=== PATIENT | male | born 1945 | race Caucasian/White ===

== ENCOUNTER 2022-01-02 08:26 | Outpatient (CLI) | payer MEDICARE, OTHER, SELFPAY ==
[2022-01-02 13:56] LABS: Basophils Absolute Auto 0.06 K/uL (0.00-0.30); Basophils Percent Auto 1.1 % (0.0-3.0); Eosinophils Absolute Auto 0.17 K/uL (0.00-0.50); Hematocrit 38.9 % (37.0-53.0); Immature Granulocytes Abs Auto 0.01 K/uL (0.00-0.30); Lymphocytes Percent Auto 14.8 % (20-44); Mean Corpuscular HGB Conc 33 gm/dL (32-36); Mean Corpuscular Hemoglobin 30 pg (26-34); Mean Corpuscular Volume 88 fL (80-100); Monocytes Percent Auto 10.7 % (0.0-11.0); Neutrophils Absolute Auto 3.93 K/uL (1.7-7.0); Neutrophils Percent Auto 70.2 % (42.0-72.0); Platelet Count* 255 K/uL (140-440); RDW Coefficient of Variation % 15.8 % (11.5-15.5)
[2022-01-02 14:05] LABS: Slide Review Reflex No
[2022-01-02 16:59] LABS: Chloride* 95 mmol/L (96-114); Potassium* 4.3 mmol/L (3.6-5.1); Sodium* 129 mmol/L (135-149)
[2022-01-02 17:01] LABS: Cholesterol* 180 mg/dL (90-199); Creatinine* 0.7 mg/dL (0.5-1.5); Estimated Glomerular Filt Rate 94 ml/min
[2022-01-02 17:02] LABS: Blood Urea Nitrogen* 11 mg/dL (7-30); Carbon Dioxide* 29 mmol/L (20-32); Glucose* 96 mg/dL (60-115); Triglycerides* 86 mg/dL (40-149)
[2022-01-02 17:03] LABS: HDL Cholesterol* 68 mg/dL (>=40); LDL Cholesterol Calculated 95 mg/dL (<100)
== END 2022-01-02 08:27 | disposition home or self-care (01) ==
PROVIDERS: PCP Family Medicine; Visit Provider Family Medicine
DX: E78.5 Hyperlipidemia, unspecified (principal); I10 Essential (primary) hypertension; M10.9 Gout, unspecified
CPT/HCPCS: 80048; 80061; 85025

== ENCOUNTER 2022-12-31 09:42 | Outpatient (CLI) | payer MEDICARE, OTHER, SELFPAY | END 2022-12-31 09:43 | disposition home or self-care (01) | PROVIDERS: PCP Family Medicine; Visit Provider Family Medicine | DX: E78.2 Mixed hyperlipidemia (principal); Z79.899 Other long term (current) drug therapy | CPT/HCPCS: 80048; 80061; 84460; 85025 ==

== ENCOUNTER 2023-02-12 07:03 | Day surgery (SDC) | payer MEDICARE, OTHER, SELFPAY ==
[2023-02-12] VITALS (13 sets, daily range): BP systolic 122–161; BP diastolic 65–98; PULSE 55–70; RESP 14–20; TEMP 36.4–36.7; O2SAT 93–100; BMI 32.7
[2023-02-12] MEDS: SODIUM CHLORIDE 0.9 % (FLUSH) 10 ML SYRINGE IVF (07:35)
[2023-02-12] MEDS: LACTATED RINGERS 1000 ML 1,000 ML 100 ML IV ×2 (07:35→10:26)
--- NOTE | 2023-02-12 08:00 | CRLHL7_ITS ---
For Patients: As a result of the Century Cures Act, medical imaging exams and procedure reports are released immediately into your electronic medical record. You may view this report before your referring provider. If you have questions, please contact your health care provider. 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 Technique: Nuclear medicine sentinel lymph node injection. Comparison: None Findings: DOSE: 0.52 millicuries technetium 99 M filtered sulfur colloid. Following approximately 1.0 milliliters of 1 percent xylocaine anesthesia, the radiotracer was placed intradermally at the site of interest in the right forearm. No post injection imaging was performed in the Radiology department. Impression: Uneventful right forearm nuclear medicine sentinel lymph node injection as detailed above. Dictated by Robe Parmar MD @ 02/12/2023 6:13:22 PM (Electronically Signed)
--- NOTE | 2023-02-12 09:26 | P.GSOP_ITS ---
Operative Note Pre-op diagnosis: 1. 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 Post-op diagnosis: Same Type of Procedure: 1. Wide local excision of right forearm melanoma with complex incisional closure of 15.5 cm. 2. Right axillary sentinel lymph node biopsy. Indications: 77-year-old male was seen in clinic for evaluation of a newly diagnosed right forearm melanoma. The lesion has been there for a long time. This was biopsied by his primary care doctor in clinic and pathology returned as melanoma with no ulceration 2.8 mm deep with positive peripheral and deep margins. On clinical exam in the right proximal to mid radial forearm there was a healing scab from patient's previous biopsy. The scab was approximately 1 cm wide. Given patient's clinical history and his physical exam, wide local excision of melanoma with right axillary sentinel lymph node biopsy was recommended. The procedure was discussed in detail. The risks associated procedure including inf ection, bleeding, lymphedema, and the need for additional treatments were all discussed with the patient, and he agreed to proceed. Procedure Description: After discussing the risks and benefits of the procedure, the patient signed informed consent.? The operative site was marked and the patient was brought to the operating room and placed on the operating table in supine position.? Care was taken to pad the patient's pressure points.?? The patient was then intubated by anesthesia.?? The operative site was then prepped and draped in the usual st erile fashion.? A time-out was then performed. The right forearm biopsy scar was identified. It was measuring approximately 9 mm. 2 cm medial and lateral margins were measured and the incision was marked with a marking pen. Local anesthetic was injected at the surgical site. The ellipse of skin containing 0.9 cm melanoma scar was then excised with cautery. The excision of 2.8 mm melanoma was carried down to the fascia with 2 cm lateral and medial margins. The ellipse of skin was marked with a single stitch superior and double lateral and sent to pathology for permanent section. Medial and lateral skin flaps were then developed with cautery. Anterior cubital vein was in the plane of dissection and that was divided and tied with Vicryl ties. Hemostasis was achieved with cautery and Vicryl ties. The skin flaps were extensive to achieve tension free closure. This incision extended into the distal upper arm. Moist Ray-Daniel was then placed over the surgical field and we proceeded with a right sentinel lymph node biopsy. Radioactive tracer was injected in the right forearm near the healing scar over 1 hour prior to surgical incision. 5 milliliters of Lymphazurin blue were personally injected by wv near the right forearm healing melanoma scar intraoperatively for sentinel lymph node identification. A Alexys counter was brought onto the field in the right axilla to identify the best area for the sentinel node biopsy. An oblique skin incision was then made over that area. Subcutaneous tissues were dissected with electrocautery. No green lymph nodes were identified. An enlarged but fatty lymph node was palpated and was excised with cautery. This did not have any signal. An additional lymph node was identified with radioactive signal. This was excised with cautery and sent to pathology as sentinel lymph node #1. This node was also enlarged but was fatty and not matted. No additional lymph nodes were palpated. Axillary julián tissue was examined again with the [place] counter and and no additional significant signal was identified. The first enlarged lymph node with no signal was sent to pathology as additional right axillary tissue. Hemostasis was achieved with cautery. Deltopectoral fascia was then closed with interrupted 3-0 Vicryl sutures. This incision was then closed in layers with 3-0 Vicryl interrupted stitches to re-approximate subcutaneous layer and 4-0 Monocryl subcuticular stitch to close skin. We then proceeded with right forearm incisional closure. This was closed in layers with interrupted 2-0 in 3-0 Vicryl sutures. Minimal tension was noted in the center of the incision. This forearm incision was 15.5 cm. Steri-Strips and sterile dressings were then placed over the both incisions. All counts were correct at the end of the case. The patient was then woken and transported to the recovery area in stable condition. ? The patient tolerated the procedure well. Anesthesia: GETA Surgeon: Terrance Hutton MD Estimated blood loss (mL): 10 Additional Specimen Information: 1. Right forearm melanoma. 2. Right axillary sentinel lymph node 1. 3. Additional right axillary lymph node. Condition: stable Disposition: PACU Date of procedure: 02/12/23 Primary Cutaneous Melanoma Operation Performed with Curative Intent: Yes Original Breslow thickness of the lesion: Depth in mm (2.8) Depth in MM: 2 Clinical margin width (measured from the edge of the lesion or the prior exci kenyon scar): 2 cm Depth of Excision: Full thickness skin/subcutaneous tissue down to fascia (melanoma)
[2023-02-12] MEDS: CEFAZOLIN 2 GM INJ IVP (09:57)
[2023-02-12] MEDS: ISOSULFAN BLUE 5 ML VIAL INJECTION (10:25)
[2023-02-12] MEDS: BUPIVACAINE 0.25% 30 ML 20 ML INJECTION (10:56)
--- NOTE | 2023-02-12 11:59 | W.ANESCHARGE ---
Anesthesia Charges Start Date/Time Anesthesia Start Date: 02/12/23 Anesthesia Start Time: 09:46 Stop Date/Time Anesthesia Stop Date: 02/12/23 Anesthesia Stop Time: 11:58
--- NOTE | 2023-02-12 12:18 | W.ANESCHARGE ---
Anesthesia Charges Start Date/Time Anesthesia Start Date: 02/12/23 Anesthesia Start Time: 09:46 Stop Date/Time Anesthesia Stop Date: 02/12/23 Anesthesia Stop Time: 11:58 Summary Extremes of Age - Over 70 or under 1: MDA
== END 2023-02-12 13:52 | disposition home or self-care (01) ==
PROVIDERS: PCP Family Medicine; Visit Provider Surgery
PROC: (CPT 11600; principal; 2023-02-12 09:00)
PROC: (CPT 11600; 2023-02-12 09:00)
DX: C43.61 Malignant melanoma of right upper limb, including shoulder (principal)
CPT/HCPCS: 11600; 38500; 17999; 01610; 38792; 88305; 88307; 88342; 99100; A9541; J0665; J0690; J2371; J2405; J2704; J3010; J7120

== ENCOUNTER 2023-06-04 11:01 | Outpatient (CLI) | payer MEDICARE, OTHER, SELFPAY | END 2023-06-04 11:02 | disposition home or self-care (01) | PROVIDERS: PCP Family Medicine; Visit Provider Family Medicine | DX: Z01.818 Encounter for other preprocedural examination (principal) | CPT/HCPCS: 80048; 85025 ==

== ENCOUNTER 2023-12-09 10:45 | Outpatient (CLI) | payer MEDICARE, OTHER, SELFPAY ==
--- OUTSIDE RECORDS SUMMARY | 2023-12-09 10:54 | XMS_ITS | Encounter Summary ---
Author Organization [facility] Address [address] [place] [address] Care Team Providers Care Systems Checkout Mechanic Name Role Phone Elsewhere, Pcp Primary Care Provider Unavailabl e Reason for Referral * Outpatient (Routine) - Authorized Specialty Diagnoses / Procedures Referred By Zak giron Referred To Contact Diagnoses Pneumonia Community Acquired Influenza Gonzalo Pichardo M.D. [address] [place] [phone] Robe Bejarano M.D. [address] [place] [phone] Referral ID Status Reason Start Date Expiration Date Visits Requested Visits Authorized [id number] Authorized Continuity of Care 11/23/2023 05/24/2025 1 1 * Outpatient (Routine) - Authorized Specialty Diagnoses / Procedures Referred By Zak giron Referred To Contact Community Internal Medicine Gonzalo Pichardo M.D. [address] [place] [phone] [facility] Region Referral ID Status Reason Start Date Expiration Date V isits Requested Visits Authorized [id number] Authorized 11/23/2023 05/24/2025 1 1 Scheduling Instructions 3-5 Days After Discharge Encounter Details Date Type Department Care Team (Latest Contact Info) Description 11/20/2023 9:33 PM CDT - 11/23/2023 12:31 PM CDT Hospital Encounter [facility], Fifth Floor [address] [place] [address] Marielena Ma M.D. [address] [place] [phone] Thad Ureña M.B.B.S., M.D. [address] [place] [phone] Gonzalo Pichardo M.D. [address] [place] [address] Pneumonia Community Acquired [J18.9] (Primary Dx); Pneumonia Community Acquired; Influenza Discharge Disposition: Home or Self Care Social History Tobacco Use Types Packs/Day Years Used Date Smoking Tobacco: Former Cigarettes Alcohol Use Standard Drinks/Week Comments Yes 2 (1 standard drink = 0.6 oz pur e alcohol) daily [facility] Utilities Answer Date Recorded In the past 12 months has [employer], gas, oil, or water [facility] threatened to shut off services in your home? No 11/20/2023 Humiliation, Afraid, Rape, and Kick questionnair e Answer Date Recorded Within the last year, have y ou been afraid of your partner or ex-partner? No 11/20/2023 Within the last year, have y ou been humiliated or emotionally abused in other ways by your partner or ex-partner? No Within the last year, have y ou been kicked, hit, slapped, or otherwise physically hurt by your partner or ex-partner? No 11/20/2023 Within the last year, have y ou been raped or forced to have any kind of sexual activity by your partner or ex-partner? No 11/20/2023 Overall Financial Resource Strain (CARDIA) Answe r Date Recorded How hard is it for you to pa y for the very basics like food, housing, medical care, and heating? Not hard at all 02/20/2023 Exercise Vital Sign Answer Date Recorde d On average, how many days pe r week do you engage in moderate to strenuous exercise (like a brisk walk)? 3 days 09/30/2023 On average, how many minutes do you engage in exercise at this level? 10 min 09/30/2023 Hunger Vital Sign Answer Date Recorded Within the past 12 months, y ou worried that your food would run out before you got the money to buy more. Never true 11/20/19 24 Within the past 12 months, t he food you bought just didn't last and you didn't have money to get more. Never true 11/20/2023 PRAPARE - Transportation Answer Date Re corded In the past 12 months, has l ack of transportation kept you from medical appointments or from getting medications? No 11/09 In the past 12 months, has l ack of transportation kept you from meetings, work, or from getting things needed for daily living? No 11/20/2023 Nutrition Answer Date Recorded On average, how many serving s of fruits and vegetables do you eat per day (serving size is equal to 1 cup or approximately the size of a tennis ball)? 3-5 09/30/2023 Dental Answer Date Recorded Dental: Regular Dentist Yes 09/30/19 Employment Answer Date Recorded Employment status Retired 09/30/2023 Housing Stability Answer Date Recorded What is your living situation today? [facility] to live 11/20/2023 Sex and Gender Information Value Date Recorded Sex Assigned at Male 09/30/2023 2:25 PM CDT Gender Identity Male 09/30/2023 2:25 PM CDT Sexual Orientation Straight 09/30/2023 2: 25 PM CDT documented as of this encounter Last Filed Vital Signs Vital Sign Reading Time Taken Comments Blood Pressure 120/63 11/23/2023 10:55 AM CDT Pulse 65 11/23/2023 10:55 AM CDT Temperature 36.5 ??C (97.7 ??F) 11/23/2023 5:10 AM CD T Respiratory Rate 18 11/23/2023 10:55 AM CDT Oxygen Saturation 93% 11/23/2023 10:55 AM CDT Inhaled Oxygen Concentration - - Weight 100 kg (221 lb 1.9 oz) 11/22/2023 6:04 AM CDT Height 177.8 cm (5' 10) 11/20/2023 9:33 PM CDT Body Mass Index 31.73 11/20/2023 9:33 PM CDT documented in this encounter Discharge Summaries * Gonzalo Pichardo M.D. - 11/23/2023 12:31 PM CDT DISCHARGE SUMMARY BRIEF OVERVIEW Discharge Hospital: Hospital: [facility] Primary Care Physician: Darci SORIA Discharge Provider Team: [facility] ([facility]) [facility] Primary Care Provider Phone Number: None Primary Care Provider Fax Number: None Admission Date: 11/20/2023 Discharge Date: 11/23/23 PRINCIPAL DIAGNOSIS # Influenza A infections complicated by community-acquired pneumonia due to Haemophilus influenzae SECONDARY DIAGNOSES # Mechanical fall, no injury identified # History of CVA 2017 # Chronic hyponatremia # Elevated liver enzymes, mild # Hypertension # Hypokalemia # Hypomagnesemia # BPH with history urinary retention - patient is status post HoLEP 07/01/2023, doing well since. # Obesity with BMI of 32 DISCHARGE DISPOSITION Home or Self Care [1] ACTIVE ISSUES REQUIRING FOLLOW UP AST and ALT mildly elevated. HCV and HBV screening is negative. Patient reported drinking 2-3 beersper day, recommend patient to stop/cut back drinking alcohol and repeat liver enzymes test in the outpatient setting. Chronic hyponatremia, recommend discontinue Dyazide and see if sodium level improves. Could consider alternative antihypertensives such as losartan if BP becomes elevated. Recommend flu vaccination once available. Consider outpatient physical therapy as suggested by PT. OUTPATIENT FOLLOW UP Scheduled Appointments 11/26/2023 1:00 PM [facility] For appointment details refer to your Patient Appointment Guide. TEST RESULTS PENDING AT DISCHARGE Pending Labs Order Current Status Bacterial Culture, Aerobic + Susceptibility, Respiratory Preliminary result DETAILS OF HOSPITAL STAY REASON FOR ADMISSION Pneumonia Community Acquired HOSPITAL COURSE 78 yo gentleman with medical commorbidities including CVA 2018, chronic hyponatremia, hypertension,BPH s/p HoLEP 07/01/2023, obesity, was sent here from [place] for management of pneumonia. Presentedto [place] [facility] with malaise, productive cough, shortness of breath, decrease appetite, fall due to gen eralized weakness. This was preceded by recent URI sypmtoms. Found to have pneumonia predominantly b/l Lower lobe on CT. Negative for COVID-19. Sputum PCR was positive for Influenza A and also Haemophilus influenzae. Patient received 3 days of IV ceftriaxone and azithromycin in house with plan to complete a 5 day course on discharge with cefdinir. Patient was also started on Tamiflu with plan for5 days. Patient feels much better, remained on room air and cough subsided. Discharge home transported by family. MEDICATIONS CHANGED DURING THIS HOSPITAL STAY Discharge Medications Stopped Medications triamterene-hydroCHLOROthiazide 37.5-25 mg per capsule Commonly known as: Dyazide New Medications Sig Disp Start cefdinir 300 mg capsule Commonly known as: Omnicef Take 1 capsule (300 mg total) by mouth 2 (two) times a day before morning and evening meals for 3 doses Indications: Respiratory tract infection, community acquired. 3 capsule oseltamivir 75 mg capsule Commonly known as: Tamiflu Take 1 capsule (75 mg total) by mouth 2 (two) times a day for 7 doses Indications: Influenza. 7 capsule Medications To Continue Sig Disp Start aspirin [address] tablet Take 1 tablet (81 mg total) by mouth daily. Hold for 1 week after surgery atorvastatin 40 mg tablet Commonly known as: Lipitor Take 40 mg by mouth daily. cholecalciferol 25 mcg (1,000 Unit) tablet Generic drug: cholecalciferol (vitamin D3) Take 25 mcg by mouth daily. clopidogreL 75 mg tablet Commonly known as: Plavix Take 1 tablet (75 mg total) by mouth daily. Hold for 1 week after surgery ginkgo biloba leaf extract 60 mg capsule Take 1 capsule by mouth daily. hydrOXYzine 25 mg tablet Commonly known as: Atarax Take 25 mg by mouth at bedtime as needed for allergies. metoprolol succinate 200 mg 24 hr tablet Commonly known as: Toprol XL Take 1 tablet by mouth daily. Multiple Vitamins tablet Generic drug: multivitamin Take 1 tablet by mouth daily. omega-3 fatty acids-fish oil 300-1,000 mg per capsule Take 2 g by mouth daily. omeprazole [address] capsule Commonly known as: PriLOSEC Take 20 mg by mouth every morning before breakfast. THIAMINE HCL (VITAMIN B1) ORAL Take 1 tablet by mouth daily. vitamin E 90 mg (200 Unit) capsule Take 1 capsule by mouth daily. CONSULTS ORDERED DURING THIS ADMISSION IP CONSULT TO CARE MANAGEMENT Social Determinants of Health Social Determinants of Health Transportation Needs: No Transportation Needs (11/20/2023) PRAPARE - Transportation Lack of Transportation (Medical): No Lack of Transportation (Non-Medical): No Housing Stability: Low Risk (11/20/2023) Housing Stability Housing: Living Situation: I have a steady place to live Food Insecurity: No Food Insecurity (11/20/2023) Hunger Vital Sign Worried About Running Out of Food in the Last Year: Never true Ran Out of Food in the Last Year: Never true Utilities: Not At Risk (11/20/2023) [facility] Utilities Threatened with loss of utilities: No Intimate Partner Violence: Not At Risk (11/20/2023) Humiliation, Afraid, Rape, and Kick questionnaire Fear of Current or Ex-Partner: No Emotionally Abused: No Physically Abused: No Sexually Abused: No CONDITION AT DISCHARGE improved I saw and evaluated Mr. Kaushik Daily today and provided counseling [id number] at bedside. I personally spent a total of greater than 30 minutes in counseling and coordination of care as described above to facilitate the hospital discharge. Discharge instructions were provided to the patient and caregiver(s). documented in this encounter Discharge Instructions * Discharge Instr - Non Talent Follow-Ups* Diana Mixon - 11/23/2023 8:44 AM CDT PCP to follow in 3-5 days Please call to set up post Hospital Appointment Office: [phone] * Attachments The following attachments cannot be sent through Care Everywhere. * Pneumonia: Community-Acquired Pneumonia in Adults ([place]) documented in this encounter Medications at Time of Discharge Medication Sig Dispensed Refills Start Date End Date aspirin [address] tablet Take 1 tablet (81 mg total) by mouth daily. Hold for 1 week after surgery 07/01/2023 atorvastatin (LIPITOR) 40 mg tablet Take 40 mg by mouth daily. 01/25/2018 cholecalciferol, vitamin D3, (cholecalciferol) 25 mcg (1,000 Unit) tablet Take 25 mcg by mouth daily. clopidogreL (PLAVIX) 75 mg tablet Take 1 tablet (75 mg total) by mouth daily. Hold for 1 week after surgery 07/01/2023 ginkgo biloba leaf extract 60 mg capsule Take 1 capsule by mouth daily. hydrOXYzine (ATARAX) 25 mg tablet Take 25 mg by mouth at bedtime as needed for allergies. metoprolol succinate (TOPROL-XL) 200 mg 24 hr tablet Take 1 tablet by mouth daily. 01/13/2018 multivitamin (Multiple Vitamins) tablet Take 1 tablet by mouth daily. omega-3 fatty acids-fish oil 300-1,000 mg per capsule Take 2 g by mouth daily. omeprazole (PriLOSEC) [address] capsule Take 20 mg by mouth every morning before breakfast. 03/17/2018 THIAMINE HCL, VITAMIN B1, ORAL Take 1 tablet by mouth daily. vitamin E 90 mg (200 Unit) capsule Take 1 capsule by mouth daily. 01/09/2011 cefdinir (Omnicef) 300 mg capsuleIndications:Re spiratory tract infection, community acquired Take 1 capsule (300 mg total) by mouth 2 (two) times a day before morning and evening meals for 3 doses Indications: Respiratory tract infection, community acquired. 3 capsule 11/23/2023 11/25/2023 oseltamivir (Tamiflu) 75 mg capsuleIndications:In fluenza Take 1 capsule (75 mg total) by mouth 2 (two) times a day for 7 doses Indications: Influenza. 7 capsule 11/23/2023 11/27/2023 documented as of this encounter Progress Notes * Gonzalo Pichardo M.D. - 11/22/2023 4:51 PM CDT Images from the original note were not included. Internal Medicine Progress Note Date of Admission: 11/20/2023 LOS: 2 days Primary Care Physician: Darci SORIA SUBJECTIVE REASON FOR ADMISSION: Pneumonia Community Acquired Interval Updates Cough is improving, no shortness of breath at rest. Recommended him to walk around more and see howhe feels. Appetite appears to be decent. Intake/Output Summary (Last 24 hours) at 11/22/2023 1751 Last data filed at 11/22/2023 1651 Gross per 24 hour Intake 1690 ml Output 395 ml Net 1295 ml OBJECTIVE VITAL SIGNS BP 122/78 (BP Location: Left arm;Upper, Patient Position: Sitting) Pulse 86 Temp 36.3 ??C (Temporal) Resp 17 Ht 177.8 cm Wt 100 kg SpO2 100% BMI 31.73 kg/m?? PHYSICAL EXAMINATION General: No acute distress. Alert and Orientated HEENT: Normocephalic, atraumatic. No scleral icterus. Oral mucosa moist. Cardiovascular: Normal rate, regular rhythm. Lungs: Clear to Auscultation Abdomen: Soft, nontender, nondistended. Extremities: No bilateral lower extremity edema. Intake/Output Summary (Last 24 hours) at 11/22/2023 1751 Last data filed at 11/22/2023 1651 Gross per 24 hour Intake 1690 ml Output 395 ml Net 1295 ml DIAGNOSTICS Results from last 7 days Lab Units 11/22/23 0808 11/21/23 0858 11/20/23 1705 WBC x10(9)/L 11.4* 10.4* 12.8* HEMOGLOBIN g/dL 11.2* 11.1* 11.0* HEMATOCRIT % 34.0* 33.4* 32.9* PLATELETS AUTO x10(9)/L 381* 339* 321* Results from last 7 days Lab Units 11/22/23 0808 11/21/23 0858 11/20/23 1705 SODIUM P mmol/L 130* 128* 126* CHLORIDE P mmol/L 92* 91* 87* BUN P mg/dL 14 16 18 CREATININE mg/dL 0.86 0.94 1.03 CALCIUM P mg/dL 8.7* 8.6* 9.3 Results from last 7 days Lab Units 11/22/23 0808 11/21/23 0858 11/20/23 1705 ALBUMIN P g/dL 3.2* 3.2* 3.5 AST P U/L 84* 101* 119* ALT P U/L 91* 96* 91* ALK PHOS P U/L 120 123 115 BILIRUBIN TOTAL P mg/dL 0.4 0.6 0.8 Micro: Results for orders placed or performed during the hospital encounter of 11/20/23 (from the past 336hour(s)) HBs Antigen Scrn, Serum Specimen: Blood, Venous Result Value HBs Antigen Scrn, S Nonreactive HCV Ab w/Reflex to HCV PCR, Serum Specimen: Blood, Venous Result Value HCV Ab, S Negative Pneumonia Panel, PCR Specimen: Sputum Result Value Specimen Source SPUTUM Acinetobacter calcoaceticus-baumannii complex Undetected Enterobacter cloacae complex Undetected Escherichia coli Undetected Haemophilus influenzae Detected >=10(7) (A) Klebsiella aerogenes Undetected Klebsiella oxytoca Undetected Klebsiella pneumoniae complex Undetected Moraxella catarrhalis Undetected Proteus species Undetected Pseudomonas aeruginosa Undetected Serratia marcescens Undetected Staphylococcus aureus complex Undetected Streptococcus agalactiae Undetected Streptococcus pneumoniae Undetected Streptococcus pyogenes Undetected Chlamydia pneumoniae Undetected Legionella pneumophila Undetected Mycoplasma pneumoniae Undetected Adenovirus Undetected Coronavirus Undetected Human Metapneumovirus Undetected Human Rhinovirus/Enterovirus Undetected Influenza A Detected (A) Influenza B Undetected Parainfluenza Undetected Respiratory Syncytial Virus Undetected Gram Stain Specimen: Sputum Specimen Source Site: Sputum Result Value Gram Stain Mixed microbiota Radiology: Reviewed pertinent radiology reports. Last 2 days: CT Chest with IV Contrast, CT Abdomen Pelvis with IV Contrast Result Date: 11/20/2023 Impression: Multifocal bilateral pneumonia, predominantly in the lower lobes. No acute findings in the abdomen or pelvis. DX Chest AP or PA and Lateral 2 Views Result Date: 11/20/2023 Impression: Normal chest MEDICATIONS: Scheduled Meds: aspirin, 81 mg, oral, Daily atorvastatin, 40 mg, oral, Daily at bedtime azithromycin, 500 mg, oral, Daily at bedtime cefTRIAXone, 2 g, intravenous, Daily at bedtime clopidogreL, 75 mg, oral, Daily enoxaparin, 40 mg, subcutaneous, Daily at bedtime metoprolol succinate, 200 mg, oral, Daily oseltamivir, 75 mg, oral, BID pantoprazole, 40 mg, oral, Daily before morning meal [Held by provider] triamterene-hydroCHLOROthiazide, 1 capsule, oral, QAM Continuous Infusions: PRN Meds: acetaminophen guaiFENesin hydrOXYzine ASSESSMENT / PLAN # Influenza A infections complicated by community-acquired pneumonia due to Haemophilus influenzae - Presented with malaise, productive cough, shortness of breath, decrease appetite, fall due to generalized weakness. Followed by a recent URI syndrome with runny nose. Found to have pneumonia predominantly b/l Lower lobe on CT. negative for COVID-19. Did consult speech, however overall no major concern from speech/swallow standpoint. Plan: - Continue IV ceftriaxone (5 days) and Azithromycin (3 days) - Start Tamiflu for 5 days - RT to assess. Aerobika. Incentive spirometry # Mechanical fall # History of CVA 2017 - Appreciate PT/OT evaluation, patient will return home once ready. - Patient is chronically on DAPT due to the CVA. Continue statin. # Chronic hyponatremia - Potentilly related to the Dyazide, this should be discontinued. - Will monitor. # Elevated liver enzymes, mild: AST and ALT mildly elevated. AST has been chronically elevated. HCVand HBV screening is negative. He reported drinking 2-3 beers per day, recommend patient to stop drinking alcohol and repeat liver enzymes test in the outpatient setting. # Hypertension - resume home medications, metoprolol. Discontinue Dyazide, not a good option given falls and also hyponatremia. # Hypokalemia, replaced will monitor. # Hypomagnesemia, replaced will monitor. # BPH with history urinary retention - patient is status post HoLEP 07/01/2023, doing well since. # Obesity with BMI of 32 DISPOSITION: Pending improvement. NUTRITION: ANTICOAGULANTS/DVT PROPHYLAXIS: AntiCoag AntiPlatelet Meds IP/OP Low Molecular Weight Heparins Refills Start End enoxaparin injection 40 mg (Lovenox) -- 11/20/2023 -- 40 mg, subcutaneous, Daily at bedtime Platelet Aggregation Inhibitors - Thienopyridine Agents Refills Start End clopidogreL tablet 75 mg (Plavix) -- 11/21/2023 -- 75 mg, oral, Daily DIET: Current Diet Adult Diet Regular starting at 11/22 923 INFUSIONS: LDA: Armstrong Catheter Present?: No. CODE STATUS: DNR/DNI Total time spent 45 minutes, including time spent in slyw-ow-eyya evaluation and coordination of care Gonzalo Pichardo M.D. [facility] * Jerrell Miller, P.T. - 11/22/2023 10:38 AM CDT Physical Therapy Inpatient Treatment Note SUBJECTIVE Patient: Kaushik Daily Room: [facility] Referring/Attending Provider: Gonzalo Pichardo M.D. Medical Diagnosis: 1. Pneumonia Community Acquired [J18.9] Payor: MEDICARE / Plan: MEDICARE A AND B / Product Type: Medicare / Subjective Comments: Pt awake in bedside chair, agreeable to working with therapist, notes continues to cough, had difficulty sleeping as a result. Activity Orders: Nursing Activity Orders (From admission, onward) Start Ordered 11/20/237 Activity/Position: Up to Chair, Up with Assistance; Other (comment); Ambulate as muchas possible considering previous activity level and physical functioning. Resume activity level following recovery from procedure and/or tests unless otherwise ... Until discontinued Question Answer Comment Activity Level: Up to Chair Activity Level: Up with Assistance Ambulation Goals: Other (comment) Ambulation goals comment: Ambulate as much as possible considering previous activity level and physical functioning. Resume activity level following recovery from procedure and/or tests unless otherwise directed. Up to chair goals: With meals Restrictions/Precautions: None Brace/Device: None 11/20/23 Precautions/Restrictions: Fall Precautions and Aspiration Precautions Weight Bearing Status: Full weight bearing Bed Alarm/Mastic: Bed alarm and Mastic Invasive Lines/Drains: Intravenous line Oxygen Delivery: Room air OBJECTIVE Patient Presents: seated in the chair Pain Assessment: None described Adverse Response to Treatment: none Vitals monitored throughout session; within normal ranges. Therapeutic Exercise: NA Therapeutic Activity: Instructed pt on use of PEP device and incentive spirometer as he is confusedas to the function of each. With PEP, explained goal of preventing airway closure and increasing collateral ventilation. Instructed pt on performing 3x in front of therapist, cueing required to maintain an upright posture and hold breath after inhalation or 5 seconds. With incentive spirometer, explained pt purpose of facilitating a sustained slow deep breath. Instructed pt on performing 3x, cueing required to slow down his breath. Instructed pt on multiple sit to stands, tactile and verbal cues used to promote proper positioningand proper use of arm rests when standing up/sitting down, showed poor carry over during session requiring multiple cues. Instructed pt on stair management to assess performance and aid pt with safe entry into/out of his home. Pt with one railing at home so instructed him to use one railing. Pt with LOB with descent however, this was due to the thread on our therapy steps getting caught on his sock. Pt Instructed to perform again and on second attempt demonstrated a much better performance without LOB. Neuromuscular Re-Education: The following activity was performed in the parallel bars: Pt performedbackwards walking with bilateral UE support for 18 meters to promote LE/trunk stabilization, proprioception, and help reduce his risk for falling. Pt required frequent tactile and verbal cues to maintain an upright trunk posture, keep LE neutral, slide arms back, and take short steps. Pt reports adequate fatigue (RPE: 6/10) at end of activity. Bed Mobility: Did not occur Transfers: Sit to stand: Supervision, Stand to sit: Supervision Devices used: Front wheeled walker Cuing provided: verbal and tactile cues Gait Assessment: Gait Training: Distance: 2x10 meters in hospital room (to and from w/c) Assistance: Contact guard assist Device: Front wheeled walker Quality: increased fwd trunk flexion, fwd head posture, LLE out-toeing Cueing: Verbal, Tactile, for safety awareness, positioning COG over JOY, proper body mechanics, proper posture, and reducing muscle tension Stairs: Gait on Stairs: 2x2 steps Assistive Device: Handrail Assistance: Contact guard assist Cueing: Verbal, Tactile, for safety awareness, positioning COG over JOY, proper body mechanics, andproper posture Patient Disposition at the end of Treatment: was left in bedside chair with chair alarm on at end of session with call light within reach. All needs met and questions answered. Patient/caregiver verbalized understanding to contact nursing staff for all needs including transfers and ambulation if appropriate. Assessment Discharge Recommendations: From a physical therapy standpoint, patient would benefit from discharging home with outpatient therapy. Barriers to Discharge Home: Current functional status Level of Care Needed - PT: Assistance with stairs Equipment Recommended - PT: Front-wheeled walker, Single-point cane Clinical Impression: Mr. Daily is a 78 y.o. male who has been hospitalized 2 day(s) with an admitting diagnosis of: 1. Pneumonia Community Acquired [J18.9] Pt notes he is continuing to cough and produce sputum. Educated pt on proper use and difference between PEP and incentive spirometer. Pt instructed on numerous sit to stands during session, continuedcues to use arm rests. Pt performed backwards walking in parallel bars to promote balance/proprioception, cueing required throughout activity. Pt instructed on stair management with CGA, had one LOB d/t his socks getting caught on step, able to show a better performance of activity upon second attempt. Pt ambulated in hospital room with CGA using his front WW. Currently, patient presents with limitations including weakness, impaired pulmonary function, impaired balance, and limited endurance, leading to difficulty standing, walking, managing stairs, and tolerating activity. Skilled physical therapy treatment during this hospitalization is medically necessary in order to provide graded activities to promote patients functional return, safety and quality of life with the established rehabilitation goals. Functional Goals and Timeframes: PT Goal #1: Feels perform bed mobility pr set up at home with modified independence to return home safely PT Goal #1 to be achieved by: 12/05/23 PT Goal #2: Patient will be able to perform transfers of sit to stand and stand to sit with least restrictive device and modified independence to return home safely PT Goal #2 to be achieved by: 12/05/23 PT Goal #3: Patient will be able to ambulate 75 m with supervision and least restrictive assistive device to return home safely PT Goal #3 to be achieved by: 12/05/23 PT Goal #4: Patient will be able to ascend and descend 4 stairs with home rails per patient's home set up and supervision to return home safely PT Goal #4 to be achieved by: 12/05/23 Plan Patient agrees with the plan of care and goals. Continue per plan of care PT Amount: 1 visit per day PT Frequency: 5 times per week PT Duration: until functional goals are met or patient is discharged from the hospital Plan for next session: progress mobility as able Time Spent with Patient Therapeutic Interventions Neuromuscular Re-Education (min): 15 min Therapeutic Activity (min): 25 min Time Tracking Total Timed Units (min): 40 min Total Treatment Time (min): 40 min Jerrell Zeng P.T. * Gonzalo Pichardo M.D. - 11/21/2023 3:05 PM CDT Images from the original note were not included. Internal Medicine Progress Note Date of Admission: 11/20/2023 LOS: 1 day Primary Care Physician: ELSEWHERE, PCP SUBJECTIVE REASON FOR ADMISSION: Pneumonia Community Acquired Interval Updates Continues to have a productive cough. No dyspnea, satting well on room air. No fever or chills. Cough is causing some abdominal pain likely abdominal wall origin otherwise no pain at rest. Intake/Output Summary (Last 24 hours) at 11/21/20232004 Last data filed at 11/21/2023 1850 Gross per 24 hour Intake 990 ml Output 725 ml Net 265 ml OBJECTIVE VITAL SIGNS BP 147/60 (BP Location: Left arm;Upper) Pulse 69 Temp 36.4 ??C (Temporal) Resp 17 Ht 177.8 cm Wt 100 kg SpO2 93% BMI 31.73 kg/m?? PHYSICAL EXAMINATION General: No acute distress. Alert and Orientated HEENT: Normocephalic, atraumatic. No scleral icterus. Oral mucosa moist. Neck: Supple. No visible goiter. Cardiovascular: Normal rate, regular rhythm. Lungs: Clear to Auscultation Abdomen: Soft, nontender, nondistended. Extremities: No bilateral lower extremity edema. Intake/Output Summary (Last 24 hours) at 11/21/20232004 Last data filed at 11/21/2023 1850 Gross per 24 hour Intake 990 ml Output 725 ml Net 265 ml DIAGNOSTICS Results from last 7 days Lab Units 11/21/23 0858 11/20/23 1705 WBC x10(9)/L 10.4* 12.8* HEMOGLOBIN g/dL 11.1* 11.0* HEMATOCRIT % 33.4* 32.9* PLATELETS AUTO x10(9)/L 339* 321* Results from last 7 days Lab Units 11/21/23 0858 11/20/23 1705 SODIUM P mmol/L 128* 126* CHLORIDE P mmol/L 91* 87* BUN P mg/dL 16 18 CREATININE mg/dL 0.94 1.03 CALCIUM P mg/dL 8.6* 9.3 Results from last 7 days Lab Units 11/21/23 0858 11/20/23 1705 ALBUMIN P g/dL 3.2* 3.5 AST P U/L 101* 119* ALT P U/L 96* 91* ALK PHOS P U/L 123 115 BILIRUBIN TOTAL P mg/dL 0.6 0.8 Micro: Results for orders placed or performed during the hospital encounter of 11/20/23 (from the past 336hour(s)) HBs Antigen Scrn, Serum Specimen: Blood, Venous Result Value HBs Antigen Scrn, S Nonreactive HCV Ab w/Reflex to HCV PCR, Serum Specimen: Blood, Venous Result Value HCV Ab, S Negative Radiology: Reviewed pertinent radiology reports. Last 2 days: CT Chest with IV Contrast, CT Abdomen Pelvis with IV Contrast Result Date: 11/20/2023 Impression: Multifocal bilateral pneumonia, predominantly in the lower lobes. No acute findings in the abdomen or pelvis. DX Chest AP or PA and Lateral 2 Views Result Date: 11/20/2023 Impression: Normal chest MEDICATIONS: Scheduled Meds: aspirin, 81 mg, oral, Daily atorvastatin, 40 mg, oral, Daily at bedtime azithromycin, 500 mg, oral, Daily at bedtime cefTRIAXone, 2 g, intravenous, Daily at bedtime clopidogreL, 75 mg, oral, Daily enoxaparin, 40 mg, subcutaneous, Daily at bedtime metoprolol succinate, 200 mg, oral, Daily pantoprazole, 40 mg, oral, Daily before morning meal [Held by provider] triamterene-hydroCHLOROthiazide, 1 capsule, oral, QAM Continuous Infusions: PRN Meds: acetaminophen guaiFENesin hydrOXYzine ASSESSMENT / PLAN # Community-acquired pneumonia - Presented with malaise, productive cough, shortness of breath, decrease appetite, fall due to generalized weakness. Followed by a recent URI syndrome with runny nose. Found to have pneumonia predominantly b/l Lower lobe on CT. negative for COVID-19, flu/RSV not checked. - Did consult speech, however overall no major concern from speech/swallow standpoint. Plan: - Continue IV ceftriaxone and Azithromycin - Obtain sputum pneumonia panel PCR - RT to assess. Aerobika. # Mechanical fall # History of CVA 2018 - Appreciate PT/OT evaluation - Patient is chronically on DAPT due to the CVA. Continue statin. # Chronic hyponatremia - Potentilly related to the Dyazide, this should be discontinued. - Will monitor. # Hypertension - resume home medications, metoprolol. Discontinue Dyazide, not a good option given falls and also hyponatremia. # Hypokalemia, replaced will monitor. # BPH with history urinary retention - patient is status post HoLEP 07/01/2023, doing well since. # Obesity with BMI of 32 DISPOSITION: Pending improvement. NUTRITION: ANTICOAGULANTS/DVT PROPHYLAXIS: AntiCoag AntiPlatelet Meds IP/OP Low Molecular Weight Heparins Refills Start End enoxaparin injection 40 mg (Lovenox) -- 11/20/2023 -- 40 mg, subcutaneous, Daily at bedtime Platelet Aggregation Inhibitors - Thienopyridine Agents Refills Start End clopidogreL tablet 75 mg (Plavix) -- 11/21/2023 -- 75 mg, oral, Daily DIET: Current Diet Adult Diet Regular; 60 gm Carbs (per meal) starting at 11/19 4568 INFUSIONS: LDA: Armstrong Catheter Present?: No. CODE STATUS: DNR/DNI Total time spent 45 minutes, including time spent in [id number] evaluation and coordination of care Gonzalo Pichardo M.D. [facility] Internal Medicine [facility] * Tanisha Palmer M.S., CCC-TRAVEL MED SURG RN - 11/21/2023 11:32 AM CDT Received order for swallow evaluation at admission. Patient passed RN swallow screen and is currently tolerating a diet of thin liquids and regular textures without aspiration concern. Patient does have history of a CVA, back in 2018, however did not experience dysphagia s/p CVA. Spoke with RN assigned to this patient. No formal swallow evaluation indicated at this time. RN will contact TRAVEL MED SURG RN team should concerns arise during hospital stay. documented in this encounter H&P Notes * Thad Ureña M.B.B.S., M.D. - 11/20/2023 11:20 PM CDT Images from the original note were not included. Date of Admission: 11/20/2023 LOS: 0 days Primary Care Physician: ELSEWHERE, PCP SUBJECTIVE REASON FOR ADMISSION: Pneumonia Community Acquired HISTORY OF PRESENT ILLNESS Kaushik Daily is a 78 y.o. male with history of CVA, history of frequent falling, hypertension, hyperlipidemia, neurological deficit, urinary retention. Patient was sent here from [facility]. Patient reports he has been having difficulty with breathing for about 10 days, associated with cough productive of greenish sputum. Patient denies fever in sweats but has been having chills at home. Also reports decreased appetite. No nausea or vomiting. No chest pain. No change in bowel movement. He denies dizziness. He reports he felt so weak on Saturday, his legs gave out and he fell. Denies hitting his head. REVIEW OF SYSTEMS Constitutional: No fever/night sweats. Weight stable. He reports chills. Also reports loss of appetite. Ears, nose, mouth, throat, and face: No sore throat, nasal discharge. Respiratory: He is complaining of difficulty breathing, cough productive of greenish sputum. Cardiovascular: No chest pain/palpitations/orthopnea/PND. Gastrointestinal: No abdominal pain, nausea, vomiting, diarrhea, constipation, melena, hematochezia. Genitourinary: No dysuria or changes in normal urinary habits. Integument: No rashes or easy bruising. Musculoskeletal: No joint or muscle pain Neurological: No dizziness, BENITEZ, LOC, focal weakness, numbness/tingling. ALLERGIES/CONTRAINDICATIONS Allergies Allergen Reactions Harpreet Inhibitors Cough CURRENT MEDICATIONS Current Outpatient Medications on File Prior to Encounter Medication Sig Dispense Refill Last Dose atorvastatin (LIPITOR) 40 mg tablet Take 40 mg by mouth daily. Past Week cholecalciferol, vitamin D3, (cholecalciferol) 25 mcg (1,000 Unit) tablet Take 25 mcg by mouth daily. Past Week clopidogreL (PLAVIX) 75 mg tablet Take 1 tablet (75 mg total) by mouth daily. Hold for 1 week aftersurgery Past Week ginkgo biloba leaf extract 60 mg capsule Take 1 capsule by mouth daily. Past Week hydrOXYzine (ATARAX) 25 mg tablet Take 25 mg by mouth at bedtime as needed for allergies. Past Week metoprolol succinate (TOPROL-XL) 200 mg 24 hr tablet Take 1 tablet by mouth daily. Past Week multivitamin (Multiple Vitamins) tablet Take 1 tablet by mouth daily. Past Week omega-3 fatty acids-fish oil 300-1,000 mg per capsule Take 2 g by mouth daily. Past Week omeprazole (PriLOSEC) [address] capsule Take 20 mg by mouth every morning before breakfast. Past Week THIAMINE HCL, VITAMIN B1, ORAL Take 1 tablet by mouth daily. Past Week triamterene-hydroCHLOROthiazide (DYAZIDE) 37.5-25 mg per capsule Take 1 capsule by mouth every morning. Past Week vitamin E 90 mg (200 Unit) capsule Take 1 capsule by mouth daily. Past Week aspirin [address] tablet Take 1 tablet (81 mg total) by mouth daily. Hold for 1 week after surgery Unknown Patient History MEDICAL HISTORY Patient Active Problem List Diagnosis Infarction Cerebral (HCC) Other Sequelae Of Cerebral Infarction Unspecified Abnormalities Of Gait And Mobility Weakness Arm Left Infection Wound Postoperative Initial Hyperlipidemia Hypertension Essential Primary Weakness General Stroke Cerebrovascular Accident Personal History History Of Falling Weakness Leg Deficit Neurologic Retention Urinary Numbness Lower Extremity Weakness Leg Right Benign Prostatic Hyperplasia Hypertrophy With Obstruction Pneumonia Community Acquired Past Medical History: Diagnosis Date BenignProstatic Hyperplasia Localized Gastroesophageal Reflux Disease NOS Gout Hyperlipidemia Hypertension NOS Stroke (HCC) SURGICAL HISTORY Past Surgical History: Procedure Laterality Date CYSTOLITHOPAXY N/A 07/01/2023 Procedure: CYSTOLITHOLAPAXY; Surgeon: Robe Cueva M.D.; Location: [facility] OR ENUCLEATION HOLMIUM LASER PROSTATE (HOLEP) < 70 GRAMS N/A 07/01/2023 Procedure: ENUCLEATION HOLMIUM LASER PROSTATE < 70 GRAMS (50 g); Surgeon: Robe Cueva M.D.; Location: [facility] OR TOTAL HIP ARTHROPLASTY FAMILY HISTORY History reviewed. No pertinent family history. SOCIAL HISTORY Social History Tobacco Use Smoking status: Former Types: Cigarettes Smokeless tobacco: Not on file Substance Use Topics Alcohol use: Yes Alcohol/week: 2.0 standard drinks of alcohol Types: 2 Cans of beer per week Comment: daily OBJECTIVE VITAL SIGNS BP 139/61 (BP Location: Left arm;Upper, Patient Position: Sitting) Pulse 92 Temp 36.9 ??C (Temporal) Resp 22 Ht 177.8 cm Wt 100 kg SpO2 97% BMI 31.76 kg/m?? PHYSICAL EXAMINATION General: Alert and Oriented x3. Patient is lying in bed, on his back. Appears comfortable at rest. Afebrile. Cooperative. HEENT: Normocephalic, atraumatic. No scleral icterus. Oral mucosa moist. Neck: Supple. No lymphadenopathy. Cardiovascular: Normal S1/S2. Tachycardic. Lungs: Decreased air entry in lung bases. A little dyspneic. Abdomen: Soft, nontender, nondistended. Positive bowel sounds. Extremities: Mild bilateral lower extremity edema. Neurological: Grossly intact. No intake or output data in the 24 hours ending 11/20/23 2320 DIAGNOSTICS Data Review CBC: Results from last 7 days Lab Units 11/20/23 1705 WBC x10(9)/L 12.8* HEMOGLOBIN g/dL 11.0* HEMATOCRIT % 32.9* PLATELETS AUTO x10(9)/L 321* BMP: Results from last 7 days Lab Units 11/20/23 1705 SODIUM P mmol/L 126* CHLORIDE P mmol/L 87* BUN P mg/dL 18 CREATININE mg/dL 1.03 CALCIUM P mg/dL 9.3 Coagulation: Cardiac Markers: Liver Panel: Results from last 7 days Lab Units 11/20/23 1705 ALBUMIN P g/dL 3.5 AST P U/L 119* ALT P U/L 91* ALK PHOS P U/L 115 BILIRUBIN TOTAL P mg/dL 0.8 Microbiology: No results found for this visit on 11/20/23 (from the past 72 hour(s)). EKG: ECG 12 Lead Result Date: 11/20/2023 Sinus rhythm Premature atrial complexes Low voltage QRS Nonspecific ST and T wave abnormality When compared with ECG of 20-Feb-2023 14:21, Premature ventricular complexes are no longer present QT has shortened Reviewed by JOSE Valencia Radiology: No orders to display ASSESSMENT / PLAN Community-acquired pneumonia. Multifocal pneumonia. Mechanical fall, frequent falls. Patient is reporting difficulty breathing x 10 days, associated with cough productive of greenish sputum. No history of contact with any sick persons. Patient is negative for flu, RSV and COVID-19. WBC elevated at 12.8. CT chest - multifocal bilateral pneumonia, predominantly in the lower lobes. Patient was given azithromycin and Rocephin at [place], continue. Follow up blood culture and sputum culture. PTOT. Hypertension - resume home medications, metoprolol, triamterene-HCTZ. Monitor vital signs. Hyponatremia - Na 126. This appears to be chronic. Check BNP. Hypokalemia - K 3.4. Patient received 40 mEq of potassium at [place]. Repeat electrolytes in the morning. Elevated LFTs - ALT 91, AST 119. Trend. Hyperlipidemia - resume Lipitor. History of CVA. Neurological deficit. Resume home aspirin, Lipitor and Plavix. BPH with Urinary retention - patient is status post HoLEP 07/01/2023. Obesity with BMI of 31.76 - encourage weight loss. ANTICOAGULANTS/DVT PROPHYLAXIS: AntiCoag AntiPlatelet Meds IP/OP Low Molecular Weight Heparins Refills Start End enoxaparin injection 40 mg (Lovenox) -- 11/20/2023 -- 40 mg, subcutaneous, Every 24 hours scheduled Platelet Aggregation Inhibitors - Thienopyridine Agents Refills Start End clopidogreL tablet 75 mg (Plavix) -- 11/21/2023 -- 75 mg, oral, Daily DIET: Current Diet Adult Diet Regular; 60 gm Carbs (per meal) starting at 11/198 INFUSIONS: LDA: Armstrong Catheter Present?: No. CODE STATUS: DNR/DNI Anticipated discharge date and discharge in 2-3 days. Total time spent 75 minutes. Charissa Zuniga M.D. documented in this encounter Consult Notes * Andreina Lopez L.I.C.S.W. - 11/22/2023 1:41 PM CDTAssociated Order(s): IP CONSULT TO CARE MANAGEMENT SUBJECTIVE Patient is a 78 y.o. male who was admitted to [facility] 11/20/2023 due to Pneumonia Community Acquired [J18.9]. Patient was not seen for consult. Social work was consulted to provide an advance directive. OBJECTIVE Patient Active Problem List Diagnosis Infarction Cerebral (HCC) Other Sequelae Of Cerebral Infarction Unspecified Abnormalities Of Gait And Mobility Weakness Arm Left Infection Wound Postoperative Initial Hyperlipidemia Hypertension Essential Primary Weakness General Stroke Cerebrovascular Accident Personal History History Of Falling Weakness Leg Deficit Neurologic Retention Urinary Numbness Lower Extremity Weakness Leg Right Benign Prostatic Hyperplasia Hypertrophy With Obstruction Pneumonia Community Acquired ASSESSMENT / PLAN ASSESSMENT Patient was not assessed-care coordination only. INTERVENTION This functional tester typewriters left advance directive with bedside nurse and offered to call patient if patient wishedto review or had questions. Nurse reported she would give advance directive to patient. PLAN Nurse will provide advance directive to patient. Case management to review advance directive with patient if desired by patient. * Deloris Mauro O.T., O.T.Danny. - 11/21/2023 11:00 AM CDT Inpatient Occupational Therapy Evaluation and Treatment SUBJECTIVE Patient: Kaushik Daily Room: [address] [place] [address] Referring/Attending Provider: Gonzalo Pichardo M.D. Medical Diagnosis: Pneumonia Community Acquired [J18.9] Payor: MEDICARE / Plan: MEDICARE A AND B / Product Type: Medicare / Reason for OT Referral: Eval & Treat, Discharge Planning Onset Date: 11/20/2023 Patient/Caregiver Goals: Decrease pain, Return to home, and Return to prior level of function Past Medical / Surgical History: Patient Active Problem List Diagnosis Infarction Cerebral (HCC) Other Sequelae Of Cerebral Infarction Unspecified Abnormalities Of Gait And Mobility Weakness Arm Left Infection Wound Postoperative Initial Hyperlipidemia Hypertension Essential Primary Weakness General Stroke Cerebrovascular Accident Personal History History Of Falling Weakness Leg Deficit Neurologic Retention Urinary Numbness Lower Extremity Weakness Leg Right Benign Prostatic Hyperplasia Hypertrophy With Obstruction Pneumonia Community Acquired Past Medical History: Diagnosis Date BenignProstatic Hyperplasia Localized Gastroesophageal Reflux Disease NOS Gout Hyperlipidemia Hypertension NOS Stroke (HCC) Past Surgical History: Procedure Laterality Date CYSTOLITHOPAXY N/A 07/01/2023 Procedure: CYSTOLITHOLAPAXY; Surgeon: Robe Cueva M.D.; Location: [facility] OR ENUCLEATION HOLMIUM LASER PROSTATE (HOLEP) < 70 GRAMS N/A 07/01/2023 Procedure: ENUCLEATION HOLMIUM LASER PROSTATE < 70 GRAMS (50 g); Surgeon: Robe Cueva M.D.; Location: [facility] OR TOTAL HIP ARTHROPLASTY History of Present Illness: Kaushik Daily is a 78 y.o. male who was admitted to [facility] in [place] on 11/20/2023 due to Pneumonia Community Acquired [J18.9] Subjective Comments: Patient alert and agreeable to therapy. Patient's daughter and her spouse present upon OT arrival and throughout session. Activity Orders: Nursing Activity Orders (From admission, onward) Start Ordered 11/20/23 3486 Activity/Position: Up to Chair, Up with Assistance; Other (comment); Ambulate as muchas possible considering previous activity level and physical functioning. Resume activity level following recovery from procedure and/or tests unless otherwise ... Until discontinued Question Answer Comment Activity Level: Up to Chair Activity Level: Up with Assistance Ambulation Goals: Other (comment) Ambulation goals comment: Ambulate as much as possible considering previous activity level and physical functioning. Resume activity level following recovery from procedure and/or tests unless otherwise directed. Up to chair goals: With meals Restrictions/Precautions: None Brace/Device: None 11/20/23 3996 Fall risk: Is the patient at risk of falls? Yes Fall in the last 12 months? yes Precautions/Restrictions: Fall Precautions and Aspiration Precautions Weight Bearing Status: Not applicable Lines/Drains: none Oxygen Delivery: room air Prior Level of Function/Occupational Profile: Level of independence: Independent with ADLs and functional transfers and Independent with homemaking with ambulation Lives: with spouse Receives help from: family Driving: Independent Occupational Role: Retired Home Set Up: Type of home: House Home layout: One level Home access: 4 stairs to enter with rails Bathroom set up: walk in shower, shower chair, grab bars in shower, comfort height/tall toilet, andfamily reports that they will be installing grab bars by toilet Available Equipment: building guard deputy sheriff, sock aid, cane, and four wheeled walker OBJECTIVE Pain Assessment: Pain Ratin/10 Cognition: Alert Screen: Hearing: patient appears hard of hearing Vision: wears glasses UE ROM: within functional limits UE Strength: within functional limits Bed Mobility: Did not occur Transfers: -Sit <> stand: patient performed sit <> stands on chair, using FWW, with SBA and no VC required. -Pt performed functional mobility in room, chair > sink > around room > chair, using FWW, with SBA and VC required for FWW manipulation as patient was picking up walker instead of pushing it. -Devices used: FWW ADL: -Grooming/hygiene: Patient performed oral hygiene standing at sink with SBA, using FWW. VC requiredfor FWW placement at sink. Patient educated on walker manipulation/placement with 4WW to improve safety and decrease fall risk in home environment. Patient verbalized understanding. Outcome Measures: AM-PAC AM-PAC Activity: How much help from another person does the patient currently need??? Putting on and taking off regular lower body clothing?: A Little Putting on and taking off regular upper body clothing?: None Taking care of personal grooming such as brushing teeth?: None Bathing (including washing, rinsing, drying)?: A Little Toileting, which includes using toilet, bedpan, or urinal?: A Little Eating meals?: None Daily Activities Raw Score (max 24): 21 Daily Activities Standardized Score: 44.27 Interpretation: Clinicians answer the AM-PAC Inpatient Short Form based on observed patient activity and/or clinical judgement (ie. patient can be scored without physically performing each activity) According to scoring guidelines: Based on scoring guidelines using the raw score value: -Those going to home had an average score at or above 18 -Those going to facility had an average score at or below 17 Interventions provided 11/21/2023: Evaluation completed. Treatment today consisted of: initial evaluation and providing patient with education regarding safety in home upon d/c with completion of ADL and functional mobility Patient Disposition: Upon therapist arrival, was seated in chair, family/caregiver was present, and call light in reach and at end of session patient was seated in chair, family/caregiver was present, and call light in reach. All needs met and questions answered. Patient/caregiver verbalized understanding to contact nursing staff for all needs including transfers and ambulation if appropriate. A gait belt was utilized for safety during session. Contacted health care law specialist and social services aide regarding discharge/safety recommendations and patient's status during therapy session Assessment Discharge Recommendations: From an occupational therapy standpoint, patient would benefit from home with support from family and a formal home environment evaluation due to multiple falls within the home in the last year. Patient and family educated that patient should receive assistance/supervision with toilet transfers, shower transfers, bathing, and LE dressing to ensure safety in home environment. Patient may benefit from assistance with toileting, dressing, toilet transfers, shower transfers, showering/bathing, housekeeping, shopping, and meal preparation upon discharge. Clinical Impression: Mr. Daily is a 78 y.o. individual who has been hospitalized 1 day(s) with an admitting diagnosis of: Pneumonia Community Acquired [J18.9]. Prior to hospitalization, Kaushik Daily was residing in a one story home with his spouse, completing ADL/IADL independently, and completing functional mobility and functional transfers with modifiedindependence using a cane. Currently, this patient presents with the following functional limitations: slight imbalance, resulting in increased need for assistance with ADL/IADL, functional mobility, and functional transfers. Patient and family educated that patient should receive assistance/supervision with toilet transfers, shower transfers, bathing, and LE dressing to ensure safety in home environment. Patient and family agreeable. Skilled occupational therapy treatment during this hospitalization is medically necessary in order to provide graded activities to promote patients functional return, safety and quality of life with the established rehabilitation goals. Kaushik Daily has good rehab potential to meet the expected outcomes in a reasonable period of time. Comorbidities: listed in table above Personal Factors: Age, Balance impairment, history of falls, and needs assistive device Performance Deficits: 1-3 Occupational Profile and History: brief Clinical Decision Making: Low complexity Barriers to Discharge: current functional status and fall risk Functional Goals and Timeframes: OT Goal #1: Patient will perform toileting including di cares, transfer on/off toilet, and clothing management up/dpown with SBA, using AE as needed OT Goal #1 to be achieved by: 11/28/23 OT Goal #2: Patient will perform lower body dressing with SBA, using AE as needed OT Goal #2 to be achieved by: 11/28/23 Plan Patient agrees with the plan of care and goals. Plan of care initiated OT Frequency: 3 times per week OT Duration: until functional goals are met or patient is discharged from the hospital Interventions Planned: Patient/Caregiver Education, Self-care/Home Management, Therapeutic Functional Activity, Therapeutic Exercise, Neuromuscular Re-education Plan for next session: ADL Time Spent with Patient Evaluations OT Eval - Low Complexity : 20 min Time Tracking Total Treatment Time (min): 20 min * Jerrell Miller PKathy. - 11/21/2023 9:50 AM CDT Inpatient Physical Therapy Evaluation and Treatment SUBJECTIVE Patient: Kaushik Daily Room: 5736/5736- Referring/Attending Provider: Gonzalo Pichardo M.D. Medical Diagnosis: 1. Pneumonia Community Acquired [J18.9] Payor: MEDICARE / Plan: MEDICARE A AND B / Product Type: Medicare / Reason for PT Referral: Eval & Treat, Discharge Planning Onset Date: 11/20/2023 Patient/Caregiver Goals: Return to home and Return to prior level of function Past Medical / Surgical History: Patient Active Problem List Diagnosis Infarction Cerebral (HCC) Other Sequelae Of Cerebral Infarction Unspecified Abnormalities Of Gait And Mobility Weakness Arm Left Infection Wound Postoperative Initial Hyperlipidemia Hypertension Essential Primary Weakness General Stroke Cerebrovascular Accident Personal History History Of Falling Weakness Leg Deficit Neurologic Retention Urinary Numbness Lower Extremity Weakness Leg Right Benign Prostatic Hyperplasia Hypertrophy With Obstruction Pneumonia Community Acquired Past Medical History: Diagnosis Date BenignProstatic Hyperplasia Localized Gastroesophageal Reflux Disease NOS Gout Hyperlipidemia Hypertension NOS Stroke (HCC) Past Surgical History: Procedure Laterality Date CYSTOLITHOPAXY N/A 07/01/2023 Procedure: CYSTOLITHOLAPAXY; Surgeon: Robe Cueva M.D.; Location: [facility] OR ENUCLEATION HOLMIUM LASER PROSTATE (HOLEP) < 70 GRAMS N/A 07/01/2023 Procedure: ENUCLEATION HOLMIUM LASER PROSTATE < 70 GRAMS (50 g); Surgeon: Robe Cueva M.D.; Location: [facility] OR TOTAL HIP ARTHROPLASTY Subjective Comments: Pt awake in chair and is agreeable to working with therapist. Notes continues to cough up sputum. Activity Orders: Nursing Activity Orders (From admission, onward) Start Ordered 11/20/232316 Activity/Position: Up to Chair, Up with Assistance; Other (comment); Ambulate as muchas possible considering previous activity level and physical functioning. Resume activity level following recovery from procedure and/or tests unless otherwise ... Until discontinued Question Answer Comment Activity Level: Up to Chair Activity Level: Up with Assistance Ambulation Goals: Other (comment) Ambulation goals comment: Ambulate as much as possible considering previous activity level and physical functioning. Resume activity level following recovery from procedure and/or tests unless otherwise directed. Up to chair goals: With meals Restrictions/Precautions: None Brace/Device: None 11/20/232318 Is patient at risk for falls? yes History of falls? Yes Precautions/Restrictions: Fall Precautions and Aspiration Precautions Weight Bearing Status: Full weight bearing Bed Alarm/Mastic: No bed alarm or winston required Invasive Lines/Drains: Intravenous line Oxygen Delivery: Room air Prior Level of Function: Level of independence: Pt lives with , he notes performing sponge baths at baseline, I with dressing, and ambulates with a cane Lives with: Spouse Receives help from: Family Driving: Independent Occupational Role: Retired Home Set Up: Type of home: House Home layout: one level home with basement (has chair lift) Home access: 4 stairs to enter with rails Bathroom set up: walk in shower, shower chair, grab bars in shower, and comfort height/tall toilet Available Equipment: cane and front wheeled walker OBJECTIVE Patient Presents: seated in the chair Pain Assessment: No pain describe at rest, attests to pain with coughing Adverse Response to Treatment: none Vitals monitored throughout session; within normal ranges. Current Level of Function: Cognition: Alert, Oriented x 4, Follows multi step commands Screen: Strength: WFL Balance: The Four Stage Balance Test was utilized to assess balance and screen for fall risk. Patient was instructed to perform with eyes open and without upper extremity support. Scoring is as follows: Romberg Stance unable to maintain position/immediately loses balance Modified Tandem Stance maintains position for 3 seconds Tandem Stance unable to maintain position/immediately loses balance Single Leg Stance unable to maintain position/immediately loses balance Not being able to maintain tandem stance for at least 10 seconds indicates increased fall risk. Perthis test, patient is at an increased risk of falling. Education provided to patient regarding results from testing and fall prevention strategies. Bed Mobility: Did not occur Transfers: Sit to stand: Supervision, Stand to sit: Supervision, Toilet: Supervision Devices used: Front wheeled walker Cuing provided: min cues for positioning Gait Assessment: Gait Training: Distance: 30 meters Assistance: Supervision Device: Front wheeled walker Quality: pt demonstrates a trunk lean to his R side, increased fwd trunk flexion, slow speed Cueing: Verbal, Tactile, Modeling by therapist, for safety awareness, positioning COG over JOY, proper body mechanics, proper posture, and breathing Gait training performed to demonstrate proper use of walker including proper positioning within walker, postural awareness, and step/stride length considerations. Pt also instructed on proper turns remembering to turn his walker first then himself. Stairs: Gait on Stairs : Did not occur Outcome Measures: AM-PAC AM-PAC Basic Mobility (V.2) How much help from another person do you currently need???If the patient hasn't done an activity recently, how much help from another person do you think he/she would needif he/she tried? 1. Turning from your back to your side while in a flat bed without using bedrails?: None 2. Moving from lying on your back to sitting on the side of a flat bed without using bedrails?: A Little 3. Moving to and from a bed to a chair (including a wheelchair)?: None 4. Standing up from a chair using your arms (e.g., wheelchair, or bedside chair)?: None 5. To walk in hospital room?: None 6. Climbing 3-5 steps with a railing?: A Little AM-PAC Basic Mobility (V.2) Raw Score: 22 AM-PAC Basic Mobility (V.2) Standardized Score: 47.4 According to scoring guidelines: Those going to home had an average score of 20.1 Those going home with home care had an average score of 17.9 Those going to SNF had an average score of 14 Those going to IRF had an average score of 13.6 Those going to a LTAC had an average score of 11.5 Interventions provided 11/21/2023: Evaluation completed. Education was provided regarding evaluative findings and potential risks and benefits of rehabilitation interventions. A collaborative effort was used to establish goals and plan of care, which was agreed upon by patient/caregiver. Patient Informed about the right to make decisions regarding their care. The treatment plan and discharge recommendations may be modified based upon response to treatment. Treatment also consisted of: instructed pt on use of incentive spirometer to promote airway clearance, he required cueing to inhale slowly. Patient Disposition at the End of Treatment: was left on the toilet at end of session with call light within reach. All needs met and questions answered. Patient/caregiver verbalized understanding to contact nursing staff for all needs including transfers and ambulation if appropriate. Contacted Primary service, Patient's nurse, mold worker, and Occupational therapist regarding discharge/safety recommendations, ongoing therapy needs after hospital discharge, patient's status during therapy session, and recommendations for mobility during hospital stay Assessment Discharge Recommendations: From a physical therapy standpoint, patient would benefit from discharging home with outpatient therapy. Barriers to Discharge Home: Current functional status, Fall risk Level of Care Needed - PT: Assistance with stairs, Assistance with bed mobility Equipment Recommended - PT: Front-wheeled walker, Single-point cane Clinical Impression: Mr. Daily is a 78 y.o. male who has been hospitalized 1 day(s) with an admitting diagnosis of: 1. Pneumonia Community Acquired [J18.9] Kaushik Daily is a 78 y.o. male with history of CVA, history of frequent falling, hypertension, hyperlipidemia, neurological deficit, urinary retention. Patient reports he has been having difficultywith breathing for about 10 days, associated with cough productive of greenish sputum. He reports he felt so weak on Saturday, his legs gave out and he fell. Denies hitting his head. Admitted with concerns for pneumonia. During today's PT evaluation pt was supervision with sit to stand transfers. He demonstrates significant weakness and is considered a falls risk per balance testing today. He requires use of a walkerand was educated on how to use one properly. Pt ambulated 30 meters with use of front WW and supervision, did require cueing to use walker appropriately. Prior to hospitalization patient was completing daily activities independently, using a cane for ambulation, and managing steps in/out of his home. Currently presents with impairments including impaired strength and impaired balance resulting in functional deficits including impaired gait, impairedtransfer skills, impaired balance, and impaired activity tolerance. Skilled physical therapy treatment during this hospitalization is medically necessary in order to provide graded activities to promote patients functional return, safety and quality of life with the established rehabilitation goals. Kaushik Daily has Good rehab potential to meet the expected outcomes in a reasonable period of time. Comorbid Conditions: Cerebrovascular accident, Cancer Personal Factors: History of falls, Needs assistive device Clinical Presentation: Stable Examination elements: 1-2 Clinical Decision Making: Low complexity clinical decision making Functional Goals and Timeframes: PT Goal #1: Feels perform bed mobility pr set up at home with modified independence to return home safely PT Goal #1 to be achieved by: 12/05/23 PT Goal #1 Status: Ongoing PT Goal #2: Patient will be able to perform transfers of sit to stand and stand to sit with least restrictive device and modified independence to return home safely PT Goal #2 to be achieved by: 12/05/23 PT Goal #2 Status: Achieved PT Goal #3: Patient will be able to ambulate 75 m with supervision and least restrictive assistive device to return home safely PT Goal #3 to be achieved by: 12/05/23 PT Goal #3 Status: Slowly progressing PT Goal #4: Patient will be able to ascend and descend 4 stairs with home rails per patient's home set up and supervision to return home safely PT Goal #4 to be achieved by: 12/05/23 PT Goal #4 Status: Ongoing Plan Physical Therapy Attestation Statement: Patient agrees with the plan of care and goals. Plan: Plan of care initiated PT Amount: 1 visit per day PT Frequency: 6 times per week PT Duration: Until goals are met or hospital discharge Plan for next session: progress mobility as able PT Plan Comments: Progress gait distance/quality, transfer training, lower extremity strengthening Treatment interventions may include: Treatment/Interventions: Therapeutic exercise, Therapeutic functional activity, Neuromuscular re-education, Gait training, Self-care/home management Time Spent with Patient Evaluations PT Eval - Low Complexity: 20 min Therapeutic Interventions Gait Training (min): 8 min Therapeutic Activity (min): 2 min Time Tracking Total Timed Units (min): 10 min Total Treatment Time (min): 30 min Jerrell Zeng P.T. [facility], Fifth Floor [address] [facility] [id number] Dept: [phone] documented in this encounter Nursing Notes * Jessica Garcia R.N. - 11/23/2023 12:31 PM CDT INPATIENT DISCHARGE SUMMARY Discharge Provider: No att. providers found Admission Date: 11/20/2023 Discharge Date: 11/23/2023 DISCHARGE DISPOSITION Home/Self Care CONDITION AT DISCHARGE controlled TREATMENTS None DEVICES/EQUIPMENT None PROFESSIONAL SKILLED SERVICES None MODE OF DISCHARGE Wheelchair TRANSPORTATION Private Vehicle ACCOMPANIED BY CHIEF WELLNESS OFFICER and Family: daughter All belongings sent home with patient. Pt has been A/O*3. VSS. Pt has been getting up w/1 walker. Pt has been eating adequately. Pt had a BM this morning, and has been urinating well. Pt continues tohave the flu, educated on importance of taking his medications and wearing a mask to prevent spreading it. Pt also educated on importance of Aerobika and IS to keep his lungs strong. * Danielle Mascorro R.N. - 11/23/2023 6:57 AM CDT Assumed care at 2300. INPATIENT SHIFT SUMMARY ORIENTATION: A&Ox3 SAFETY MEASURES: Bed Alarm and Chair Alarm ASSISTED MOBILITY: x1, Gait belt, and Walker VITALS: Vitals assessed and stable this shift INTAKE: Adequate for solids and Adequate for liquids OUTPUT: Patient has been urinating adequately. PAIN: Patient has not had any complaints of pain this shift. PRN MEDICATIONS UTILIZED THIS SHIFT: None DVT PROPHYLAXIS: Lovenox injections CHG/ARMSTRONG CARE NEEDS: None needed SHIFT EVENTS: No acute events this shift. Patient slept well through the night. UPCOMING PLAN OF CARE: Continue with IV Abx. Continue with current plan of care. * Jessica Garcia R.N. - 11/22/2023 4:30 PM CDT INPATIENT SHIFT SUMMARY ORIENTATION: A&Ox3 SAFETY MEASURES: Bed Alarm, Chair Alarm, and Q2 rounding ASSISTED MOBILITY: x1 and Walker VITALS: BP 122/78 (BP Location: Left arm;Upper, Patient Position: Sitting) Pulse 86 Temp 36.3 ??C (Temporal) Resp 17 Ht 177.8 cm Wt 100 kg SpO2 100% BMI 31.73 kg/m?? INTAKE: Adequate for solids and Adequate for liquids OUTPUT: Patient has been urinating adequately. Patient had a bowel movement today. PAIN: Patient has not had any complaints of pain this shift. PRN MEDICATIONS UTILIZED THIS SHIFT: None DVT PROPHYLAXIS: Lovenox, Plavix, and warfarin CHG/ARMSTRONG CARE NEEDS: None needed SHIFT EVENTS: No acute events this shift.Pt has been A/O*3. VSS. Pt continues to have some left sided weakness inlower extremity d/t previous stroke. Iv electrolyte replacement today-potassium and magnesium. Pt sputum sample was sent down which was positive for influenza. Droplet precautions in place. Pt has had a good appetite. Pt continues to be on alarms. Pt continues to do IS and Aerobika. Pt continues toget up w/1 walker to bathroom, chair, and bed today. Pt has been pleasant and call light appropriate. Upcoming plan of care: Continue antibiotics * Chana Terry R.N. - 11/22/2023 4:42 AM CDT INPATIENT SHIFT SUMMARY ORIENTATION: A&Ox3 SAFETY MEASURES: Bed Alarm and Chair Alarm; Q2 hr rounding ASSISTED MOBILITY: x1 and Walker VITALS: Vitals assessed and stable this shift INTAKE: Adequate for solids and Adequate for liquids OUTPUT: Patient has low urine output. PAIN: Patient has not had any complaints of pain this shift. PRN MEDICATIONS UTILIZED THIS SHIFT: None DVT PROPHYLAXIS: Lovenox injections, aspirin, and plavix CHG/ARMSTRONG CARE NEEDS: None needed SHIFT EVENTS: Patient has slept well through the night. Patient has sat up in the recliner a couple of times to change sleeping position. UPCOMING PLAN OF CARE: Patient is not medically stable to discharge at this time. Plan of care ongoing. * Harshad Frye R.N. - 11/21/2023 6:39 PM CDT Shift Goals: INPATIENT SHIFT SUMMARY ORIENTATION: A&Ox3 SAFETY MEASURES: Met by Routine ASSISTED MOBILITY: x1 VITALS: Slight lower temp, otherwise VSS. Was given warming blanket. INTAKE: Adequate for solids and Adequate for liquids OUTPUT: Patient has been urinating adequately. Patient had a bowel movement today. PAIN: Pain has been well controlled with PRN medications PRN MEDICATIONS UTILIZED THIS SHIFT: Tylenol DVT PROPHYLAXIS: Enoxaparin injection daily at HS CHG/ARMSTRONG CARE NEEDS: None needed SHIFT EVENTS: No acute events this shift. UPCOMING PLAN OF CARE: Patient stable and awaiting placement. * Leyda Lang R.N. - 11/21/2023 5:00 AM CDT Patient was admitted to [place] [address] at 2133 from [place] with Pneumonia. INPATIENT SHIFT SUMMARY ORIENTATION: A&Ox3 SAFETY MEASURES: Bed Alarm and Chair Alarm ASSISTED MOBILITY: x1, Cane, and Stand by assist VITALS: Vitals assessed and stable this shift INTAKE: Adequate for solids and Adequate for liquids Regular diet, 60 gram carbs. OUTPUT: Patient has been urinating adequately. Patient had a BM on 11/19 prior to coming here. Patient has used a urinal at the bedside. PAIN: Patient rated pain in his abdomen when he coughs at an 8/10. Provider ordered PRN Tylenol to try first. If that does not help, then stronger pain meds will need to be ordered. PRN MEDICATIONS UTILIZED THIS SHIFT: Robitussin given at 0017. Tylenol given at 0700 for abdominal pain when coughing. DVT PROPHYLAXIS: Lovenox injections and Plavix CHG/ARMSTRONG CARE NEEDS: None needed SHIFT EVENTS: Patient came from [place] at 2133. Admission questions have been completed. Photos have been taken of his coccyx wound in his LDA. UPCOMING PLAN OF CARE: PT and OT to evaluate patient. ECG 12-Lead ordered. Labs will be taken this AM. documented in this encounter Plan of Treatment Scheduled Referrals Name Type Priority Associated Diagnoses Order Schedule Transitional care post hospital clinic Outpatient Referral Routine 1 Occurrences starting 11/23/2023 until 02/19/2025 External referral physician (non-[facility]) Outpatient Referral Routine Pneumonia Community Acquired Influenza Ordered: 11/23/2023 documented as of this encounter Procedures Procedure Name Priority Date/Time Associated Diagnosis Comments CBC WITH DIFFERENTIAL, B Routine 11/23/2023 7:05 AM CDT MAGNESIUM, S Routine 11/23/2023 7:05 AM CDT BASIC METABOLIC PANEL, S/P Routine 11/23/2023 7:05 AM CDT BACTERIAL CULTURE, AEROBIC + SUSC, RESP Routine 11/22/2023 11:06 AM CDT GRAM STAIN Routine 11/22/2023 11:06 AM CDT PEP THERAPY Routine 11/22/2023 11:00 AM CDT PNEUMONIA PANEL, PCR Routine 11/22/2023 10:57 AM CDT PEP THERAPY Routine 11/22/2023 9:00 AM CDT CBC WITHOUT DIFFERENTIAL, B Routine 11/22/2023 8:08 AM CDT COMPREHENSIVE METABOLIC PANEL, S/P Routine 11/22/2023 8:08 AM CDT PEP THERAPY Routine 11/22/2023 7:01 AM CDT PEP THERAPY Routine 11/21/2023 9:00 PM CDT PEP THERAPY Routine 11/21/2023 8:01 PM CDT PEP THERAPY Routine 11/21/2023 8:01 PM CDT PEP THERAPY Routine 11/21/2023 8:01 PM CDT PEP THERAPY Routine 11/21/2023 8:01 PM CDT PEP THERAPY Routine 11/21/2023 8:01 PM CDT PEP THERAPY Routine 11/21/2023 8:01 PM CDT PEP THERAPY Routine 11/21/2023 8:01 PM CDT PEP THERAPY Routine 11/21/2023 8:01 PM CDT PEP THERAPY Routine 11/21/2023 8:01 PM CDT HBS ANTIGEN SCRN, S Routine 11/21/2023 8 :58 AM CDT MORPHOLOGY EVALUATION Routine 11/21/2023 8:58 AM CDT HCV AB W/REFLEX TO HCV PCR, S Routine 11/21/2023 8:58 AM CDT NT-PRO B-TYPE NATRIURETIC PEPTIDE (BNP), S Routine 11/21/2023 8:58 AM CDT CBC WITH DIFFERENTIAL, B Routine 11/21/2023 8:58 AM CDT MAGNESIUM, S Routine 11/21/2023 8:58 AM CDT COMPREHENSIVE METABOLIC PANEL, S/P Routine 11/21/2023 8:58 AM CDT ECG Routine 11/21/2023 8:42 AM CDT documented in this encounter Results * Magnesium (11/23/2023 7:05 AM CDT) Magnesium, P 1.9 1.7 - 2.3 mg/dL 11/23/2023 8:01 AM CDT MKTO Blood (Blood, Venous) 11/23/2023 7:05 AM CDT 11/23/2023 7:17 AM CDT Gonzalo Pichardo M.D. LAB BLOOD ADD-ON [facility] [address] [place] [address], [facility] MKTO [facility] [place] [address] [place] [phone] * (ABNORMAL) Basic Metabolic Panel (11/23/2023 7:05 AM CDT) Potassium, P 3.9 3.6 - 5.2 mmol/L 11/23/2023 8:01 AM CDT MKTO Sodium, P 129(L) 135 - 145 mmol/L 11/23/2023 8:01 AM CDT [facility] Chloride, P 95(L) 98 - 107 mmol/L 11/23/2023 8:01 AM CDT [facility] Bicarbonate, P 22 22 - 29 mmol/L 11/23/2023 8:01 AM CDT [facility] Anion Gap, P 12 7 - 15 11/23/2023 8:01 AM CDT [facility] BUN (Blood Urea Nitrogen), P 12 8 - 24 mg/dL 11/23/2023 8:01 AM CDT [facility] Creatinine 0.81 0.74 - 1.35 mg/dL 11/23/2023 8:01 AM CDT [facility]TO Estimated GFR (eGFR) 89 >=60 mL/min/BSA 11/23/2023 8:01 AM CDT MKTO Comment: Estimated GFR calculated using the 2020 CKD_EPI creatinine equation. Calcium, Total, P 8.3(L) 8.8 - 10.2 mg/dL 11/23/2023 8:01 AM CDT MKTO Glucose, P 111 70 - 140 mg/dL 11/23/2023 8:01 AM CDT [facility]TO Blood (Blood, Venous) 11/23/2023 7:05 AM CDT 11/23/2023 7:17 AM CDT Gonzalo Pichardo M.D. LAB BLOOD ADD-ON [facility] [address] [place] [address], [facility] MKTO [facility] [place] [address] [place] [address] * (ABNORMAL) CBC with Differential, Blood (11/23/2023 7:05 AM CDT) Hemoglobin 10.2(L) 13.2 - 16.6 g/dL 11/23/2023 7:20 AM CDT MKTO Hematocrit 30.4(L) 38.3 - 48.6 % 11/23/2023 7:20 AM CDT [facility] Erythrocytes 3.66(L) 4.35 - 5.65 x10(12)/L 11/23/2023 7:20 AM CDT [facility] MCV 83.1 78.2 - 97.9 fL 11/23/2023 7:20 AM CDT MKTO RBC Distrib Width 14.9(H) 11.8 - 14.5 % 11/23/2023 7:20 AM CDT [facility] Platelet Count 325(H) 135 - 317 x10(9)/L 11/23/2023 7:20 AM CDT [facility]TO Leukocytes 10.2(H) 3.4 - 9.6 x10(9)/L 11/23/2023 7:20 AM CDT [facility]TO Neutrophils 8.56(H) 1.56 - 6.45 x10(9)/L 11/23/2023 7:20 AM CDT [facility] Lymphocytes 0.67(L) 0.95 - 3.07 x10(9)/L 11/23/2023 7:20 AM CDT [facility] Monocytes 0.73 0.26 - 0.81 x10(9)/L 11/23/2023 7:20 AM CDT [facility]TO Eosinophils 0.20 0.03 - 0.48 x10(9)/L 11/23/2023 7:20 AM CDT MKTO Basophils 0.08 0.01 - 0.08 x10(9)/L 11/23/2023 7:20 AM CDT MKTO Blood (Blood, Venous) 11/23/2023 7:05 AM CDT 11/23/2023 7:17 AM CDT Gonzalo Pichardo M.D. LAB BLOOD ADD-ON Performing Organization Address City/[facility] Co de Phone Number [facility] [address] [place] [address], [address] [phone] * Gram Stain (11/22/2023 11:06 AM CDT) Gram Stain Mixed microbiota 11/22/2023 11:28 AM CDT [facility] Sputum (Sputum) 11/22/2023 1 1:06 AM CDT 11/22/2023 11:06 AM CDT Comment:Specimen Source Site : Sputum Gonzalo Pichardo M.D. LAB MICROBIOLOGY - G ENERAL ORDERABLES Performing Organization Address [facility] Co de Phone Number [facility] [address] [place] [address], [address] [phone] * Bacterial Culture, Aerobic + Susceptibility, Respiratory (11/22/2023 11:06 AM CDT) Bacterial Culture, Aerobic, Resp Upper respiratory/or al microbiota 11/24/2023 9:15 AM CDT [facility] Sputum (Sputum) 11/22/2023 1 1:06 AM CDT 11/22/2023 11:06 AM CDT Comment:Specimen Source Site : Sputum Gonzalo Pichardo M.D. LAB MICROBIOLOGY - G ENERAL ORDERABLES Performing Organization Address City/[facility] Co de Phone Number [facility] [address] [place] [address], [address] [id number] * (ABNORMAL) Pneumonia Panel, PCR (11/22/2023 10:57 AM CDT) Specimen Source SPUTUM 12:56 PM CDT MKTO Acinetobacter calcoaceticus-brandie annii complex Undetected Undetected copies/mL 11/22/2023 12:56 PM CDT MKTO Enterobacter cloacae complex Undetected Undetected copies/mL 11/22/2023 12:56 PM CDT MKTO Escherichia coli Undetected Undetected copies/mL 11/22/2023 12:56 PM CDT MKTO Haemophilus influenzae Detected >=10(7)(A) Undetected copies/mL 11/22/2023 12:56 PM CDT MKTO Comment: H. influenzae is a component of usual respiratory microbiota that may cause disease in certain hosts. Evidence of clinically significant infection should drive antibiotic need. Semi-quantitative organism quantities reported by this assay, which can include: 10(4), 10(5), 10(6), or >=10(7) copies/mL, are not equivalent to CFU/mL and do not consistently correlate with quantities of bacteria compared to CFU/mL. Klebsiella aerogenes Undetected Undetected copies/mL 11/22/2023 12:56 PM CDT MKTO Klebsiella oxytoca Undetected Undetected copies/mL 11/22/2023 12:56 PM CDT MKTO Klebsiella pneumoniae complex Undetected Undetected copies/mL 11/22/2023 12:56 PM CDT MKTO Moraxella catarrhalis Undetected Undetected copies/mL 11/22/2023 12:56 PM CDT MKTO Proteus species Undetected Undetected copies/mL 11/22/2023 12:56 PM CDT MKTO Pseudomonas aeruginosa Undetected Undetected copies/mL 11/22/2023 12:56 PM CDT MKTO Serratia marcescens Undetected Undetected copies/mL 11/22/2023 12:56 PM CDT MKTO Staphylococcus aureus complex Undetected Undetected copies/mL 11/22/2023 12:56 PM CDT MKTO Streptococcus agalactiae Undetected Undetected copies/mL 11/22/2023 12:56 PM CDT MKTO Streptococcus pneumoniae Undetected Undetected copies/mL 11/22/2023 12:56 PM CDT MKTO Streptococcus pyogenes Undetected Undetected copies/mL 11/22/2023 12:56 PM CDT MKTO Chlamydia pneumoniae Undetected Undetected 11/22/2023 12:56 PM CDT MKTO Legionella pneumophila Undetected Undetected 11/22/2023 12:56 PM CDT MKTO Mycoplasma pneumoniae Undetected Undetected 11/22/2023 12:56 PM CDT MKTO Adenovirus Undetected Undetected 11/22/2023 12:56 PM CDT MKTO Coronavirus Undetected Undetected 11/22/2023 12:56 PM CDT MKTO Human Metapneumovirus Undetected Undetected 11/22/2023 12:56 PM CDT MKTO Human Rhinovirus/Enterov irus Undetected Undetected 11/22/2023 12:56 PM CDT MKTO Influenza A Detected(A) Undetected 11/22/2023 12:56 PM CDT MKTO Influenza B Undetected Undetected 11/22/2023 12:56 PM CDT MKTO Parainfluenza Undetected Undetected 11/22/2023 12:56 PM CDT MKTO Respiratory Syncytial Virus Undetected Undetected 11/22/2023 12:56 PM CDT MKTO Comment: ----ADDITIONAL INFORMATION---- This assay is performed using the FDA-cleared FilmArray Pneumonia Panel (PN) ([employer] Any initial empiric treatment guidance provided in this report by Infectious Diseases was based solely on the results shown. Patient management should be individualized, based on clinical interpretation of the result in this patient, alongside other considerations, including, but not limited to, renal and liver function, allergies, drug interactions, and other infections. This assay is not predicted to detect SARS-coronavirus (CoV), MERS-CoV or SARS-CoV-2. Sputum (Sputum) 11/22/2023 1 0:57 AM CDT 11/22/2023 10:57 AM CDT Gonzalo Pichardo M.D. LAB MICROBIOLOGY - G ENERAL ORDERABLES [facility] [place] [address], [facility] MKTO [address] [address] * (ABNORMAL) Comprehensive Metabolic Panel (11/22/2023 8:08 AM CDT) Pathologist [facility] Potassium, P 3.5(L) 3.6 - 5.2 mmol/L 11/22/2023 8:45 AM CDT MKTO Sodium, P 130(L) 135 - 145 mmol/L 11/22/2023 8:45 AM CDT MKTO Chloride, P 92(L) 98 - 107 mmol/L 11/22/2023 8:45 AM CDT MKTO Bicarbonate, P 24 22 - 29 mmol/L 11/22/2023 8:45 AM CDT MKTO Anion Gap, P 14 7 - 15 11/22/2023 8:45 AM CDT MKTO BUN (Blood Urea Nitrogen), P 14 8 - 24 mg/dL 11/22/2023 8:45 AM CDT MKTO Creatinine 0.86 0.74 - 1.35 mg/dL 11/22/2023 8:45 AM CDT MKTO Estimated GFR (eGFR) 88 >=60 mL/min/BS A 11/22/2023 8:45 AM CDT MKTO Comment: Estimated GFR calculated using the 2020 CKD_EPI creatinine equation. Calcium, Total, P 8.7(L) 8.8 - 10.2 mg/dL 11/22/2023 8:45 AM CDT MKTO Glucose, P 122 70 - 140 mg/dL 11/22/2023 8:45 AM CDT MKTO Protein, Total, P 7.2 6.3 - 7.9 g/dL 11/22/2023 8:45 AM CDT MKTO Albumin, P 3.2(L) 3.5 - 5.0 g/dL 11/22/2023 8:45 AM CDT MKTO Aspartate Aminotransferase (AST), P 84(H) 8 - 48 U/L 11/22/2023 8:45 AM CDT MKTO Alkaline Phosphatase, P 120 40 - 129 U/L 11/22/2023 8:45 AM CDT MKTO Alanine Aminotransferase (ALT), P 91(H) 7 - 55 U/L 11/22/2023 8:45 AM CDT MKTO Bilirubin, Total, P 0.4 0.0 - 1.2 mg/dL 11/22/2023 8:45 AM CDT MKTO Blood (Blood, Venous) 11/22/2023 8:08 AM CDT 11/22/2023 8:16 AM CDT Gonzalo Pichardo M.D. LAB BLOOD ADD-ON [facility] [address] [place] [address], [facility] MKTO [facility] [place] [address] [place] [id number] * (ABNORMAL) CBC without Differential (11/22/2023 8:08 AM CDT) Hemoglobin 11.2(L) 13.2 - 16.6 g/dL 11/22/2023 8:22 AM CDT MKTO Hematocrit 34.0(L) 38.3 - 48.6 % 11/22/2023 8:22 AM CDT MKTO Erythrocytes 4.12(L) 4.35 - 5.65 x10(12)/L 11/22/2023 8:22 AM CDT MKTO MCV 82.5 78.2 - 97.9 fL 11/22/2023 8:22 AM CDT MKTO RBC Distrib Width 14.7(H) 11.8 - 14.5 % 11/22/2023 8:22 AM CDT MKTO Platelet Count 381(H) 135 - 317 x10(9)/L 11/22/2023 8:22 AM CDT MKTO Leukocytes 11.4(H) 3.4 - 9.6 x10(9)/L 11/22/2023 8:22 AM CDT MKTO Blood (Blood, Venous) 11/22/2023 8:08 AM CDT 11/22/2023 8:16 AM CDT Gonzalo Pichardo M.D. LAB BLOOD ADD-ON [facility] [address] [place] [address], [address] [address] * (ABNORMAL) Morphology Evaluation (11/21/2023 8:58 AM CDT) RBC Morphology See Specific Findings 11/21/2023 10:12 AM CDT MKTO PLT Morphology See Specific Findings 11/21/2023 10:12 AM CDT MKTO PLT Estimate Increased(A ) Adequate 11/21/2023 10:12 AM CDT MKTO Anisocytosis Slight(A) 11/21/2023 10:12 AM CDT MKTO Reactive/Atypical Lymphocytes Present(A) Not Seen 11/21/2023 10:12 AM CDT MKTO Dacrocytes Slight(A) Not Seen 11/21/2023 10:12 AM CDT MKTO Echinocytes Marked(A) Not Seen 11/21/2023 10:12 AM CDT MKTO Elliptocytes Slight(A) Not Seen 11/21/2023 10:12 AM CDT MKTO Large PLT Present(A) Not Seen 11/21/2023 10:12 AM CDT MKTO Poikilocytosis Slight(A) Not Seen 11/21/2023 10:12 AM CDT MKTO Blood 11/21/2023 8:58 AM CDT 11/21/2023 9:21 AM CDT Thad Carrington M.D. LAB BLO OD ADD-ON [facility] [address] [place] [address] [place] [address] * HCV Ab w/Reflex to HCV PCR, Serum (11/21/2023 8:58 AM CDT) HCV Ab, S Negative Negative 11/21/2023 10:39 AM CDT MKTO Blood (Blood, Venous) 11/21/2023 8:58 AM CDT 11/21/2023 9:23 AM CDT Narrative [facility] - 11/21/2023 10:39 AM CDT Specimen Information: Specimen ID: [id number] Specimen Type: Blood Specimen Collection Start Date: 11/21/2023 ??8:58 AM Specimen Received Date: 11/21/2023 ??9:23 AM Specimen ID: [id number] Specimen Type: Blood Specimen Collection Start Date: 11/21/2023 ??8:58 AM Specimen Received Date: 11/21/2023 ??9:23 AM Gonzalo Pichardo M.D. LAB MICROBIOLOGY - B LOOD ORDERABLES Performing Organization Address City/[facility]/ZIP Co de Phone Number [facility] [address] [place] [address], [place] [address] * HBs Antigen Scrn, Serum (11/21/2023 8:58 AM CDT) HBs Antigen Scrn, S Nonreactive Nonreactive 11/21/2023 10:39 AM CDT MKTO Blood (Blood, Venous) 11/21/2023 8:58 AM CDT 11/21/2023 9:23 AM CDT Gonzalo Pichardo M.D. LAB MICROBIOLOGY - B LOOD ORDERABLES Performing Organization Address City/[facility] Co de Phone Number [facility] [address] [place] [address], [place] [address] * (ABNORMAL) Comprehensive Metabolic Panel (11/21/2023 8:58 AM CDT) Potassium, P 3.0(L) 3.6 - 5.2 mmol/L 11/21/2023 9:58 AM CDT MKTO Sodium, P 128(L) 135 - 145 mmol/L 11/21/2023 9:58 AM CDT MKTO Chloride, P 91(L) 98 - 107 mmol/L 11/21/2023 9:58 AM CDT MKTO Bicarbonate, P 24 22 - 29 mmol/L 11/21/2023 9:58 AM CDT MKTO Anion Gap, P 13 7 - 15 11/21/2023 9:58 AM CDT MKTO BUN (Blood Urea Nitrogen), P 16 8 - 24 mg/dL 11/21/2023 9:58 AM CDT MKTO Creatinine 0.94 0.74 - 1.35 mg/dL 11/21/2023 9:58 AM CDT MKTO Estimated GFR (eGFR) 82 >=60 mL/min/BS A 11/21/2023 9:58 AM CDT MKTO Comment: Estimated GFR calculated using the 2020 CKD_EPI creatinine equation. Calcium, Total, P 8.6(L) 8.8 - 10.2 mg/dL 11/21/2023 9:58 AM CDT MKTO Glucose, P 143(H) 70 - 140 mg/dL 11/21/2023 9:58 AM CDT MKTO Protein, Total, P 6.9 6.3 - 7.9 g/dL 11/21/2023 9:58 AM CDT MKTO Albumin, P 3.2(L) 3.5 - 5.0 g/dL 11/21/2023 9:58 AM CDT MKTO Aspartate Aminotransferase (AST), P 101(H) 8 - 48 U/L 11/21/2023 9:58 AM CDT MKTO Alkaline Phosphatase, P 123 40 - 129 U/L 11/21/2023 9:58 AM CDT MKTO Alanine Aminotransferase (ALT), P 96(H) 7 - 55 U/L 11/21/2023 9:58 AM CDT MKTO Bilirubin, Total, P 0.6 0.0 - 1.2 mg/dL 11/21/2023 9:58 AM CDT MKTO Blood (Blood, Venous) 11/21/2023 8:58 AM CDT 11/21/2023 9:23 AM CDT Thad Carrington M.D. LAB BLO OD ADD-ON [facility] [place] [address], [facility] MKTO [place] [address] * NT-Pro B-Type Natriuretic Peptide (BNP) (11/21/2023 8:58 AM CDT) NT-Pro BNP 460 <=540 pg/mL 11/21/2023 9:58 AM CDT MKTO Comment: NT-proBNP values less than 300 pg/mL have a 99% negative predictive value for excluding acute congestive heart failure. A cutoff of 1200 pg/mL for patients with an eGFR<60 yields a diagnostic sensitivity and specificity of 89% and 72% for acute congestive heart failure. A diagnostic NT-proBNP cutoff of 1800 pg/mL has been suggested in adults over 75 years of age in the absence of renal failure. Blood (Blood, Venous) 11/21/2023 8:58 AM CDT 11/21/2023 9:23 AM CDT Thad Carrington M.D. LAB BLO OD ADD-ON Performing Organization Address City/[facility]/ZIP Co de Phone Number [facility] [address] [place] [address], [place] [address] * Magnesium (11/21/2023 8:58 AM CDT) Magnesium, P 1.7 1.7 - 2.3 mg/dL 11/21/2023 9:58 AM CDT [facility] Blood (Blood, Venous) 11/21/2023 8:58 AM CDT 11/21/2023 9:23 AM CDT Thad Carrington M.D. LAB BLO OD ADD-ON Performing Organization Address City/[facility]/ZIP Co de Phone Number [facility] [address] [place] [address], [place] [address] * (ABNORMAL) CBC with Differential, Blood (11/21/2023 8:58 AM CDT) Hemoglobin 11.1(L) 13.2 - 16.6 g/dL 11/21/2023 9:33 AM CDT MKTO Hematocrit 33.4(L) 38.3 - 48.6 % 11/21/2023 9:33 AM CDT MKTO Erythrocytes 3.98(L) 4.35 - 5.65 x10(12)/L 11/21/2023 9:33 AM CDT MKTO MCV 83.9 78.2 - 97.9 fL 11/21/2023 9:33 AM CDT MKTO RBC Distrib Width 14.8(H) 11.8 - 14.5 % 11/21/2023 9:33 AM CDT MKTO Platelet Count 339(H) 135 - 317 x10(9)/L 11/21/2023 9:33 AM CDT MKTO Leukocytes 10.4(H) 3.4 - 9.6 x10(9)/L 11/21/2023 9:33 AM CDT MKTO Neutrophils 8.82(H) 1.56 - 6.45 x10(9)/L 11/21/2023 10:11 AM CDT MKTO Lymphocytes 0.70(L) 0.95 - 3.07 x10(9)/L 11/21/2023 10:11 AM CDT MKTO Monocytes 0.62 0.26 - 0.81 x10(9)/L 11/21/2023 10:11 AM CDT MKTO Eosinophils 0.15 0.03 - 0.48 x10(9)/L 11/21/2023 10:11 AM CDT MKTO Basophils 0.08 0.01 - 0.08 x10(9)/L 11/21/2023 10:11 AM CDT MKTO Blood (Blood, Venous) 11/21/2023 8:58 AM CDT 11/21/2023 9:21 AM CDT Thad Carrington M.D. LAB BLO OD ADD-ON [facility] [address] [place] [address], [facility] MKTO [place] [address] * ECG 12 Lead (11/21/2023 8:42 AM CDT) Ventricular Rate ECG/Min 83 BPM MUSE OK Interval 184 ms MUSE QRSD Interval 92 ms MUSE QT Interval 402 ms MUSE QTC Interval 472 ms MUSE P Anderson 8 degrees MUSE R Anderson -18 degrees MUSE T Wave Anderson 7 degrees MUSE 11/21/2023 8:42 AM CDT 11/21/2023 8:45 AM CDT Impressions MUSE - 11/21/2023 8:45 AM CDT Sinus rhythm Premature atrial complexes Nonspecific T wave abnormality Prolonged QT When compared with ECG of 20-Nov-2023 17:26, QT has lengthened Reviewed by JOSE Cheng Narrative Procedure Note Jelani Tabor M.D., Ph.D. - 11/21/2023 IMPRESSION: Sinus rhythm Premature atrial complexes Nonspecific T wave abnormality Prolonged QT When compared with ECG of 20-Nov-2023 17:26, QT has lengthened Reviewed by JOSE Cheng Thad Carrington M.D. ECG ORD ERABLES MUSE NA documented in this encounter Visit Diagnoses Diagnosis Pneumonia Community Acquired- Primary Pneumonia Community Acquired [J18.9] Influenza documented in this encounter Admitting Diagnoses Diagnosis Pneumonia Community Acquired documented in this encounter Administered Medications Inactive Administered Medications - up to 3 most recent administrations Medication Order MAR Action Action Date Dose Rate Site acetaminophen tablet 1,000 mg (TylenoL) 1,000 mg, oral, Every 6 hours PRN, pain, Starting on Darline 11/21/23 at 1424 Given 11/21/2023 2:44 PM CDT 1,000 mg acetaminophen tablet 650 mg (TylenoL) 650 mg, oral, One-Time, mild pain or score 1-3 of 10, headaches, fever, Starting on Darline 11/21/23 at 0632, For 1 dose Given 11/21/2023 6:46 AM CDT [address] tablet 81 mg 81 mg, oral, Daily, First dose on Darline 11/21/23 at 0900, Swallow whole. Do NOT crush, chew, or split tablet. Given 11/23/2023 8:19 AM CDT 81 mg Given 11/22/2023 8:09 AM CDT 81 mg Given 11/21/2023 8:09 AM CDT 81 mg atorvastatin tablet 40 mg (Lipitor) 40 mg, oral, Daily at bedtime, First dose on Sat11/20/23 at 2330 Given 11/22/2023 9:01 PM CDT 40 mg Given 11/21/2023 8:27 PM CDT 40 mg Given 11/21/2023 12:17 AM CDT 40 mg azithromycin tablet 500 mg (Zithromax) 500 mg, oral, Daily at bedtime, First dose on Sat11/21/23 at 2100, For 2 doses, Drug Monitoring Program: Pharmacist to adjust medication dosing based on indication and drug clearance factors., Indications: Respiratory tract infection, community acquired Given 11/22/2023 9:01 PM CDT 500 mg Given 11/21/2023 8:27 PM CDT 500 mg cefdinir capsule 300 mg (Omnicef) 300 mg, oral, 2 times daily before morning and evening meals, First dose on Sat11/23/23 at 0845, For 4 doses, Administer 2 hours before or 6 hours after taking magnesium, aluminum (antacids, laxatives) or calcium and iron supplements (multivitamins); may be taken with calcium or iron if given with food., Drug Monitoring Program: Pharmacist to adjust medication dosing based on indication and drug clearance factors., Indications: Respiratory tract infection, community acquired Given 11/23/2023 9:33 AM CDT 300 mg cefTRIAXone injection 2 g (Rocephin) 2 g, intravenous, Daily at bedtime, First dose on Sat11/21/23 at 2100, For 4 doses, If needed, reconstitute vial per package insert instructions. See IVAG for administration guidelines., Drug Monitoring Program: Pharmacist to adjust medication dosing based on indication and drug clearance factors., Indications: Respiratory tract infection, community acquired Given 11/22/2023 9:02 PM CDT 2 g Given 11/21/2023 8:41 PM CDT 2 g clopidogreL tablet 75 mg (Plavix) 75 mg, oral, Daily, First dose on Darline 11/21/23 at 0900 Given 11/23/2023 8:19 AM CDT 75 mg Given 11/22/2023 8:09 AM CDT 75 mg Given 11/21/2023 8:09 AM CDT 75 mg enoxaparin injection 40 mg (Lovenox) 40 mg, subcutaneous, Daily at bedtime, First dose on Sat11/20/23 at 2345 Given 11/22/2023 9:02 PM CDT 40 mg Right Upper Arm (Owen k) Given 11/21/2023 8:26 PM CDT 40 mg Le ft Upper Arm (Back) Given 11/21/2023 12:17 AM CDT 40 mg L eft Upper Arm (Back) guaiFENesin liquid 200 mg (Robitussin) 200 mg, oral, Every 4 hours PRN, cough, congestion, Starting on Sat11/20/23 at 2331, For 4 doses Given 11/21/2023 8:26 PM CDT 200 mg Given 11/21/2023 12:17 AM CDT 200 mg magnesium sulfate in water IVPB 2 g 2 g, intravenous, at 25 mL/hr, Administer over 120 Minutes, Once, On Sat11/22/23 at 0730, For 1 dose New Bag 11/22/2023 8:51 AM CDT 2 g 25 mL/hr metoprolol succinate 24 hr tablet 200 mg (Toprol XL) 200 mg, oral, Daily, First dose on Sat11/21/23 at 0900, Do NOT crush or chew. Tablet may be split on score if needed. Given 11/23/2023 8:19 AM CDT 200 mg Given 11/22/2023 8:09 AM CDT 200 mg Given 11/21/2023 8:09 AM CDT 200 mg oseltamivir capsule 75 mg (Tamiflu) 75 mg, oral, 2 times daily, First dose on Sat11/22/23 at 1345, For 5 days, Drug Monitoring Program: Pharmacist to adjust medication dosing based on indication and drug clearance factors., Indications: Influenza Given 11/23/2023 8:19 AM CDT 75 mg Given 11/22/2023 9:01 PM CDT 75 mg Given 11/22/2023 2:19 PM CDT [address] tablet 40 mg (Protonix) 40 mg, oral, Daily before morning meal, First dose on Sat11/21/23 at 0700, pantoprazole 40 mg oral daily was interchanged for omeprazole 20 or 40 mg oral daily Swallow whole. Do NOT crush, chew, or split tablet. Given 11/23/2023 6:39 AM CDT 40 mg Given 11/22/2023 6:10 AM CDT 40 mg Given 11/21/2023 6:45 AM CDT 40 mg potassium chloride ER tablet 40 mEq 40 mEq, oral, 2 times daily with meals, First dose on Sat11/22/23 at 0800, For 2 doses, Swallow whole. Do NOT crush, chew, or split tablet. Given 11/22/2023 4:01 PM CDT 40 mEq Given 11/22/2023 8:50 AM CDT 40 mEq documented in this encounter Active and Recently Administered Medications Times are shown in CDT. Scheduled Medication Order 11/21/2023 11/22/2023 11/23/[address] tablet 81 mg 81 mg, oral, Daily, First dose on Sat11/21/23 at 0900, Swallow whole. Do NOT crush, chew, or split tablet. 08 (Given - Provider: Amy Sauer R.N.) 08 (Given - Provider: Jessica Garcia R.N.) 08 (Given - Provider: Jessica Garcia R.N.) atorvastatin tablet 40 mg (Lipitor) 40 mg, oral, Daily at bedtime, First dose on Sat11/20/23 at 2330 0017 (Given - Provider: Leyda Lang R.N.)2026 (Given - Provider: Amina Flores R.N.) 2100 (Given - Provider: Cynthia Cowart R.N.) azithromycin tablet 500 mg (Zithromax) (COMPLETED) 500 mg, oral, Daily at bedtime, First dose on Sat11/21/23 at 2100, For 2 doses, Drug Monitoring Program: Pharmacist to adjust medication dosing based on indication and drug clearance factors., Indications: Respiratory tract infection, community acquired 2026 (Given - Provider: Amina Flores R.N.) 2100 (Given - Provider: Cynthia Cowart R.N.) cefdinir capsule 300 mg (Omnicef) 300 mg, oral, 2 times daily before morning and evening meals, First dose on Sat11/23/23 at 0845, For 4 doses, Administer 2 hours before or 6 hours after taking magnesium, aluminum (antacids, laxatives) or calcium and iron supplements (multivitamins); may be taken with calcium or iron if given with food., Drug Monitoring Program: Pharmacist to adjust medication dosing based on indication and drug clearance factors., Indications: Respiratory tract infection, community acquired 932 (Given - Provider: Jessica Garcia R.N.) cefTRIAXone injection 2 g (Rocephin) (CANCELED) 2 g, intravenous, Daily at bedtime, First dose on Sat11/21/23 at 2100, For 4 doses, If needed, reconstitute vial per package insert instructions. See IVAG for administration guidelines., Drug Monitoring Program: Pharmacist to adjust medication dosing based on indication and drug clearance factors., Indications: Respiratory tract infection, community acquired 2040 (Given - Provider: Amina Flores R.N.) 2101 (Given - Provider: Cynthia Cowart R.N.) clopidogreL tablet 75 mg (Plavix) 75 mg, oral, Daily, First dose on Sat11/21/23 at 0900 0809 (Given - Provider: Amy Sauer R.N.) 08 (Given - Provider: Jessica Garcia R.N.) 08 (Given - Provider: Jessica Garcia R.N.) enoxaparin injection 40 mg (Lovenox) 40 mg, subcutaneous, Daily at bedtime, First dose on Sat11/20/23 at 2345 0017 (Given - Provider: Leyda Lang R.N.)2025 (Given - Provider: Amina Flores R.N.) 2101 (Given - Provider: Cynthia Cowart R.N.) magnesium sulfate in water IVPB 2 g (COMPLETED) 2 g, intravenous, at 25 mL/hr, Administer over 120 Minutes, Once, On Sat11/22/23 at 0730, For 1 dose 0851 (New Bag - Provider: Jessica Garcia R.N.) metoprolol succinate 24 hr tablet 200 mg (Toprol XL) 200 mg, oral, Daily, First dose on Sat11/21/23 at 0900, Do NOT crush or chew. Tablet may be split on score if needed. 0809 (Given - Provider: Amy Sauer R.N.) 0809 (Given - Provider: Jessica Garcia R.N.) 0819 (Given - Provider: Jessica Garcia R.N.) oseltamivir capsule 75 mg (Tamiflu) 75 mg, oral, 2 times daily, First dose on Sat11/22/23 at 1345, For 5 days, Drug Monitoring Program: Pharmacist to adjust medication dosing based on indication and drug clearance factors., Indications: Influenza 1419 (Given - Provider: Jessica Garcia R.N.)2101 (Given - Provider: Cynthia Cowart R.N.) 0819 (Given - Provider: Jessica Garcia R.N.) pantoprazole DR tablet 40 mg (Protonix) 40 mg, oral, Daily before morning meal, First dose on Sat11/21/23 at 0700, pantoprazole 40 mg oral daily was interchanged for omeprazole 20 or 40 mg oral daily Swallow whole. Do NOT crush, chew, or split tablet. 0645 (Given - Provider: Leyda Lang R.N.) 0610 (Given - Provider: Chana Terry R.N.) 0639 (Given - Provider: Danielle Mascorro R.N.) potassium chloride ER tablet 40 mEq (COMPLETED) 40 mEq, oral, 2 times daily with meals, First dose on Sat11/22/23 at 0800, For 2 doses, Swallow whole. Do NOT crush, chew, or split tablet. 0850 (Given - Provider: Jessica Garcia R.N.)1601 (Given - Provider: Jessica Garcia R.N.) triamterene-hydroCHLOROth iazide 37.5-25 mg per capsule 1 capsule (Dyazide) 1 capsule, oral, Every morning, First dose on Sat11/21/23 at 0900, On hold since Sat11/21/2023 at 0758 until manually unheld 0758 (Held by provider - Provider: Gonzalo Pichardo M.D. - Comment: hyponatremia)0900 (Not Given - Provider: Amy Sauer R.N. - Reason: See Provider Order) 0900 (Not Given - Provider: Jessica Garcia R.N. - Reason: See Provider Order) 0900 (Not Given - Provider: Jessica Garcia R.N. - Reason: See Provider Order)1432 (Unheld by provider - Provider: Discharge Provider, Automatic) PRN Medication Order 11/21/2023 11/22/2023 11/23/2023 acetaminophen tablet 1,000 mg (TylenoL) 1,000 mg, oral, Every 6 hours PRN, pain, Starting on Darline 11/21/23 at 1424 1444 (Given - Provider: Harshad Denton R.N.) acetaminophen tablet 650 mg (TylenoL) (COMPLETED) 650 mg, oral, One-Time, mild pain or score 1-3 of 10, headaches, fever, Starting on Darline 11/21/23 at 0632, For 1 dose 0646 (Given - Provider: Leyda Lang R.N. - Comment: Per provider- Try Tylenol first for pain) guaiFENesin liquid 200 mg (Robitussin) 200 mg, oral, Every 4 hours PRN, cough, congestion, Starting on 11/20/23 at 2331, For 4 doses 0017 (Given - Provider: Leyda Lang R.Jennifer.)2025 (Given - Provider: Amina Flores R.N.) hydrOXYzine tablet 25 mg (Atarax) 25 mg, oral, Bedtime PRN, allergies, Starting on 11/20/23 at 2315 documented in this encounter Additional Health Concerns Infection Onset Date Last Indicated Resolved Time Influenza 11/22/2023 11/22/2023 11/29/2023 5:57 AM CDT documented as of this encounter Care Teams Systems Checkout Mechanic Relationship Specialty Start Date End Date Elsewhere, Pcp PCP - General Internal Medicine 02/20/23 documented as of this encounter
--- OUTSIDE RECORDS SUMMARY | 2023-12-09 10:54 | XMS_ITS | Referral Summary ---
Author Organization [facility] Address [address] [place] [address] Care Team Providers Care Digital Program Manager Name Role Phone Elsewhere, Pcp Primary Care Provider Unavailabl e Source Comments Patient records contain information from all sites at [facility]. For routine questions regarding patient records, call [phone] during business hours, M-F 8:00 AM - 5:00 PM Central Time. Record requests for emergency care only can be directed to [phone] at any time.[facility] Encounters Date Type Department Care Team Description 11/20/2023 9:33 PM CDT - 11/23/2023 12:31 PM CDT Hospital Encounter [facility], [facility], Fifth Floor [address] [place] [address] Marielena Ma M.D. Olorode, Gbemisola, M.B.B.S., Mary. Gonzalo Pichardo M.D. Pneumonia Community Acquired [J18.9] (Primary Dx); Pneumonia Community Acquired; Influenza Discharge Disposition: Home or Self Care 11/20/2023 9:40 PM CDT Ancillary Procedure Department of Nursing 11/20/2023 Intake [facility] 11/20/2023 3:04 PM CDT - 11/20/2023 8:47 PM CDT Emergency [facility] [address] [place] [address] Madeline Lee P.A.-C., M.S. Pneumonia (Primary Dx); Hypokalemia; Hyponatremia; Weakness General Discharge Disposition: Acute Care Hospital 09/30/2023 3:00 PM CDT Procedure visit Department of Urology in [place], [place] [address] [place] [phone] Robe Cueva M.D. Benign Prostatic Hyperplasia Hypertrophy With Obstruction Discharge Disposition: Home or Self Care 09/30/2023 1:56 PM CDT - 09/30/2023 11:59 PM CDT Hospital Encounter Department of Laboratory Medicine in [address] [address] Robe Cueva M.D. Benign Prostatic Hyperplasia Hypertrophy With Obstruction Discharge Disposition: Home or Self Care 09/30/2023 3:15 PM CDT Office Visit Department of Urology in [address] [place] [address] Robe Cueva M.D. Benign Prostatic Hyperplasia Hypertrophy With Obstruction (Primary Dx) Discharge Disposition: Home or Self Care from Last 3 Months Allergies Active Allergy Reactions Criticality Noted Date Comments Harpreet Inhibitors Cough 07/18/2006 Medications Medication Sig Dispensed Refills Start Date End Date Status atorvastatin (LIPITOR) 40 mg tablet Take 40 mg by mouth daily. 01/25/2018 Active metoprolol succinate (TOPROL-XL) 200 mg 24 hr tablet Take 1 tablet by mouth daily. 01/13/2018 Active omega-3 fatty acids-fish oil 300-1,000 mg per capsule Take 2 g by mouth daily. Active cholecalciferol, vitamin D3, (cholecalciferol ) 25 mcg (1,000 Unit) tablet Take 25 mcg by mouth daily. Active multivitamin (Multiple Vitamins) tablet Take 1 tablet by mouth daily. Active omeprazole (PriLOSEC) [address] capsule Take 20 mg by mouth every morning before breakfast. 03/17/2018 Active vitamin E 90 mg (200 Unit) capsule Take 1 capsule by mouth daily. 01/09/2011 Active ginkgo biloba leaf extract 60 mg capsule Take 1 capsule by mouth daily. Active THIAMINE HCL, VITAMIN B1, ORAL Take 1 tablet by mouth daily. Active hydrOXYzine (ATARAX) 25 mg tablet Take 25 mg by mouth at bedtime as needed for allergies. Active aspirin [address] tablet Take 1 tablet (81 mg total) by mouth daily. Hold for 1 week after surgery 07/01/2023 Active clopidogreL (PLAVIX) 75 mg tablet Take 1 tablet (75 mg total) by mouth daily. Hold for 1 week after surgery 07/01/2023 Active triamterene-hydr oCHLOROthiazide (DYAZIDE) 37.5-25 mg per capsule Take 1 capsule by mouth every morning. 01/13/2018 4 Discontinued (Stop Taking at Discharge) oseltamivir (Tamiflu) 75 mg capsuleIndicatio ns:Influenza Take 1 capsule (75 mg total) by mouth 2 (two) times a day for 7 doses Indications: Influenza. 7 capsule 11/23/2023 4 cefdinir (Omnicef) 300 mg capsuleIndicatio ns:Respiratory tract infection, community acquired Take 1 capsule (300 mg total) by mouth 2 (two) times a day before morning and evening meals for 3 doses Indications: Respiratory tract infection, community acquired. 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 Unspecified Abnormalities Of Gait And Mobility Weakness Arm Left Immunizations Name Administration Dates Next Due HZV (ZOSTAVAX) 03/19/2012 Influenza, Unspecified 12/04/2016,2015,01/12/2013,01/04/2012, 7,01/30/2006,01/19/2005,01/06/2004,02/05/2003 PCV13 11/25/2015 PPSV23 01/30/2006 Td (Adult), adsorbed 02/05/2003 Social History Tobacco Use Types Packs/Day Years Used Date Smoking Tobacco: Former Cigarettes Tobacco Cessation:Counseling Given: Not Answered Alcohol Use Standard Drinks/Week Comments Yes 2 (1 standard drink = 0.6 oz pur e alcohol) daily [facility] Utilities Answer Date Recorded In the past 12 months has e [employer], oil, or water company threatened to shut off services in your [...] money to buy more. Never true 11/20/19 Within the past 12 months, t he [...] your living situation today? I have a [facility] place to live 11/20/2023 Sex and Gender Information Value Date Recorded Sex Assigned at Male 09/30/2023 2:25 PM CDT Gender Identity Male 09/30/2023 2:25 PM CDT Sexual Orientation Straight 09/30/2023 2: 25 PM CDT Last Filed Vital Signs Vital Sign Reading [...] Mass Index 31.73 11/20/2023 9:33 PM CDT Plan of Treatment Not on file Procedures Procedure Name Priority Date/Time Associated Diagnosis Comments MAGNESIUM, S Routine 11/23/2023 7:05 AM CDT BASIC METABOLIC PANEL, S/P Routine 11/23/2023 7:05 AM CDT CBC WITH DIFFERENTIAL, B Routine 11/23/2023 7:05 AM CDT GRAM STAIN Routine 11/22/2023 11:06 AM CDT BACTERIAL CULTURE, AEROBIC + SUSC, RESP Routine 11/22/2023 11:06 AM CDT PEP THERAPY Routine 11/22/2023 11:00 AM CDT PNEUMONIA PANEL, PCR Routine 11/22/2023 10:57 AM CDT PEP THERAPY Routine 11/22/2023 9:00 AM CDT COMPREHENSIVE METABOLIC PANEL, S/P Routine 11/22/2023 8:08 AM CDT CBC WITHOUT DIFFERENTIAL, B Routine 11/22/2023 8:08 AM CDT PEP THERAPY [...] PEP THERAPY Routine 11/21/2023 8:01 PM CDT MORPHOLOGY EVALUATION Routine 11/21/2023 8:58 AM CDT COMPREHENSIVE METABOLIC PANEL, S/P Routine 11/21/2023 8:58 AM CDT NT-PRO B-TYPE NATRIURETIC PEPTIDE (BNP), S Routine 11/21/2023 8:58 AM CDT MAGNESIUM, S Routine 11/21/2023 8:58 AM CDT CBC WITH DIFFERENTIAL, B Routine 11/21/2023 8:58 AM CDT HCV AB W/REFLEX TO HCV PCR, S Routine 11/21/2023 8:58 AM CDT HBS ANTIGEN SCRN, S Routine 11/21/2023 8 :58 AM CDT ECG Routine 11/21/2023 8:42 AM CDT NURSING IMAGE EXAM Routine 11/20/2023 9: 38 PM CDT HC URINALYSIS AUTO W MICRO STAT 11/20/2023 7:27 PM CDT URINALYSIS WITH MICROSCOPIC IF INDICATED, U STAT 11/20/2023 7:[address] ABDOMEN PELVIS WITH IV CONTRAST RAD - Semiurgent (Fast; most ED patients; some inpatients) 11/20/2023 5:44 PM CDT BACTERIA / MARY CULTURE, BLOOD STAT 11/20/2023 5:[address] CHEST WITH IV CONTRAST RAD - Semiurgent (Fast; most ED patients; some inpatients) 11/20/2023 5:37 PM CDT ECG STAT 11/20/2023 5:26 PM CDT LACTATE FOR SEPSIS WITH REFLEX STAT 11/20/2023 5:05 PM CDT COMPREHENSIVE METABOLIC PANEL, S/P STAT 11/20/2023 5:05 PM CDT CBC WITH DIFFERENTIAL, B STAT 11/20/2023 5:05 PM CDT DX CHEST AP OR PA AND LATERAL 2 VIEWS RAD - Semiurgent (Fast; most ED patients; some inpatients) 11/20/2023 4:06 PM CDT INFLUENZA A, B, RSV, PCR, POCT STAT 11/20/2023 3:10 PM CDT SARS CORONAVIRUS 2, PCR RAPID, V STAT 11/20/2023 3:10 PM CDT DC MG PST VOID RESID US NON IMG Routine 09/30/2023 3:00 PM CDT Benign Prostatic Hyperplasia Hypertrophy With Obstruction DC UROFLOWMETRY CMPLX Routine 09/30/2023 3:00 PM CDT Benign Prostatic Hyperplasia Hypertrophy With Obstruction PROSTATE-SPECIFIC AG (PSA) DIAGNOSTIC, S Routine 09/30/2023 2:08 PM CDT Benign Prostatic Hyperplasia Hypertrophy With Obstruction from Last 3 Months Results * (ABNORMAL) CBC with Differential, Blood (11/23/2023 7:05 AM CDT) Only the most recent of3 resultswithin the time period is included. Hemoglobin 10.2(L) 13.2 - 16.6 g/dL 11/23/2023 [...] M.D. LAB BLOOD ADD-ON Performing Organization Address City/[facility]/ZIP Co de Phone Number [facility] [address] [place] [address] * Magnesium (11/23/2023 7:05 AM CDT) Only the most recent of2 resultswithin the time period is included. Magnesium, P 1.9 1.7 - 2.3 mg/dL 11/23/2023 8:01 AM CDT [facility]TO Blood (Blood, Venous) 11/23/2023 7:05 AM CDT 11/23/2023 7:17 AM CDT Gonzalo Pichardo M.D. LAB BLOOD ADD-ON Performing Organization Address [facility] Co de Phone Number [facility] [address] [place] [address], [place] [address] * (ABNORMAL) Basic Metabolic Panel (11/23/2023 7:05 [...] M.D. LAB BLOOD ADD-ON Performing Organization Address City/[facility]/ZIP Co de Phone Number [facility] [address] [place] [address], [place] [address] * Bacterial Culture, Aerobic + Susceptibility, Respiratory (11/22/2023 11:06 AM CDT) Bacterial Culture, Aerobic, Resp Upper respiratory/or al microbiota 11/24/2023 9:15 AM CDT TO Sputum (Sputum) 11/22/2023 1 1:06 AM CDT 11/22/2023 11:06 AM CDT Comment:Specimen Source Site : Sputum Gonzalo Pichardo M.D. LAB MICROBIOLOGY - G ENERAL ORDERABLES [facility] [address] [place] [address], [place] [address] * Gram Stain (11/22/2023 11:06 AM CDT) Gram Stain Mixed microbiota 11/22/2023 11:28 AM CDT [facility] Sputum (Sputum) 11/22/2023 1 1:06 AM CDT 11/22/2023 11:06 AM CDT Comment:Specimen Source Site : Sputum Gonzalo Pichardo M.D. LAB MICROBIOLOGY - G ENERAL ORDERABLES [facility] [address] [place] [address], [facility] MKTO [facility] in [place] [address] [place] [address] * (ABNORMAL) Pneumonia Panel, PCR (11/22/2023 10:57 [...] using the FDA-cleared FilmArray Pneumonia Panel (PN) ([employer] Any initial empiric treatment guidance provided in [...] Gonzalo Pichardo M.D. LAB MICROBIOLOGY - [facility] ORDERABLES [facility] [address] [place] [address], [facility] [address] [place] [address] * (ABNORMAL) CBC without Differential (11/22/2023 8:08 [...] CDT Gonzalo Pichardo M.D. LAB BLOOD ADD-ON [facility] [address] [place] [address], [facility] MK[facility] in [address] [address] * (ABNORMAL) Comprehensive Metabolic Panel (11/22/2023 8:08 AM CDT) Only the most recent of3 resultswithin the time period is included. Pathologist [facility] Potassium, P 3.5(L) 3.6 - 5.2 mmol/L [...] CDT Gonzalo Pichardo M.D. LAB BLOOD ADD-ON [facility] [address] [place] [address], [address] [address] * HBs Antigen Scrn, Serum (11/21/2023 8:58 AM CDT) HBs Antigen Scrn, S Nonreactive Nonreactive 11/21/2023 10:39 AM CDT MKTO Blood (Blood, Venous) 11/21/2023 8:58 AM CDT 11/21/2023 9:23 AM CDT Gonzalo Pichardo M.D. LAB MICROBIOLOGY - B LOOD ORDERABLES Performing Organization Address [facility] Co de Phone Number [facility] [address] [place] [address], [place] [address] * (ABNORMAL) Morphology Evaluation (11/21/2023 8:58 AM [...] LAB BLO OD ADD-ON Performing Organization Address City/[facility]/ZIP Co de Phone Number [facility] [address] [place] [address] * HCV Ab w/Reflex to HCV PCR, Serum (11/21/2023 8:58 AM CDT) HCV Ab, S Negative Negative 11/21/2023 10:39 AM CDT MKTO Blood (Blood, Venous) 11/21/2023 8:58 AM CDT 11/21/2023 9:23 AM CDT Narrative [facility] - 11/21/2023 10:39 AM CDT Specimen Information: Specimen ID: [id number] Specimen Type: Blood Specimen Collection Start Date: 11/21/2023 ??8:58 AM Specimen Received Date: 11/21/2023 ??9:23 AM Specimen ID: [id number] Specimen Type: Blood Specimen Collection Start Date: 11/21/2023 ??8:58 AM Specimen Received Date: 11/21/2023 ??9:23 AM Gonzalo Pichardo M.D. LAB MICROBIOLOGY - B LOOD ORDERABLES Performing Organization Address City/[facility]/ZIP Co de Phone Number [facility] [address] [place] [address], [place] [address] * NT-Pro B-Type Natriuretic Peptide (BNP) (11/21/2023 [...] LAB BLO OD ADD-ON Performing Organization Address [facility] Co de Phone Number [facility] [place] [address], [facility] MKTO [facility] in [place] [address] [place] [address] * ECG 12 Lead (11/21/2023 8:42 AM CDT) Only the most recent of2 resultswithin the time period is included. Ventricular Rate ECG/Min 83 BPM MUSE DC Interval 184 ms MUSE QRSD Interval 92 ms MUSE QT Interval 402 ms MUSE QTC Interval 472 ms MUSE P [place] 8 degrees MUSE R [place] -18 degrees MUSE T Wave [place] 7 degrees MUSE 11/21/2023 8:42 AM CDT [...] Carrington M.D. ECG ORD ERABLES MUSE NA * Coccyx-Nursing Image Exam (11/20/2023 9:38 PM CDT) 11/20/2023 9:36 PM CDT Narrative [facility] - 11/20/2023 9:38 PM CDT This order has been created and auto-finalized to support the import of images acquired without order. The clinical documentation to support these images can be found on the encounter that produced images. Provider Not In System IMG NON RAD IMAGI NG PROCEDURES Performing Organization Address [facility] Co de Phone Number [facility] NA * (ABNORMAL) Urinalysis with Microscopic if Indicated (11/20/2023 7:27 PM CDT) Source Urine, Urine, Midstream 11/20/2023 7:30 PM CDT [facility] Clarity Clear Clear 11/20/2023 7:32 PM CDT [facility] Color Yellow 11/20/2023 7:32 PM CDT [facility] Comment: ----REFERENCE VALUE---- Colorless Yellow Shelia Blood Negative Negative 11/20/2023 7:32 PM CDT [facility] Nitrite Negative Negative 11/20/2023 7:32 PM CDT [facility] Leukocyte Esterase Negative Negative 11/20/2023 7:32 PM CDT [facility] Protein 30(A) mg/dL 11/20/2023 7:32 PM CDT [facility] Comment: ----REFERENCE VALUE---- Negative Trace Glucose Negative Negative mg/dL 11/20/2023 7:32 PM CDT [facility] Ketones, QI(U) Negative Negative mg/dL 11/20/2023 7:32 PM CDT [facility] Bilirubin Negative Negative 11/20/2023 7:32 PM CDT [facility] pH 7.0 5.0 - 8.0 11/20/2023 7:32 PM CDT [facility] Specific [place] 1.010 1.001 - 1.035 11/20/2023 7:32 PM CDT [facility] Urobilinogen 1.0 0.2 - 1.0 mg/dL 11/20/2023 7:32 PM CDT [facility] Urine (Urine, Midstream) 11/20/2023 7:27 PM CDT 11/20/2023 7:29 PM CDT Laureen Chavez P.A.-C. LAB URINE ORDER SCARLETT Performing Organization Address City/[facility] Co de Phone Number [facility] [address] [place] [address], [facility] in [address] [address] * Microscopic Manual (11/20/2023 7:27 PM CDT) White Blood Cells Occ-3 /hpf 11/20/2023 7:38 PM CDT [facility] Comment: ----REFERENCE VALUE---- Males: 0-3 Females: 0-10 Unknown: 0-10 Red Blood Cells None Seen 0 - 2 /hpf 11/20/2023 7:38 PM CDT [facility] Squamous Cells None Seen /hpf 11/20/2023 7:38 PM CDT [facility] Urine 11/20/2023 7:27 PM CDT 11/20/2023 7:29 PM CDT Laureen Chavez P.A.-C. LAB URINE ORDER SCARLETT Performing Organization Address City/[facility] Co de Phone Number [facility] [address] [place] [address], [facility] [place] [facility] in [address] [address] * CT Abdomen Pelvis with IV Contrast (11/20/2023 5:44 PM CDT) Anatomical Region Laterality Modality Abdomen, Pelvis, Abdominal R ST LOS, Abdominal ARZ LOS, Abdominal FLA LOS N/A Computed Tomography 11/20/2023 5:38 PM CDT Impressions 11/20/2023 5:55 PM CDT Multifocal bilateral pneumonia, predominantly in the lower lobes. No acute findings in the abdomen or pelvis. Narrative 11/20/2023 5:55 PM CDT EXAM: CT CHEST WITH IV CONTRAST, CT ABDOMEN PELVIS WITH IV CONTRAST COMPARISON: Chest x-ray today FINDINGS: Chest: Moderate multifocal patchy consolidative, and tree-in-bud infiltrates in the bilateral lower lobes, slightly greater on the left. Additional mild nodular tree-in-bud infiltrates in the right middle lobe and lingula. Findings are compatible with multifocal pneumonia, probable additional superimposed atelectasis in the posterior lower lobes. Mild scattered subpleural and peripheral linear and nodular densities in both lungs, likely nodular scarring. Mild to moderate bronchial wall thickening in the bilateral lower lobes, and mild to moderate multifocal mucus plugging primarily in the posterior lower lobes. No pneumothorax. No pleural effusion. No pericardial effusion. Normal cardiac size. Coronary artery calcifications. Small calcified right hilar nodes. Mildly enlarged subcarinal and azygoesophageal recess nodes. Moderate-sized hiatal hernia. Normal caliber thoracic aorta and normal caliber central pulmonary arteries. Mild multilevel degenerative changes in the thoracic spine. Abdomen and pelvis: No suspicious hepatic mass. Several incidental hepatic cysts. Gallbladder is unremarkable. No biliary dilatation. The spleen, and adrenal glands are normal. Generalized pancreatic parenchymal atrophy. No hydronephrosis. No suspicious renal mass. No ureteral dilatation. Urinary bladder is unremarkable. Mild prostate enlargement. Partly visualized moderate-sized right scrotal hydrocele. Severe degenerative arthritis in the left hip. Right hip prosthesis. No bowel dilatation or wall thickening. Normal appendix. Normal caliber abdominal aorta. No adenopathy. Procedure Note Angel Pereira M.D. - 11/20/2023 EXAM: CT CHEST WITH IV CONTRAST, CT ABDOMEN PELVIS WITH IV CONTRAST COMPARISON: Chest x-ray today FINDINGS: Chest: Moderate multifocal patchy consolidative, and yzqc-ov-ncnqhcnstzcyle in the bilateral lower lobes, slightly greater on the left.Additional mild nodular tree-in-bud infiltrates in the right middle lobeand lingula. Findings are compatible with multifocal pneumonia, probable additional superimposedatelectasis in the posterior lower lobes. Mild scattered subpleural andperipheral linear and nodular densities in both lungs, likely nodularscarring. Mild to moderate bronchial wall thickening in the bilateral lower lobes, and mild to moderate multifocalmucus plugging primarily in the posterior lower lobes. No pneumothorax. Nopleural effusion. No pericardial effusion. Normal cardiac size. Coronaryartery calcifications. Small calcified right hilar nodes. Mildly enlarged subcarinal andazygoesophageal recess nodes. Moderate-sized hiatal hernia. Normal caliberthoracic aorta and normal caliber central pulmonary arteries. Mildmultilevel degenerative changes in the thoracic spine. Abdomen and pelvis: No suspicious hepatic mass. Several incidental hepaticcysts. Gallbladder is unremarkable. No biliary dilatation. The spleen, andadrenal glands are normal. Generalized pancreatic parenchymal atrophy. Nohydronephrosis. No suspicious renal mass. No ureteral dilatation. Urinary bladder is unremarkable. Mildprostate enlargement. Partly visualized moderate-sized right scrotalhydrocele. Severe degenerative arthritis in the left hip. Right hipprosthesis. No bowel dilatation or wall thickening. Normal appendix. Normal caliber abdominal aorta. Noadenopathy. IMPRESSION: Multifocal bilateral pneumonia, predominantly in the lower lobes. No acute findings in the abdomen or pelvis. Laureen Edwards.Ace IMG CT PROCEDUR ES * Bacteria / Mary Culture, Blood #1 (11/20/2023 5:42 PM CDT) Bacteria/Urszula da Culture, Blood No growth after 5 day/s of incubation. 11/25/2023 6:05 PM CDT [facility] Blood (Blood, Peripheral Draw) 11/20/2023 5:42 PM CDT 11/20/2023 5:42 PM CDT Comment:Specimen Source Site : Blood Laureen Edwards.[email or web address]. LAB MICROBIOLOG Y - GENERAL ORDERABLES [facility] [address] [place] [address], [facility] [place] [facility] in [address] [address] * CT Chest with IV Contrast (11/20/2023 5:37 PM CDT) Anatomical Region Laterality Modality Chest, Thoracic RST LOS, Tho racic ARZ LOS, Thoracic ARZ LOS, Thoracic FLA LOS N/A Computed Tomography 11/20/2023 5:22 PM CDT Impressions 11/20/2023 5:55 PM CDT Multifocal bilateral pneumonia, predominantly in the lower lobes. No acute findings in the abdomen or pelvis. Narrative 11/20/2023 5:55 PM CDT EXAM: CT CHEST WITH IV CONTRAST, CT ABDOMEN PELVIS WITH IV CONTRAST COMPARISON: Chest x-ray today FINDINGS: Chest: Moderate multifocal patchy consolidative, and tree-in-bud infiltrates in the bilateral lower lobes, slightly greater on the left. Additional mild nodular tree-in-bud infiltrates in the right middle lobe and lingula. Findings are compatible with multifocal pneumonia, probable additional superimposed atelectasis in the posterior lower lobes. Mild scattered subpleural and peripheral linear and nodular densities in both lungs, likely nodular scarring. Mild to moderate bronchial wall thickening in the bilateral lower lobes, and mild to moderate multifocal mucus plugging primarily in the posterior lower lobes. No pneumothorax. No pleural effusion. No pericardial effusion. Normal cardiac size. Coronary artery calcifications. Small calcified right hilar nodes. Mildly enlarged subcarinal and azygoesophageal recess nodes. Moderate-sized hiatal hernia. Normal caliber thoracic aorta and normal caliber central pulmonary arteries. Mild multilevel degenerative changes in the thoracic spine. Abdomen and pelvis: No suspicious hepatic mass. Several incidental hepatic cysts. Gallbladder is unremarkable. No biliary dilatation. The spleen, and adrenal glands are normal. Generalized pancreatic parenchymal atrophy. No hydronephrosis. No suspicious renal mass. No ureteral dilatation. Urinary bladder is unremarkable. Mild prostate enlargement. Partly visualized moderate-sized right scrotal hydrocele. Severe degenerative arthritis in the left hip. Right hip prosthesis. No bowel dilatation or wall thickening. Normal appendix. Normal caliber abdominal aorta. No adenopathy. Procedure Note Angel Pereira M.D. - 11/20/2023 EXAM: CT CHEST WITH IV CONTRAST, CT ABDOMEN PELVIS WITH IV CONTRAST COMPARISON: Chest x-ray today FINDINGS: Chest: Moderate multifocal patchy consolidative, and gidk-mg-kmllteysgmvfco in the bilateral lower lobes, slightly greater on the left.Additional mild nodular tree-in-bud infiltrates in the right middle lobeand lingula. Findings are compatible with multifocal pneumonia, probable additional superimposedatelectasis in the posterior lower lobes. Mild scattered subpleural andperipheral linear and nodular densities in both lungs, likely nodularscarring. Mild to moderate bronchial wall thickening in the bilateral lower lobes, and mild to moderate multifocalmucus plugging primarily in the posterior lower lobes. No pneumothorax. Nopleural effusion. No pericardial effusion. Normal cardiac size. Coronaryartery calcifications. Small calcified right hilar nodes. Mildly enlarged subcarinal andazygoesophageal recess nodes. Moderate-sized hiatal hernia. Normal caliberthoracic aorta and normal caliber central pulmonary arteries. Mildmultilevel degenerative changes in the thoracic spine. Abdomen and pelvis: No suspicious hepatic mass. Several incidental hepaticcysts. Gallbladder is unremarkable. No biliary dilatation. The spleen, andadrenal glands are normal. Generalized pancreatic parenchymal atrophy. Nohydronephrosis. No suspicious renal mass. No ureteral dilatation. Urinary bladder is unremarkable. Mildprostate enlargement. Partly visualized moderate-sized right scrotalhydrocele. Severe degenerative arthritis in the left hip. Right hipprosthesis. No bowel dilatation or wall thickening. Normal appendix. Normal caliber abdominal aorta. Noadenopathy. IMPRESSION: Multifocal bilateral pneumonia, predominantly in the lower lobes. No acute findings in the abdomen or pelvis. Laureen Edwards.A.-C. IMG CT PROCEDUR ES * Lactate for Sepsis with Reflex (11/20/2023 5:05 PM CDT) Lactate, P 1.6 0.5 - 2.2 mmol/L 11/20/2023 5:26 PM CDT [facility] Blood (Blood, Venous) 11/20/2023 5:05 PM CDT 11/20/2023 5:07 PM CDT Laureen Chavez P.A.-C. LAB BLOOD NON A DD-ON [facility] [address] [place] [address], [facility] in [address] [address] * DX Chest AP or PA and Lateral 2 Views (11/20/2023 4:06 PM CDT) Anatomical Region Laterality Modality Chest, Thoracic RST LOS, Tho racic ARZ LOS, Thoracic FLA LOS N/A Digital Radiography Impressions 11/20/2023 4:08 PM CDT Normal chest Narrative 11/20/2023 4:08 PM CDT EXAM: DX CHEST AP OR PA AND LATERAL 2 VIEWS COMPARISON: Chest x-ray 02/19/2023 FINDINGS: The heart is normal in size. The lungs are clear. Procedure Note Robe Juarez M.D. - 11/20/2023 EXAM: DX CHEST AP OR PA AND LATERAL 2 VIEWS COMPARISON: Chest x-ray 02/19/2023 FINDINGS: The heart is normal in size. The lungs are clear. IMPRESSION: Normal chest Madeline Lee P.A.-C., M.S. IMG DIAGNOSTIC IMAGING PROCEDURES * SARS Coronavirus 2, PCR Rapid Symptomatic (11/20/2023 3:10 PM CDT) SARS CoV-2, PCR, Rapid, V Undetected Undetected 11/20/2023 2:58 PM CDT [facility] SARS Coronavirus 2, Source, Rapid Swab, Nasopharynx 11/20/2023 3:12 PM CDT [facility] Swab (Nasopharynx) 11/20/2023 3:10 PM CDT 11/20/2023 3:12 PM CDT Madeline Lee P.A.-C., M.S. LAB MICROBIOLOGY - GENERAL ORDERABLES [facility] [address] [place] [address], [facility] in [address] [address] * Influenza A/B and RSV, PCR, Point of Care (11/20/2023 3:10 PM CDT) Influenza A, POCT Negative Negative 11/20/2023 3:17 PM CDT [facility] Influenza B, POCT Negative Negative 11/20/2023 3:17 PM CDT [facility] Resp Syncytial Virus, POCT Negative Negative 11/20/2023 3:17 PM CDT [facility] Swab (Nasopharynx) 11/20/2023 3:10 PM CDT 11/20/2023 3:12 PM CDT Madeline Lee P.A.-C. M.S. LAB POCT ORDERABLES - DEVICE [facility] [address] [place] [address], [facility] in [place] [address] * DC UROFLOWMETRY CMPLX, DC MG PST VOID RESID US NON IMG (09/30/2023 3:00 PM CDT) Narrative Robe Cueva M.D. - 09/30/2023 3:00 PM CDT Robe Cueva M.D. ? 09/30/2023 ??3:18 PM URO Uroflow Performed by: Robe Cueva M.D. Authorized by: Robe Cueva M.D. ?? Care team members present 1. Shelia Crystal L.PCammieN. PROCEDURE DETAILS Calibrated electronic equipment used. Total voided volume (mL): 114 Peak flow (mL/seconds): 9 Average flow (mL/seconds): 4 Voiding time (seconds): 37 Flow pattern: intermittent Residual urine (mL): 1 Measured by: ultrasound Impression: Low voided volume with low postvoid residual. CONSENT Consent obtained: verbal Consent given by: patient [employer] All relevant documentation and testing were reviewed and available. All required blood products, implants, devices and or special equipment were made available as applicable. Pre-procedure verification was conducted and the correct site was marked if required. A fire risk assessment was done as applicable. The procedural time-out to verify correct patient, correct side/site, and procedure was conducted prior to performing the procedure and confirmed in a procedural pause. PRE-PROCEDURE DETAILS Procedure purpose: diagnostic SEDATION / ANESTHESIA Anesthesia method: none POST-PROCEDURE DETAILS Patient tolerance of procedure: successful Complications: no apparent complications Robe Cueva M.D. UROLOGY ORDERABLES * PSA (Prostate-Specific Antigen), Diagnostic (09/30/2023 2:08 PM CDT) Prostate-Specific Ag 0.30 <=7.2 ng/mL 09/30/2023 3:08 PM CDT [facility] Comment: ----ADDITIONAL INFORMATION---- The testing method is an electrochemiluminescence assay manufactured by [employer] and performed on the Modular or Sarmad system. Values obtained with different assay methods or kits may be different and cannot be used interchangeably. Test results cannot be interpreted as absolute evidence for the presence or absence of malignant disease. Blood (Blood, Venous) 09/30/2023 2:08 PM CDT 09/30/2023 2:12 PM CDT Robe Cueva M.D. LAB BLOOD ADD-ON [facility] [address] [place] [address], [facility] [place] [address] [place] [address] from Last 3 Months Advance Directives For more information, please contact: [phone] * DNR/DNI (Latest Code Status on File) Date Activated Date Inactivated Comments 11/20/2023 11:20 PM 11/23/2023 2:37 PM Question Answer Comments DNR/DNI (Do Not Resuscitate/Do Not Intubate): Di scussed-Patient * Full Code Date Activated Date Inactivated Comments 02/23/2023 5:19 PM 02/28/2023 3:12 PM Question Answer Comments Full Code: Not Discussed Due to: Patient not available * Full Code Date Activated Date Inactivated Comments 02/20/2023 1:55 PM 02/23/2023 4:47 PM Question Answer Comments Full Code: Not Discussed Due to: Patient not available Care Teams Digital Program Manager Relationship Specialty Start Date End Date Elsewhere, Pcp PCP - General Internal Medicine 02/20/23
--- OUTSIDE RECORDS SUMMARY | 2023-12-09 10:54 | XMS_ITS | Clinical Summary ---
Author Organization [facility] Address [address] [place] [address] Care Team Providers Care Otr Van Cdl Truck Driver Name Role Phone Elsewhere, Pcp Primary Care Provider Unavailabl e Source Comments Patient records contain information from all sites at [facility]. For routine questions regarding patient records, call [phone] during business hours, M-F 8:00 AM - 5:00 PM Central Time. Record requests for emergency care only can be directed to [phone] at any time.[facility] Allergies Active Allergy Reactions Criticality Noted Date [...] Of Gait And Mobility Weakness Arm Left Encounters Date Type Department Care Team Description 11/20/2023 9:40 PM CDT Ancillary Procedure Department of Nursing 11/20/2023 9:33 PM CDT - 11/23/2023 12:31 PM CDT Hospital Encounter [facility], Fifth Floor [address] [place] [address] Marielena Ma M.D. Olorode, Gbemisola, M.B.BCammieSCammie, Gonzalo Bland M.D. Pneumonia Community Acquired [J18.9] (Primary Dx); Pneumonia Community Acquired; Influenza Discharge Disposition: Home or Self Care 11/20/2023 3:04 PM CDT - 11/20/2023 8:47 PM CDT Emergency [facility] [address] [place] [address] Madeline Lee P.A.-C., M.S. Pneumonia (Primary Dx); Hypokalemia; Hyponatremia; Weakness General Discharge Disposition: Acute Care Hospital 11/20/2023 Intake [facility] 09/30/2023 3:15 PM CDT Office Visit Department of Urology in [address] [address] Robe Cueva M.D. 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 Benign Prostatic Hyperplasia Hypertrophy With Obstruction Discharge Disposition: Home or Self Care 09/30/2023 1:56 PM CDT - 09/30/2023 11:59 PM CDT Hospital Encounter Department of Laboratory Medicine in [address] [address] Robe Cueva M.D. Benign Prostatic Hyperplasia Hypertrophy With Obstruction Discharge Disposition: Home or Self Care from Last 3 Months Immunizations Name Administration Dates Next Due HZV (ZOSTAVAX) 03/19/2012 Influenza, Unspecified 12/04/2016,2015,01/12/2013,01/04/2012, 7,01/30/2006,01/19/2005,01/06/2004,02/05/2003 PCV13 11/25/2015 PPSV23 01/30/2006 Td (Adult), adsorbed 02/05/2003 Social History Tobacco Use Types Packs/Day Years Used Date Smoking Tobacco: Former Cigarettes Tobacco Cessation:Counseling Given: Not Answered Alcohol Use Standard Drinks/Week Comments Yes 2 (1 standard drink = 0.6 oz pur e alcohol) daily [facility] Utilities Answer Date Recorded In the past 12 months has [employer], oil, or water company threatened to shut [...] your living situation today? I have a [facility] place to live 11/20/2023 Sex and [...] 11/20/2023 9:33 PM CDT Plan of Treatment Health Maintenance Due Date Last Done Comments Office Visit for Blood Press ure Check / Re-check 1945 Zoster Vaccines (2 of 3) 05/14/2012 03/19/2012 RSV vaccine - (32-3 6 weeks) or 60+ years (1 - 1-dose 75+ series) 07/09/2018 Depression Screening (Annual PHQ-2) 03/11/2023 COVID-19 Vaccine (4 - 2023-2 5 season) 2023 08/09/2021, 02/16/2021, 05/17/2020 Influenza Vaccine (#1) 2023 3, 01/02/2022, 01/18/2021, Additional history exists DTaP,Tdap,and Td Vaccines (2 - Td or Tdap) 01/14/2024 01/13/2014, 02/05/2003 Pneumococcal vaccine (65+ years) Completed 11/27/2017, 11/25/2015, 01/30/2006 Abdominal Aortic Aneurysm (A AA) Screen Discontinued 11/20/2023 Fall Risk Screen (Annual) Completed 11/20/2023 Procedures Procedure Name Priority Date/Time Associated Diagnosis [...] RAPID, V STAT 11/20/2023 3:10 PM CDT SD MG PST VOID RESID US NON IMG Routine 09/30/2023 3:00 PM CDT Benign Prostatic Hyperplasia Hypertrophy With Obstruction SD UROFLOWMETRY CMPLX Routine 09/30/2023 3:00 PM CDT [...] CDT Gonzalo Pichardo M.D. LAB BLOOD ADD-ON [facility] [address] [place] [address], [facility] in [address] [address] * Magnesium (11/23/2023 7:05 AM CDT) Only the most recent of2 resultswithin the time period is included. Magnesium, P 1.9 1.7 - 2.3 mg/dL 11/23/2023 8:01 AM CDT [facility] Blood (Blood, Venous) 11/23/2023 7:05 AM CDT 11/23/2023 7:17 AM CDT Gonzalo Pichardo M.D. LAB BLOOD ADD-ON [facility] [address] [place] [address] [place] [address] * (ABNORMAL) Basic Metabolic Panel (11/23/2023 7:05 AM CDT) Pathologist [facility] Potassium, P 3.9 3.6 - 5.2 mmol/L [...] CDT Gonzalo Pichardo M.D. LAB BLOOD ADD-ON [facility] [address] [place] [address], [place] [address] * Bacterial Culture, Aerobic + Susceptibility, Respiratory (11/22/2023 11:06 AM CDT) Bacterial Culture, Aerobic, Resp Upper respiratory/or al microbiota 11/24/2023 9:15 AM CDT [facility] Sputum (Sputum) 11/22/2023 1 1:06 AM CDT 11/22/2023 11:06 AM CDT Comment:Specimen Source Site : Sputum Gonzalo Pichardo M.D. LAB MICROBIOLOGY - G ENERAL ORDERABLES [facility] [address] [place] [address], [place] [address] * Gram Stain (11/22/2023 11:06 AM CDT) Gram Stain Mixed microbiota 11/22/2023 11:28 AM CDT [facility] Sputum (Sputum) 11/22/2023 1 1:06 AM CDT 11/22/2023 11:06 AM CDT Comment:Specimen Source Site : Sputum Gonzalo Pichardo M.D. LAB MICROBIOLOGY - G ENERAL ORDERABLES Performing Organization Address City/[facility] Co de Phone Number [facility] [address] [place] [address], [place] [address] * (ABNORMAL) Pneumonia Panel, PCR (11/22/2023 10:57 [...] using the FDA-cleared FilmArray Pneumonia Panel (PN) (INNFOCUS.). Any initial empiric treatment guidance provided in [...] Gonzalo Pichardo M.D. LAB MICROBIOLOGY - G [facility] ORDERABLES [facility] [place] [address], [facility] [place] [address] * (ABNORMAL) CBC without Differential (11/22/2023 8:08 AM CDT) Pathologist [facility] Hemoglobin 11.2(L) 13.2 - 16.6 g/dL 11/22/2023 [...] CDT Gonzalo Pichardo M.D. LAB BLOOD ADD-ON [facility] [address] [place] [address], [facility] in [place] [address] [place] [address] * (ABNORMAL) Comprehensive Metabolic Panel (11/22/2023 8:08 AM CDT) Only the most recent of3 resultswithin the time period is included. Potassium, P 3.5(L) 3.6 - 5.2 mmol/L [...] CDT Gonzalo Pichardo M.D. LAB BLOOD ADD-ON [facility] [address] [place] [address] * HBs Antigen Scrn, Serum (11/21/2023 8:58 AM CDT) HBs Antigen Scrn, S Nonreactive Nonreactive 11/21/2023 10:39 AM CDT [facility] Blood (Blood, Venous) 11/21/2023 8:58 AM CDT 11/21/2023 9:23 AM CDT Gonzalo Pichardo M.D. LAB MICROBIOLOGY - B LOOD ORDERABLES Performing Organization Address City/[facility]/ZIP Co de Phone Number [facility] [address] [place] [address], [place] [address] * (ABNORMAL) Morphology Evaluation (11/21/2023 8:58 AM [...] Thad Carrington M.D. LAB BLO OD ADD-ON [facility] [address] [place] [address] [place] [address] * HCV Ab w/Reflex to HCV PCR, Serum (11/21/2023 8:58 AM CDT) Pathologist [facility] HCV Ab, S Negative Negative 11/21/2023 10:39 AM CDT [facility] Blood (Blood, Venous) 11/21/2023 8:58 AM CDT 11/21/2023 9:23 AM CDT Narrative [facility] - 11/21/2023 10:39 AM CDT Specimen Information: Specimen ID: [id number] Specimen Type: Blood Specimen Collection Start Date: 11/21/2023 ??8:58 AM Specimen Received Date: 11/21/2023 ??9:23 AM Specimen ID: [id number] Specimen Type: Blood Specimen Collection Start Date: 11/21/2023 ??8:58 AM Specimen Received Date: 11/21/2023 ??9:23 AM Gonzalo Pichardo M.D. LAB MICROBIOLOGY - B LOOD ORDERABLES Performing Organization Address City/[facility]/ZIP Co de Phone Number [facility] [address] [place] [address], [place] [address] * NT-Pro B-Type Natriuretic Peptide (BNP) (11/21/2023 8:58 AM CDT) NT-Pro BNP 460 <=540 pg/mL 11/21/2023 9:58 AM CDT [facility] Comment: NT-proBNP values less than 300 pg/mL [...] LAB BLO OD ADD-ON Performing Organization Address City/[facility]/ZIP Co de Phone Number [facility] [address] [place] [address], [place] [address] * ECG 12 Lead (11/21/2023 8:42 AM CDT) Only the most recent of2 resultswithin the time period is included. Ventricular Rate ECG/Min 83 BPM MUSE SD Interval 184 ms MUSE QRSD Interval 92 ms MUSE QT Interval 402 ms MUSE QTC Interval 472 ms MUSE P Lucan 8 degrees MUSE R Lucan -18 degrees MUSE T Wave [place] 7 degrees MUSE 11/21/2023 8:42 AM CDT [...] Cheng Thad Carrington M.D. ECG ORD ERABLES Performing Organization Address City/[facility]/ZIP Co de Phone Number MUSE NA * Coccyx-Nursing Image Exam (11/20/2023 [...] RAD IMAGI NG PROCEDURES Performing Organization Address City/[facility]/ZIP Co de Phone Number IIMS NA * [...] 8.0 11/20/2023 7:32 PM CDT [facility] Specific [place] 1.010 1.001 - 1.035 11/20/2023 7:32 PM CDT [facility] Urobilinogen 1.0 0.2 - 1.0 mg/dL 11/20/2023 7:32 PM CDT [facility] Urine (Urine, Midstream) 11/20/2023 7:27 PM CDT 11/20/2023 7:29 PM CDT Laureen Chavez P.A.-C. LAB URINE ORDER [facility] [address] [place] [address], [facility] in [place] [id number] * Microscopic Manual (11/20/2023 7:27 PM CDT) [...] Laureen Chavez P.A.-C. LAB URINE ORDER [facility] [address] [place] [address], [place] [facility] in [place] [address] * CT Abdomen Pelvis with IV Contrast [...] FINDINGS: Chest: Moderate multifocal patchy consolidative, and owwf-yk-fppimhljoghocj in the bilateral lower lobes, slightly greater [...] findings in the abdomen or pelvis. Laureen Chavez P.A.-C. [facility] CT PROCEDUR ES * Bacteria / Mary Culture, Blood #1 (11/20/2023 5:42 PM CDT) Bacteria/Urszula da Culture, Blood No growth after 5 day/s of incubation. 11/25/2023 6:05 PM CDT [facility] Blood (Blood, Peripheral Draw) 11/20/2023 5:42 PM CDT 11/20/2023 5:42 PM CDT Comment:Specimen Source Site : Blood Laureen Chavez P.A.-C. LAB MICROBIOLOG Y - GENERAL ORDERABLES [facility] [address] [place] [address], [facility] in [address] [address] * CT Chest with IV Contrast (11/20/2023 [...] FINDINGS: Chest: Moderate multifocal patchy consolidative, and gvih-gd-qxdfofrpqbfqfb in the bilateral lower lobes, slightly greater [...] findings in the abdomen or pelvis. Laureen Chavez P.A.-C. [facility] CT PROCEDUR ES * Lactate for Sepsis with Reflex (11/20/2023 5:05 PM CDT) Lactate, P 1.6 0.5 - 2.2 mmol/L 11/20/2023 5:26 PM CDT [facility] Blood (Blood, Venous) 11/20/2023 5:05 PM CDT 11/20/2023 5:07 PM CDT Laureen Chavez P.A.-C. LAB BLOOD NON A DD-ON [facility] [address] [place] [address], [facility] in [address] [address] * DX Chest AP or PA and [...] V Undetected Undetected 11/20/2023 2:58 PM CDT [facility] SARS Coronavirus 2, Source, Rapid Swab, Nasopharynx 11/20/2023 3:12 PM CDT [facility] Swab (Nasopharynx) 11/20/2023 3:10 PM CDT 11/20/2023 3:12 PM CDT Madeline Lee P.A.-C., M.S. LAB MICROBIOLOGY - GENERAL ORDERABLES Performing Organization Address [facility] de Phone Number [facility] [address] [place] [address], [facility] in [address] [address] * Influenza A/B and RSV, PCR, Point of Care (11/20/2023 3:10 PM CDT) Influenza A, POCT Negative Negative 11/20/2023 3:17 PM CDT [facility] Influenza B, POCT Negative Negative 11/20/2023 3:17 PM CDT [facility] Resp Syncytial Virus, POCT Negative Negative 11/20/2023 3:17 PM CDT [facility] Swab (Nasopharynx) 11/20/2023 3:10 PM CDT 11/20/2023 3:12 PM CDT Madeline Lee P.A.-C., M.S. LAB POCT ORDERABLES - DEVICE Performing Organization Address [facility] de Phone Number [facility] [address] [place] [address], [facility] in [address] [address] * SD UROFLOWMETRY CMPLX, SD MG PST VOID RESID US NON IMG (09/30/2023 3:00 PM CDT) Narrative Robe Cueva M.D. - 09/30/2023 3:00 PM CDT Robe Cueva M.D. ? 09/30/2023 ??3:18 PM URO Uroflow Performed by: Robe Cueva M.D. Authorized by: Robe Cueva M.D. ?? Care team members present 1. Shelia Crystal L.P.N. PROCEDURE DETAILS Calibrated electronic equipment used. Total [...] 0.30 <=7.2 ng/mL 09/30/2023 3:08 PM CDT [facility] Comment: ----ADDITIONAL INFORMATION---- The testing method is an electrochemiluminescence assay manufactured by [employer] and performed on the Modular or [employer]ad system. Values obtained with different assay methods or kits may be different and cannot be used interchangeably. Test results cannot be interpreted as absolute evidence for the presence or absence of malignant disease. Blood (Blood, Venous) 09/30/2023 2:08 PM CDT 09/30/2023 2:12 PM CDT Robe Cueva M.D. LAB BLOOD ADD-ON [facility] [address] [place], [place] [id number], [facility] in [address] [address] from Last 3 Months Advance Directives For more information, please contact: [phone] * DNR/DNI (Latest Code Status on File) [...] Due to: Patient not available Care Teams Otr Van Cdl Truck Driver Relationship Specialty Start Date End Date Elsewhere, Pcp PCP - General Internal Medicine 02/20/23
--- OUTSIDE RECORDS SUMMARY | 2023-12-09 10:54 | XMS_ITS ---
Author Organization [facility] Address [address] [place] [address] Care Team Providers Care Jacquard Loom Card Changer Name Role Phone Unavailable Unavailable Unavailable Surgery Details Not on file Complications Check Surgery Details section. Procedure Estimated Blood Loss Check Surgery Details section. Procedure Findings Check Surgery Details section. Procedure Specimens Taken Check Surgery Details section.
--- OUTSIDE RECORDS SUMMARY | 2023-12-09 10:55 | XMS_ITS | Encounter Summary ---
Author Organization [facility] Address [address] [place] [address] Care Team Providers Care Display Department Manager Name Role Phone Elsewhere, Pcp Primary Care Provider Unavailabl e Encounter Details Date Type Department Care Team (Latest Contact Info) Description 11/20/2023 Intake [facility] Social History Tobacco Use Types Packs/Day Years Used Date Smoking Tobacco: Former Cigarettes Alcohol Use Standard Drinks/Week Comments Yes 2 (1 standard drink = 0.6 oz pur e alcohol) daily [facility] Utilities Answer Date Recorded In the past 12 months has e [employer], gas, oil, or water [email or web address] threatened to shut off services in your [...] your living situation today? I have a [facility] place to live 11/20/2023 Sex and Gender Information Value Date Recorded Sex Assigned at Male 09/30/2023 2:25 PM CDT Gender Identity Male 09/30/2023 2:25 PM CDT Sexual Orientation Straight 09/30/2023 2: 25 PM CDT documented as of this encounter Plan of Treatment Not on file documented as of this encounter Visit Diagnoses Not on filedocumented in this encounter Additional Health Concerns Infection Onset Date Last Indicated Resolved Time COVID19 Pending 11/20/2023 11/20/2023 11/20/2023 3 :34 PM CDT Influenza 11/22/2023 11/22/2023 11/29/2023 5:57 AM CDT documented as of this encounter Care Teams Display Department Manager Relationship Specialty Start Date End Date Elsewhere, Pcp PCP - General Internal Medicine 02/20/23 documented as of this encounter
--- OUTSIDE RECORDS SUMMARY | 2023-12-09 10:55 | XMS_ITS | Encounter Summary ---
Author Organization [facility] Address [address] [place] [address] Care Team Providers Care Water Pump Installer Name Role Phone Elsewhere, Pcp Primary Care Provider Unavailabl e Reason for Referral * Outpatient (Routine) - Authorized Specialty Diagnoses / Procedures Referred By Zak giron Referred To Contact Diagnoses Benign Prostatic Hyperplasia Hypertrophy With Obstruction Procedures URO Uroflow Robe Cueva M.D. [address] [place] [phone] [facility] Referral ID Status Reason Start Date Expiration Date V isits Requested Visits Authorized [id number] Authorized 09/30/2023 09/29/2024 1 1 * Outpatient (Routine) - Authorized Specialty Diagnoses / Procedures Referred By Zak giron Referred To Contact Urology Robe Cueva M.D. [address] [place] [phone] [facility] Referral ID Status Reason Start Date Expiration Date V isits Requested Visits Authorized [id number] Authorized 09/30/2023 03/31/2025 1 1 Reason for Visit * Reason Comments Post Hospital Follow-up 3 month post HoL EP, with PSA * Outpatient (Routine) - Closed Specialty Diagnoses / Procedures Referred By Zak giron Referred To Contact UrologRobe Gary M.D. [address] [place] [phone] [facility] Referral ID Status Reason Start Date Expiration Date Visits Re quested Visits Authorized [id number] Closed 07/01/2023 12/30/2024 1 1 Encounter Details Date Type Department Care Team (Late st Contact Info) Description 09/30/2023 3:15 PM CDT Office Visit Department of Urology in [place], [place] [address] [place] [address] Robe Cueva M.D. [address] [place] [address] Benign Prostatic Hyperplasia Hypertrophy With Obstruction (Primary Dx) Discharge Disposition: Home or Self Care Social History Tobacco Use Types Packs/Day Years Used Date Smoking Tobacco: Former Cigarettes Alcohol Use Standard Drinks/Week Comments Yes 2 (1 standard drink = 0.6 oz pur e alcohol) daily [facility] Utilities Answer Date Recorded In the past 12 months has e [employer], gas, oil, or water [employer] threatened to shut off services in your home? No 09/30/2023 Humiliation, Afraid, Rape, and Kick questionnair e Answer Date Recorded Within the last year, have y ou been afraid of your partner or ex-partner? No 02/20/2023 Within the last year, have y ou been humiliated or emotionally abused in other ways by your partner or ex-partner? No Within the last year, have y ou been kicked, hit, slapped, or otherwise physically hurt by your partner or ex-partner? No 02/20/2023 Within the last year, have y ou been raped or forced to have any kind of sexual activity by your partner or ex-partner? No 02/20/2023 Overall Financial Resource Strain (CARDIA) Answe r [...] the money to buy more. Never true 09/30/19 Within the past 12 months, t he food you bought just didn't last and you didn't have money to get more. Never true 09/30/2023 PRAPARE - Transportation Answer Date Re corded In the past 12 months, has l ack of transportation kept you from medical appointments or from getting medications? No 09/09 In the past 12 months, has l ack of transportation kept you from meetings, work, or from getting things needed for daily living? No 09/30/2023 Nutrition Answer Date Recorded On average, how [...] your living situation today? I have a [facility] place to live 09/30/2023 Sex and Gender Information Value Date Recorded Sex Assigned at Male 09/30/2023 2:25 PM CDT Gender Identity Male 09/30/2023 2:25 PM CDT Sexual Orientation Straight 09/30/2023 2: 25 PM CDT documented as of this encounter Progress Notes * Robe Cueva M.D. - 09/30/2023 3:15 PM CDT SUBJECTIVE Chief Complaint HOLEP f/u HISTORY OF PRESENT ILLNESS Mr. Daily is a 78 y.o. year old male who presents after HoLEP. He was in urinary retention with a 50g prostate. He had 30 g removed. Pathology was negative for malignancy. He had bladder stones that were removed at the time of surgery as well. He notes no incontinence. Denies ever having incontinence after surgery. He is happy with the results. PVR is 1 mL today. I-PSS I-PSS Urinary Symptoms Score: 9 I-PSS Quality of Life Score: 1 PMH/PSH The following portions of the patient's history were reviewed and updated as appropriate: allergies, current medications, family history, medical history, social history, surgical history, and problem list. REVIEW OF SYSTEMS REVIEW OF SYSTEMS OBJECTIVE PHYSICAL EXAM Physical Exam LABS PSA 0.3 ASSESSMENT / PLAN #1 Benign Prostatic Hyperplasia Hypertrophy With Obstruction Patient is doing well. Will have him return in 1 year with PSA, IPSS and uroflow. The patient expressed understanding of the plan involved, and all questions were answered. Signed by: Robe Cueva M.D. 09/30/2023 3:15 PM CDT documented in this encounter Plan of Treatment Scheduled Orders Name Type Priority Associated Diagnoses Orde r Schedule URO Uroflow Procedure Routine Benign Prostatic Hyperplasia Hypertrophy With Obstruction Expected: 09/29/2024 (Approximate), Expires: 12/30/2024 PSA (Prostate-Specific Antigen), Diagnostic Lab Routine Benign Prostatic Hyperplasia Hypertrophy With Obstruction Expected: 09/29/2024, Expires: 12/30/2024 Scheduled Referrals Name Type Priority Associated Diagnoses Orde r Schedule Urology office visit (clinic) General Outpatient Referral Routine Expected: 09/29/2024 (Approximate), Expires: 12/30/2024 documented as of this encounter Visit Diagnoses Diagnosis Benign Prostatic Hyperplasia Hypertrophy With Obstruction- Primary documented in this encounter Care Teams Water Pump Installer Relationship Specialty Start Date End Date Elsewhere, Pcp PCP - General Internal Medicine 02/20/23 documented as of this encounter
--- OUTSIDE RECORDS SUMMARY | 2023-12-09 10:55 | XMS_ITS | Clinical Summary ---
Author Organization [facility] Address [place], [place] [address] Care Team Providers Care Welfare Aide Name Role Phone Robe Bejarano MD Primary Care Provider + Allergies Active Allergy Reactions Criticality Noted Date Comments Harpreet Inhibitors Cough 07/18/2006 Medications Medication Sig Dispensed Refills Start Date End Date Status FISH OIL 1,000 MG CAP ONE CAPSULE ONCE DAILY 0 10/23/2008 Active multivitamins-mineral s-lutein (CENTURY MATURE) Tab tablet Take 1 tablet by mouth once daily. 0 01/09/2011 Active vitamin e 200 unit capsule Take 1 capsule by mouth once daily. 0 01/09/2011 Active aspirin 81 mg tablet Take 1 tablet by mouth once daily with a meal. 0 Active Calcium-Cholecalcifer ol, D3, (CALCIUM 500+D) 500 mg(1,250mg) -400 unit chewable tablet Take 1 tablet by mouth once daily. 0 01/11/2014 Active ginkgo biloba extract 120 mg cap Take 1 Cap by mouth once daily. 0 01/11/2014 Active Cholecalciferol, Vitamin D3, (VITAMIN D-3) 5,000 unit tabIndications:Medica re annual wellness visit, subsequent Take 1 tablet by mouth once every other day. 0 11/25/2015 Active triamterene-hydrochlo rothiazide, 37.5-25 mg, (DYAZIDE) 37.5-25 mg capsuleIndications:Es sential hypertension Take 1 capsule by mouth every morning. 30 capsule 01/13/2018 Active metoprolol succinate SR (TOPROL XL) 200 mg Sustained-Release tabletIndications:Ess ential hypertension Take 1 tablet by mouth once daily. 30 tablet 01/13/2018 Active atorvastatin (LIPITOR) 40 mg tabletIndications:Hyp erlipidemia TAKE 1 TABLET EVERY DAY 90 tablet 01/25/2018 Active omeprazole (PRILOSEC) 20 mg Delayed-Release capsuleIndications:Ch ronic GERD TAKE 1 CAPSULE ONE TIME DAILY BEFORE A MEAL 90 capsule 1 03/17/2018 Active clopidogrel (PLAVIX) 75 mg tabletIndications:Cer ebrovascular accident (CVA), unspecified mechanism (HC) TAKE 1 TABLET EVERY DAY 90 tablet 03/17/2018 Active Active Problems Problem Noted Date Diagnosed Date History of total right hip arthroplasty 03/30/19 15 GOUT 07/18/2006 HYPERTENSION 07/18/2006 Other and unspecified hyperlipidemia 07/18/2006 Unspecified asthma(493.90) 07/18/2006 ALLERGIC RHINITIS 07/18/2006 Nocturnal Leg Cramps 07/18/2006 Resolved Problems Problem Noted Date Diagnosed Date Resolved Date Routine general medical exam ination at a health care facility 07/18/2006 12/04/2016 Overview (07/18/2006): Colonoscopy - normal - 09/12 - repeat in 10 years PSA - normal - 01/14 Immunizations Name Administration Dates Next Due Influenza, High-dose Inactivated 11/25/2015,090 11/2014,01/11/2014 Influenza, IIV3 (Age >=3 years) 01/13/20 13,01/04/2012,12/18/2010,2009,02/04/2007,01/30/2006 Influenza, Inactivated IIV3 (Age 65+ Years) Preserv Free 11/27/2017,12/04/2016 Pneumococcal Poly,23-Valent (Pneumovax) 11/27/2017,01/30/2006 Pneumococcal conj 13-Valent (Prevnar 13) 11/25/2015 Td (Age >=7 Years) 01/09/2003 Zoster (Zostavax-ZVL, live) 03/19/2012 Family History Medical History Relation Name Comments Cancer Father Lung Cancer-breast Sister Relation Name Status Comments Father Mother (Age 99) Sister Social History Tobacco Use Types Packs/Day Years Used Date Smoking Tobacco: Former Cigarettes Q uit: 03/11/1996 Smokeless Tobacco: Never Alcohol Use Standard Drinks/Week Comments Yes 17.5 (1 standard drink = 0.6 oz pure alcohol) PHQ-2 Answer Date Recorded PHQ-2 Score 0 05/10/2018 Sex and Gender Information Value Date Recorded Sex Assigned at Not on file Gender Identity Not on file Sexual Orientation Not on file Obstetrics History Last Filed Vital Signs Vital Sign Reading Time Taken Comments Blood Pressure 136/60 11/27/2017 10:44 AM CDT Pulse 60 11/27/2017 10:44 AM CDT Temperature 36.5 ??C (97.7 ??F) 04/23/2017 5:21 PM CS T Respiratory Rate 20 11/27/2017 10:4 4 AM CDT Oxygen Saturation 96% 04/01/2014 8:00 AM NET DEVELOPER SOFTWARE ENGINEER C Inhaled Oxygen Concentration - - Weight 107.3 kg (236 lb 9.6 oz) 018 10:44 AM CDT Height 170.2 cm (5' 7) 11/27/2017 10:4 4 AM CDT Body Mass Index 37.06 11/27/2017 10:44 AM CDT Plan of Treatment Health Maintenance Due Date Last Done Comments Tdap 07/09/1956 Zoster (shingles) series for age 50+ (2 of 3) 05/14/2012 03/19/2012 Tetanus booster 01/09/2013 01/09/2003 RSV vaccine for adults or (1 - 1-dose 75+ series) 07/09/2018 BMI (ht and wt on same day) for age 18+ 11/27/2018 11/27/2017, 04/04/2017, 12/04/2016, Additional history exists Depression screening for age 12+ 11/27/2018 11/27/2017, 12/04/2016, 11/25/2015 COVID-19 vaccine series ( season) 2023 Influenza for age 65+ 11/10/2023 11/27/2017 , 12/04/2016, 11/25/2015, Additional history exists Pneumococcal series for age 65+ Completed 11/27/2017, 11/25/2015, 01/30/2006 Medical Devices Implanted Type Area Technology Trainer Device Identifier Shelf Expiration Date Model / Serial / Lot [id number] - [id number] Implanted:Qty: 1 on 03/30/2014 by Earle Irizarry MD at [facility] Right: Hip DEPUY 01/09/2024 [id number] / / [id number] Description:PINNACLE Griptio n Acetabular shell sector [id number] - [id number] Implanted:Qty: 1 on 03/30/2014 by Earle Irizarry MD at [facility] Right: Hip DEPUY 01/08/2019 [id number] / / [id number] Description:PINNACLE ALTRIX polyethylene acetabular liner [id number] - [id number] Implanted:Qty: 1 on 03/30/2014 by Earle Irizarry MD at [facility] Right: Hip DEPUY 10/09/2023 [id number] / / [id number] Description:APEX Hole elimin ator-PS [id number] - [id number] Implanted:Qty: 1 on 03/30/2014 by Earle Irizarry MD at [facility] Right: Hip DEPUY 01/08/2019 [id number] / / [id number] Description:CORAIL hip syste m cementless femoral stem KLA size 15 high offset collar [id number] - [id number] Implanted:Qty: 1 on 03/30/2014 by Earle Irizarry MD at [facility] Right: Hip DEPUY 05/08/2018 [id number] / / [id number] Description:M-Spec metal fem oral head Care Teams Welfare Aide Relationship Specialty Start Date End Date Robe Bejarano MD [address] [place] [address] PCP - General 01/30/06
--- OUTSIDE RECORDS SUMMARY | 2023-12-09 10:55 | XMS_ITS | Encounter Summary ---
Author Organization [facility] Address [address] [place] [address] Care Team Providers Care Care Manager Name Role Phone Elsewhere, Pcp Primary Care Provider Unavailabl e Encounter Details Date Type Department Care Team (Late st Contact Info) Description 11/20/2023 9:40 PM CDT Ancillary Procedure Department of Nursing Social History Tobacco Use Types Packs/Day Years Used Date Smoking Tobacco: Former Cigarettes Alcohol Use Standard Drinks/Week Comments Yes 2 (1 standard drink = 0.6 oz pur e alcohol) daily [facility] Utilities Answer Date Recorded In the past 12 months has [facility] [employer], gas, oil, or water [employer] threatened to shut off services in your [...] your living situation today? I have a [facility] place to live 11/20/2023 Sex and Gender Information Value Date Recorded Sex Assigned at Male 09/30/2023 2:25 PM CDT Gender Identity Male 09/30/2023 2:25 PM CDT Sexual Orientation Straight 09/30/2023 2: 25 PM CDT documented as of this encounter Plan of Treatment Not on file documented as of this encounter Procedures Procedure Name Priority Date/Time Associated Diagnosis Comments NURSING IMAGE EXAM Routine 11/20/2023 9: 38 PM CDT documented in this encounter Results * Coccyx-Nursing Image Exam (11/20/2023 9:38 PM CDT) 11/20/2023 9:36 PM CDT Narrative IIMS - 11/20/2023 9:38 PM CDT This order has been created and auto-finalized to support the import of images acquired without order. The clinical documentation to support these images can be found on the encounter that produced images. Provider Not In System IMG NON RAD IMAGI NG PROCEDURES IIMS NA documented in this encounter Visit Diagnoses Not on filedocumented in this encounter Care Teams Care Manager Relationship Specialty Start Date End Date Elsewhere, Pcp PCP - General Internal Medicine 02/20/23 documented as of this encounter
--- OUTSIDE RECORDS SUMMARY | 2023-12-09 10:55 | XMS_ITS | Encounter Summary ---
Author Organization [facility] Address [address] [place] [address] Care Team Providers Care Doctor Of Pharmacy Name Role Phone Elsewhere, Pcp Primary Care Provider Unavailabl e Reason for Visit * Reason Comments Cough States SOB, producti ve cough, weakness starting Saturday. Fell on Saturday in bathroom-legs got weak. Encounter Details Date Type Department Care Team ([facility] st Contact Info) Description 11/20/2023 3:04 PM CDT - 11/20/2023 8:47 PM CDT Emergency [place] [facility] [address] [place] [phone] Madeline Lee P.A.-Anamaria., M.S. [address] [place] [phone] Pneumonia (Primary Dx); Hypokalemia; Hyponatremia; Weakness General Discharge Disposition: Acute Care Hospital Social History Tobacco Use Types Packs/Day Years Used Date Smoking Tobacco: Former Cigarettes Alcohol Use Standard Drinks/Week Comments Yes 2 (1 standard drink = 0.6 oz pur e alcohol) daily [facility] Utilities Answer Date Recorded In the past 12 months has e [employer] gas, oil, or water [employer] threatened to shut off services in your [...] your living situation today? I have a [facility] place to live 11/20/2023 Sex and Gender Information Value Date Recorded Sex Assigned at Male 09/30/2023 2:25 PM CDT Gender Identity Male 09/30/2023 2:25 PM CDT Sexual Orientation Straight 09/30/2023 2: 25 PM CDT documented as of this encounter Last Filed Vital Signs Vital Sign Reading Time Taken Comments Blood Pressure 138/63 11/20/2023 8:15 PM CDT Pulse 85 11/20/2023 8:15 PM CDT Temperature 37.3 ??C (99.1 ??F) 11/20/2023 3:05 PM CD T Respiratory Rate 20 11/20/2023 8:15 PM CDT Oxygen Saturation 97% 11/20/2023 8:15 PM CDT Inhaled Oxygen Concentration - - Weight 101 kg (222 lb 0.1 oz) 11/20/2023 3:04 PM CDT Height - - Body Mass Index 31.85 07/01/2023 9:04 AM CDT documented in this encounter Medications at Time [...] doses Indications: Influenza. 7 capsule 11/23/2023 11/27/2023 triamterene-hydroCHLO ROthiazide (DYAZIDE) 37.5-25 mg per capsule Take 1 capsule by mouth every morning. 01/13/2018 11/23/2023 documented as of this encounter ED Notes * Madeline Lee P.A.-C., M.S. - 11/20/2023 4:21 PM CDT I personally performed the substantive portion of this service which was medical decision-making. Pertinent MDM details included below. Refer to the CONTOUR GRINDER/PA's note for additional details. In short, Kaushik Daily is a 78 y.o. male with a history of cerebral infarction, left arm weakness, HTN, who presents to the ED with complaints of cough, weakness. On arrival, patient is hemodynamically stable, any accurate initial oximetry reading reads at 89%, but then with accurate readings his oxygen is 92-94%. Differential includes, but not limited to pneumonia, COVID, weakness. Plan for labs, x-ray, reassessment. ED Course: ED Course as of 11/21/23 0707 SatNov 20, 2023 1539 SARS CoV-2, PCR, Rapid, V: Undetected 1616 DX Chest AP or PA and Lateral 2 Views IMPRESSION: Normal chest 1721 Leukocytes(!): 12.8 1721 Hemoglobin(!): 11.0 1728 Lactate: 1.6 1730 Potassium, P(!): 3.4 1730 Sodium, P(!): 126 1730 Creatinine: 1.[address] Chest with IV Contrast IMPRESSION: Multifocal bilateral pneumonia, predominantly in the lower lobes. No acute findings in the abdomen or pelvis. [address] Ma. Final Diagnoses: as of 11/21/23 0707 Pneumonia Hypokalemia Hyponatremia Weakness General Viral syndrome negative. Chest x-ray unremarkable. Labs with leukocytosis with left shift, lactate is normal. Mild hyponatremia which is chronic and mild hypokalemia which is new at 3.4. CT chest abdomen pelvis shows multifocal bilateral pneumonia, predominantly in the lower lobes. Started on ceftriaxone and azithromycin. Given significant weakness, will plan for admission. Unfortunately no beds here in [place]. Discussed with hospitalist at [facility], Dr. Peguero, who will admit to [facility]. Disposition: Transfer to [facility] Madeline Lee P.A.-C., M.S. 11/20/23 1855 Madeline Lee P.A.-C., M.S. 11/21/23 0707 * Laureen Chavez P.A.-C. - 11/20/2023 3:52 PM CDT SUBJECTIVE CHIEF COMPLAINT/REASON FOR VISIT Cough (States SOB, productive cough, weakness starting Saturday. Fell on Saturday in bathroom-legs got weak. ) HISTORY OF PRESENT ILLNESS History provided by: patient Attending: Madeline Lee PA-C The patient is a 78 y.o. male with a history of cerebral infarct, hyperlipidemia, hypertension, abnormalities of gait, history of falling who presents to the Emergency Department for evaluation of cough and shortness of breath. He is accompanied by his daughter Payton. He presents in the setting of worsening shortness of breath, worsening cough with green sputum production, diarrhea, and increased weakness that has been present the last week. His has similar symptoms coughing at home but has otherwise has been well. He reports that two days ago, while he was in the restroom, he felt weakand knees buckled underneath him. He was able to land using a step stool. He is certain he did not his head or lose consciousness. He did not have any preceding symptoms such as chest pain or lightheadedness prior to the fall. He does have abdominal pain that he noticed worsens with cough. He otherwise denies headaches, dizziness, vision changes, rhinorrhea, congestion. He denies chest pain, nausea, vomiting, urinary changes. MEDICAL HISTORY Past Medical History: Diagnosis Date BenignProstatic Hyperplasia Localized Gastroesophageal Reflux Disease NOS Gout Hyperlipidemia Hypertension NOS Stroke (HCC) Patient Active Problem List Diagnosis Date Noted Benign Prostatic Hyperplasia Hypertrophy With Obstruction 03/29/2023 Numbness Lower Extremity 02/21/2023 Weakness Leg Right 02/21/2023 Infection Wound Postoperative Initial 02/20/2023 Hyperlipidemia 02/20/2023 Hypertension Essential Primary 02/20/2023 Weakness General 02/20/2023 Stroke Cerebrovascular Accident Personal History 02/20/2023 History Of Falling 02/20/2023 Weakness Leg 02/20/2023 Deficit Neurologic 02/20/2023 Retention Urinary 02/20/2023 Unspecified Abnormalities Of Gait And Mobility Weakness Arm Left Other Sequelae Of Cerebral Infarction Infarction Cerebral (HCC) SURGICAL HISTORY Past Surgical History: Procedure Laterality Date CYSTOLITHOPAXY N/A 07/01/2023 Procedure: CYSTOLITHOLAPAXY; Surgeon: Robe Cueva M.D.; Location: [facility] OR ENUCLEATION HOLMIUM LASER PROSTATE (HOLEP) < 70 GRAMS N/A 07/01/2023 Procedure: ENUCLEATION HOLMIUM LASER PROSTATE < 70 GRAMS (50 g); Surgeon: Robe Cueva M.D.; Location: [facility] OR TOTAL HIP ARTHROPLASTY ALLERGIES Allergies Allergen Reactions Harpreet Inhibitors Cough REVIEW OF SYSTEMS Pertinent items are noted in HPI; all other review of systems was negative. OBJECTIVE INITIAL VITAL SIGNS Initial Vitals Temperature 11/20/23 1505 37.3 ??C Pulse Rate 11/20/23 1505 90 Heart Rate -- Resp Rate 11/20/23 1505 22 Blood Pressure 11/20/23 1505 (!) 142/93 SpO2 11/20/23 1500 (!) 89 % Pain Score 11/20/23 1523 0 - No pain PHYSICAL EXAMINATION Constitutional: Well-appearing, in no acute distress. HEENT: Atraumatic. Oral mucosa is moist. Neck: Normal range of motion. Neck is supple. Cardiac: Regular rate and rhythm. No murmurs, gallops or rubs. Pulmonology: No respiratory distress. No increased respiratory effort. He was coughing multiple times on exam. Abdomen: Soft abdomen. No distention or guarding. Ecchymosis noted to the lateral aspect of his torso. Slight tenderness with palpation to the RUQ abdomen. MSK: Normal range of motion. No lower extremity edema. Integumentary: No rashes noted. Warm and dry to touch. Neuro: Grossly intact. Psych: Normal mood. INTERVENTIONS Medications sodium chloride 0.9 % injection 2-10 mL (has no administration in time range) azithromycin 500 mg in NaCl 0.9% IVPB (Zithromax) (500 mg intravenous New Bag 11/20/231818) sodium chloride 0.9 % injection 10 mL (10 mL intravenous Given 11/20/231732) sodium chloride 0.9 % flush 100-200 mL (100 mL intravenous Given 11/20/231732) iohexoL 300 mg iodine/mL solution 1-200 mL (Omnipaque) (140 mL intravenous Given 11/20/231733) cefTRIAXone injection 2 g (Rocephin) (2 g intravenous Given 11/20/231818) codeine-guaiFENesin liquid 5 mL (Robitussin AC) (5 mL oral Given 11/20/231818) potassium chloride ER tablet 40 mEq (40 mEq oral Given 11/20/231901) DIAGNOSTICS LABS: Labs Reviewed CBC WITH DIFFERENTIAL, B - Abnormal Result Value Hemoglobin 11.0 (*) Hematocrit 32.9 (*) Erythrocytes 3.94 (*) MCV 83.5 RBC Distrib Width 14.7 (*) Platelet Count 321 (*) Leukocytes 12.8 (*) Neutrophils 11.16 (*) Lymphocytes 0.71 (*) Monocytes 0.81 Eosinophils 0.07 Basophils <0.04 COMPREHENSIVE METABOLIC PANEL, S/P - Abnormal Potassium, P 3.4 (*) Sodium, P 126 (*) Chloride, P 87 (*) Bicarbonate, P 26 Anion Gap, P 13 BUN (Blood Urea Nitrogen), P 18 Creatinine 1.03 Estimated GFR (eGFR) 73 Calcium, Total, P 9.3 Glucose, P 123 Protein, Total, P 6.9 Albumin, P 3.5 Aspartate Aminotransferase (AST), P 119 (*) Alkaline Phosphatase, P 115 Alanine Aminotransferase (ALT), P 91 (*) Bilirubin, Total, P 0.8 SARS CORONAVIRUS 2, PCR RAPID, V SARS CoV-2, PCR, Rapid, V Undetected SARS Coronavirus 2, Source, Rapid Swab, Nasopharynx BACTERIA / MARY CULTURE, BLOOD Narrative: Specimen Information: Specimen ID: [id number] Specimen Source: Blood, Peripheral Draw Specimen Comment: Specimen Source Site: Blood Specimen Collection Start Date: 11/20/2023 5:42 PM Specimen Received Date: 11/20/2023 5:42 PM Specimen ID: [id number] Specimen Source: Blood, Peripheral Draw Specimen Comment: Specimen Source Site: Blood Specimen Collection Start Date: 11/20/2023 5:42 PM Specimen Received Date: 11/20/2023 5:42 PM Specimen ID: [id number] Specimen Source: Blood, Peripheral Draw Specimen Comment: Specimen Source Site: Blood Specimen Collection Start Date: 11/20/2023 5:42 PM Specimen Received Date: 11/20/2023 5:42 PM LACTATE FOR SEPSIS WITH REFLEX Lactate, P 1.6 URINALYSIS WITH MICROSCOPIC IF INDICATED, U INFLUENZA A, B, RSV, PCR, POCT Influenza A, POCT Negative Influenza B, POCT Negative Resp Syncytial Virus, POCT Negative ECG: ECG 12 Lead Result Date: 11/20/2023 Sinus rhythm Premature atrial complexes Low voltage QRS Nonspecific ST and T wave abnormality When compared with ECG of 20-Feb-2023 14:21, Premature ventricular complexes are no longer present QT has shortened Reviewed by JOSE Valencia RADIOLOGY: CT Abdomen Pelvis with IV Contrast Final Result Multifocal bilateral pneumonia, predominantly in the lower lobes. No acute findings in the abdomen or pelvis. CT Chest with IV Contrast Final Result Multifocal bilateral pneumonia, predominantly in the lower lobes. No acute findings in the abdomen or pelvis. DX Chest AP or PA and Lateral 2 Views Final Result Normal chest ASSESSMENT / PLAN The patient is a 78 y.o. male with a history significant for cerebral infarct, hyperlipidemia, hypertension, abnormalities of gait, history of falling who presents to the Emergency Department for evaluation of weakness and shortness of breath. On arrival to the ED, the patient is vitally stable andin no acute distress. On my exam, he was largely unremarkable exam. He did have a little bit of ecchymosis to the lateral aspect of his right torso with slight tenderness with palpation. He is coughing numerous times on exam. Differential diagnosis includes but is not limited to pneumonia, viral syndrome, electrolyte abnormalities, anemia. I am suspicious for a pulmonary etiology given the patient's clinical picture as well as history. Obtained a chest x-ray which was largely unremarkable but given the patient's exam, we ended up stating CT chest with IV contrast as well as CT abdomen pelvis with IV contrast. CT abdomen pelvis with IV contrast was unremarkable for intra-abdominal injury. On CT chest, he did have bilateral multifocal lower lung pneumonia. In the setting of pneumonia and weakness, we will be admitting him to an inpatient bed for further management and care. Initiated IV antibiotics including ceftriaxone and azithromycin. Hemoglobin is 11.0 but he does appear chronically anemic at baseline. Elevated blood cell count of 12.8. Calcium 3.4, this was replenished here in the emergency department. Sodium is 126 although he is hyponatremicat baseline. Lactate is 1.6. Viral swab is negative. Blood cultures obtained and are pending. A medical surgical bed will be sought out for him. Dr. Ma, hospitalist, is the accepting physician and patient will be transferred to [facility] for further management. He is hemodynamically stable. Of note, his oxygen saturation is not the most accurate. He was not getting a good pleth reading although once a good pleth reading was obtained, his oxygen saturation was above 96 percent. DIAGNOSIS Diagnosis Plan 1. Pneumonia 2. Hypokalemia 3. Hyponatremia 4. Weakness General Laureen Chavez P.A.-C. 11/20/231920 documented in this encounter Plan of Treatment Not on file documented as of this encounter Procedures Procedure Name Priority Date/Time Associated Diagnosis Comments URINALYSIS WITH MICROSCOPIC IF INDICATED, U STAT 11/20/2023 7:27 PM CDT HC URINALYSIS AUTO W MICRO STAT 11/20/2023 7:[address] ABDOMEN [...] WITH REFLEX STAT 11/20/2023 5:05 PM CDT CBC WITH DIFFERENTIAL, B STAT 11/20/2023 5:05 PM CDT COMPREHENSIVE METABOLIC PANEL, S/P STAT 11/20/2023 5:05 PM CDT DX CHEST AP OR PA AND LATERAL 2 VIEWS RAD - Semiurgent (Fast; most ED patients; some inpatients) 11/20/2023 4:06 PM CDT SARS CORONAVIRUS 2, PCR RAPID, V STAT 11/20/2023 3:10 PM CDT INFLUENZA A, B, RSV, PCR, POCT STAT 11/20/2023 3:10 PM CDT documented in this encounter Results * Microscopic Manual (11/20/2023 7:27 PM CDT) [...] Laureen Chavez P.A.-C. LAB URINE ORDER [facility] [address] [place] [phone], [facility] in [address] [address] * (ABNORMAL) Urinalysis with Microscopic if Indicated [...] 8.0 11/20/2023 7:32 PM CDT [facility] Specific [place] 1.010 1.001 - 1.035 11/20/2023 7:32 PM CDT [facility] Urobilinogen 1.0 0.2 - 1.0 mg/dL 11/20/2023 7:32 PM CDT [facility] Urine (Urine, Midstream) 11/20/2023 7:27 PM CDT 11/20/2023 7:29 PM CDT Laureen Chavez P.A.-C. LAB URINE ORDER [facility] [address] [place] [address], [facility] in [place] [address] * CT Abdomen Pelvis with IV Contrast [...] FINDINGS: Chest: Moderate multifocal patchy consolidative, and nrfp-pm-hpkybrjsggboiq in the bilateral lower lobes, slightly greater [...] the abdomen or pelvis. Laureen Chavez P.A.-C. IMG CT PROCEDUR ES * Bacteria / Mary Culture, Blood #1 (11/20/2023 5:42 PM CDT) Bacteria/Urszula da Culture, Blood No growth after 5 day/s of incubation. 11/25/2023 6:05 PM CDT [facility] Blood (Blood, Peripheral Draw) 11/20/2023 5:42 PM CDT 11/20/2023 5:42 PM CDT Comment:Specimen Source Site : Blood Laureen Chavez P.A.-C. LAB MICROBIOLOG Y - GENERAL ORDERABLES [facility] [address] [place] [phone], [facility] in [address] [address] * CT Chest with IV Contrast (11/20/2023 [...] FINDINGS: Chest: Moderate multifocal patchy consolidative, and [id number]-nl-xzulharlmgwwdy in the bilateral lower lobes, slightly greater [...] in the abdomen or pelvis. Laureen Chavez P.A.-Anamaria. [facility] CT PROCEDUR ES * ECG 12 Lead (11/20/2023 5:26 PM CDT) Ventricular Rate ECG/Min 89 BPM MUSE DE Interval 182 ms MUSE QRSD Interval 94 ms MUSE QT Interval 384 ms MUSE QTC Interval 467 ms MUSE P [place] 17 degrees MUSE R [place] -13 degrees MUSE T Wave [place] 35 degrees MUSE 11/20/2023 5:26 PM CDT 11/20/2023 5:33 PM CDT Impressions MUSE - 11/20/2023 5:33 PM CDT Sinus rhythm Premature atrial complexes Low voltage QRS Nonspecific ST and T wave abnormality When compared with ECG of 20-Feb-2023 14:21, Premature ventricular complexes are no longer present QT has shortened Reviewed by JOSE Valencia Narrative Procedure Note Zaid Maria M.D., Ph.D. - 11/20/2023 IMPRESSION: Sinus rhythm Premature atrial complexes Low voltage QRS Nonspecific ST and T wave abnormality When compared with ECG of 20-Feb-2023 14:21, Premature ventricular complexes are no longer present QT has shortened Reviewed by JOSE Valencia Laureen Chavez P.A.-C. ECG ORDERABLES Performing Organization Address City/[facility]/ZIP Co de Phone Number MUSE NA * Lactate for Sepsis with Reflex (11/20/2023 5:05 PM CDT) Lactate, P 1.6 0.5 - 2.2 mmol/L 11/20/2023 5:26 PM CDT [facility] Blood (Blood, Venous) 11/20/2023 5:05 PM CDT 11/20/2023 5:07 PM CDT Laureen Chavez P.A.-C. LAB BLOOD NON A DD-ON Performing Organization Address City/[facility] Co de Phone Number [facility] [address] [place] [address], [facility] [place] [address] * (ABNORMAL) Comprehensive Metabolic Panel (11/20/2023 5:05 PM CDT) Potassium, P 3.4(L) 3.6 - 5.2 mmol/L 11/20/2023 5:29 PM CDT [facility] Sodium, P 126(L) 135 - 145 mmol/L 11/20/2023 5:29 PM CDT [facility] Chloride, P 87(L) 98 - 107 mmol/L 11/20/2023 5:29 PM CDT [facility] Bicarbonate, P 26 22 - 29 mmol/L 11/20/2023 5:29 PM CDT [facility] Anion Gap, P 13 7 - 15 11/20/2023 5:29 PM CDT [facility] BUN (Blood Urea Nitrogen), P 18 8 - 24 mg/dL 11/20/2023 5:29 PM CDT [facility] Creatinine 1.03 0.74 - 1.35 mg/dL 11/20/2023 5:29 PM CDT [facility] Estimated GFR (eGFR) 73 >=60 mL/min/BS A 11/20/2023 5:29 PM CDT [facility] Comment: Estimated GFR calculated using the 2020 CKD_EPI creatinine equation. Calcium, Total, P 9.3 8.8 - 10.2 mg/dL 11/20/2023 5:29 PM CDT [facility] Glucose, P 123 70 - 140 mg/dL 11/20/2023 5:29 PM CDT [facility] Protein, Total, P 6.9 6.3 - 7.9 g/dL 11/20/2023 5:29 PM CDT [facility] Albumin, P 3.5 3.5 - 5.0 g/dL 11/20/2023 5:29 PM CDT [facility] Aspartate Aminotransferase (AST), P 119(H) 8 - 48 U/L 11/20/2023 5:29 PM CDT [facility] Alkaline Phosphatase, P 115 40 - 129 U/L 11/20/2023 5:29 PM CDT [facility] Alanine Aminotransferase (ALT), P 91(H) 7 - 55 U/L 11/20/2023 5:29 PM CDT [facility] Bilirubin, Total, P 0.8 0.0 - 1.2 mg/dL 11/20/2023 5:29 PM CDT [facility] Blood (Blood, Venous) 11/20/2023 5:05 PM CDT 11/20/2023 5:07 PM CDT Laureen Chavez P.A.-C. LAB BLOOD ADD-O N [facility] [address] [place] [phone], [facility] in [address] [address] * (ABNORMAL) CBC with Differential, Blood (11/20/2023 5:05 PM CDT) Hemoglobin 11.0(L) 13.2 - 16.6 g/dL 11/20/2023 5:18 PM CDT [facility] Hematocrit 32.9(L) 38.3 - 48.6 % 11/20/2023 5:18 PM CDT [facility] Erythrocytes 3.94(L) 4.35 - 5.65 x10(12)/L 11/20/2023 5:18 PM CDT [facility] MCV 83.5 78.2 - 97.9 fL 11/20/2023 5:18 PM CDT [facility] RBC Distrib Width 14.7(H) 11.8 - 14.5 % 11/20/2023 5:18 PM CDT [facility] Platelet Count 321(H) 135 - 317 x10(9)/L 11/20/2023 5:18 PM CDT [facility] Leukocytes 12.8(H) 3.4 - 9.6 x10(9)/L 11/20/2023 5:18 PM CDT [facility] Neutrophils 11.16(H) 1.56 - 6.45 x10(9)/L 11/20/2023 5:18 PM CDT [facility] Lymphocytes 0.71(L) 0.95 - 3.07 x10(9)/L 11/20/2023 5:18 PM CDT [facility] Monocytes 0.81 0.26 - 0.81 x10(9)/L 11/20/2023 5:18 PM CDT [facility] Eosinophils 0.07 0.03 - 0.48 x10(9)/L 11/20/2023 5:18 PM CDT [facility] Basophils <0.04 0.01 - 0.08 x10(9)/L 11/20/2023 5:18 PM CDT [facility] Blood (Blood, Venous) 11/20/2023 5:05 PM CDT 11/20/2023 5:07 PM CDT Laureen Chavez P.A.-C. LAB BLOOD ADD-O N [facility] [address] [place] [phone], [facility] in [address] [address] * DX Chest AP or PA and [...] P.A.-C., M.S. IMG DIAGNOSTIC IMAGING PROCEDURES * Influenza A/B and RSV, PCR, Point of Care (11/20/2023 3:10 PM CDT) Pathologist [facility] Influenza A, POCT Negative Negative 11/20/2023 3:17 PM CDT [facility] Influenza B, POCT Negative Negative 11/20/2023 3:17 PM CDT [facility] Resp Syncytial Virus, POCT Negative Negative 11/20/2023 3:17 PM CDT [facility] Swab (Nasopharynx) 11/20/2023 3:10 PM CDT 11/20/2023 3:12 PM CDT Madeline Lee P.A.-C., M.S. LAB POCT ORDERABLES - DEVICE [facility] [address] [place] [phone], [facility] [place] [address] [place] [phone] * SARS Coronavirus 2, PCR Rapid Symptomatic (11/20/2023 3:10 PM CDT) SARS CoV-2, PCR, Rapid, V Undetected Undetected 11/20/2023 2:58 PM CDT CA SARS Coronavirus 2, Source, Rapid Swab, Nasopharynx 11/20/2023 3:12 PM CDT CA Swab (Nasopharynx) 11/20/2023 3:10 PM CDT 11/20/2023 3:12 PM CDT Madeline Lee P.A.-C., M.S. LAB MICROBIOLOGY - GENERAL ORDERABLES [facility] [address] [place] [phone], [facility] in [address] [address] documented in this encounter Visit Diagnoses Diagnosis Pneumonia- Primary Hypokalemia Hyponatremia Weakness General documented in this encounter Administered Medications Inactive Administered Medications - up to 3 most recent administrations Medication Order MAR Action Action Date Dose Rate Site azithromycin 500 mg in NaCl 0.9% IVPB (Zithromax) 500 mg, intravenous, at 250 mL/hr, Administer over 60 Minutes, Once, On Sat11/20/23 at 1805, For 1 dose, Use adapter to dilute and transfer medication into diluent bag, Drug Monitoring Program: Pharmacist to adjust medication dosing based on indication and drug clearance factors., Indications: Respiratory tract infection, community acquired New Bag 11/20/2023 6:19 PM CDT 500 mg 250 mL/hr cefTRIAXone injection 2 g (Rocephin) 2 g, intravenous, Once, On Sat11/20/23 at 1805, For 1 dose, If needed, reconstitute vial per package insert instructions. See IVAG for administration guidelines., Drug Monitoring Program: Pharmacist to adjust medication dosing based on indication and drug clearance factors., Indications: Respiratory tract infection, community acquired Given 11/20/2023 6:19 PM CDT 2 g codeine-guaiFENesin liquid 5 mL (Robitussin AC) 5 mL, oral, Once, On Sat11/20/23 at 1805, For 1 dose Given 11/20/2023 6:19 PM CDT 5 mL iohexoL 300 mg iodine/mL solution 1-200 mL (Omnipaque) 1-200 mL, intravenous, Once in imaging, contrast, Starting on Sat11/20/23 at 1716, For 1 dose Given 11/20/2023 5:34 PM CDT 140 mL Right Forearm potassium chloride ER tablet 40 mEq 40 mEq, oral, Once, On Sat11/20/23 at 1852, For 1 dose, Swallow whole. Do NOT crush, chew, or split tablet. Given 11/20/2023 7:02 PM CDT 40 mEq sodium chloride 0.9 % flush 100-200 mL 100-200 mL, intravenous, Once in imaging, line care, Starting on Sat11/20/23 at 1716, For 1 dose Given 11/20/2023 5:33 PM CDT 100 mL Right Forearm sodium chloride 0.9 % injection 10 mL 10 mL, intravenous, Once in imaging, line care, Starting on Sat11/20/23 at 1716, For 1 dose Given 11/20/2023 5:33 PM CDT 10 mL Right Forearm sodium chloride 0.9 % injection 2-10 mL 2-10 mL, intravenous, As needed, line care, Starting on Sat11/20/23 at 1616 documented in this encounter Active and Recently Administered Medications Times are shown in CDT. Scheduled Medication Order 11/18/2023 11/19/2023 11/20/2023 azithromycin 500 mg in NaCl 0.9% IVPB (Zithromax) (COMPLETED) 500 mg, intravenous, at 250 mL/hr, Administer over 60 Minutes, Once, On Sat11/20/23 at 1805, For 1 dose, Use adapter to dilute and transfer medication into diluent bag, Drug Monitoring Program: Pharmacist to adjust medication dosing based on indication and drug clearance factors., Indications: Respiratory tract infection, community acquired 1818 (New Bag - Prov ider: Lilia Nguyen R.N.)1934 (Stopped - Provider: Lilia Nguyen R.N.) cefTRIAXone injection 2 g (Rocephin) (COMPLETED) 2 g, intravenous, Once, On Sat11/20/23 at 1805, For 1 dose, If needed, reconstitute vial per package insert instructions. See IVAG for administration guidelines., Drug Monitoring Program: Pharmacist to adjust medication dosing based on indication and drug clearance factors., Indications: Respiratory tract infection, community acquired 1818 (Given - Provid er: iLlia Nguyen, R.N.) codeine-guaiFENesin liquid 5 mL (Robitussin AC) (COMPLETED) 5 mL, oral, Once, On Sat11/20/23 at 1805, For 1 dose 1818 (Given - Provid er: Lilia Nguyen, R.N.) potassium chloride ER tablet 40 mEq (COMPLETED) 40 mEq, oral, Once, On Sat11/20/23 at 1852, For 1 dose, Swallow whole. Do NOT crush, chew, or split tablet. 1901 (Given - Provid er: Venice Gan, R.N.) PRN Medication Order 11/18/2023 11/19/2023 11/20/2023 iohexoL 300 mg iodine/mL solution 1-200 mL (Omnipaque) (COMPLETED) 1-200 mL, intravenous, Once in imaging, contrast, Starting on Sat11/20/23 at 1716, For 1 dose 173 (Given - Provid er: Fabiana Heller, R.T.(R)) sodium chloride 0.9 % flush 100-200 mL (COMPLETED) 100-200 mL, intravenous, Once in imaging, line care, Starting on Sat11/20/23 at 1716, For 1 dose 173 (Given - Provid er: Fabiana Heller, R.T.(R)) sodium chloride 0.9 % injection 10 mL (COMPLETED) 10 mL, intravenous, Once in imaging, line care, Starting on Sat11/20/23 at 1716, For 1 dose 173 (Given - Provid er: Fabiana Heller, R.T.(R)) sodium chloride 0.9 % injection 2-10 mL(Linked Group 1) 2-10 mL, intravenous, As needed, line care, Starting on Sat11/20/23 at 1616 Linked Groups Order Group 1: Place peripheral IV: No upper extremity site restrictions (COMPLETED) Upper extremity site restriction: No upper extremity site restrictions, Quantity of PIVs requested: One, STAT, Once, On Sat11/20/23 at 1617, For 1 occurrence And sodium chloride 0.9 % injection 2-10 mLJump to med 2-10 mL, intravenous, As needed, line care, Starting on Sat11/20/23 at 1616 documented in this encounter Additional Health Concerns Infection Onset Date Last Indicated Resolved Time COVID19 Pending 11/20/2023 11/20/2023 11/20/2023 3 :34 PM CDT documented as of this encounter Care Teams Doctor Of Pharmacy Relationship Specialty Start Date End Date Elsewhere, Pcp PCP - General Internal Medicine 02/20/23 documented as of this encounter
--- OUTSIDE RECORDS SUMMARY | 2023-12-09 10:55 | XMS_ITS | Encounter Summary ---
Author Organization [facility] Address [address] [place] [address] Care Team Providers Care Revenue Liaison Name Role Phone Elsewhere, Pcp Primary Care Provider Unavailabl e Encounter Details Date Type Department Care Team (Latest Contact Info) Description 09/30/2023 1:56 PM CDT - 09/30/2023 11:59 PM CDT Hospital Encounter Department of Laboratory Medicine in [place], [place] [address] [place] [phone] Rboe Cueva M.D. [address] [place] [phone] Benign Prostatic Hyperplasia Hypertrophy With Obstruction Discharge Disposition: Home or Self Care Social History Tobacco Use Types Packs/Day Years Used Date Smoking Tobacco: Former Cigarettes Alcohol Use Standard Drinks/Week Comments Yes 2 (1 standard drink = 0.6 oz pur e alcohol) daily [facility] Utilities Answer Date Recorded In the past 12 months has e [employer], gas, oil, or water [employer] threatened to shut off services in your [...] your living situation today? I have a [facility] place to live 09/30/2023 Sex and Gender Information Value Date Recorded Sex Assigned at Male 09/30/2023 2:25 PM CDT Gender Identity Male 09/30/2023 2:25 PM CDT Sexual Orientation Straight 09/30/2023 2: 25 PM CDT documented as of this encounter Medications at Time of Discharge [...] Take 1 capsule by mouth daily. 01/09/2011 triamterene-hydroCHLOROt hiazide (DYAZIDE) 37.5-25 mg per capsule Take 1 capsule by mouth every morning. 01/13/2018 11/23/2023 documented as of this encounter Plan of Treatment Not on file documented as of this encounter Procedures Procedure Name Priority Date/Time Associated Diagnosis Comments PROSTATE-SPECIFIC AG (PSA) DIAGNOSTIC, S Routine 09/30/2023 2:08 PM CDT Benign Prostatic Hyperplasia Hypertrophy With Obstruction documented in this encounter Results * PSA (Prostate-Specific Antigen), Diagnostic (09/30/2023 2:08 [...] CDT Robe Cueva M.D. LAB BLOOD ADD-ON [facility] [address] [place] [address], [facility] [place] [address] [place] [address] documented in this encounter Visit Diagnoses Diagnosis Benign Prostatic Hyperplasia Hypertrophy With Obstruction documented in this encounter Care Teams Revenue Liaison Relationship Specialty Start Date End Date Elsewhere, Pcp PCP - General Internal Medicine 02/20/23 documented as of this encounter
--- OUTSIDE RECORDS SUMMARY | 2023-12-09 10:55 | XMS_ITS | Encounter Summary ---
Author Organization [facility] Address [address] [place] [address] Care Team Providers Care Blower Feeder Dyed Raw Stock Name Role Phone Elsewhere, Pcp Primary Care Provider Unavailabl e Reason for Visit * Outpatient (Routine) - Closed Specialty Diagnoses / Procedures Referred By Zak giron Referred To Contact Diagnoses Benign Prostatic Hyperplasia Hypertrophy With Obstruction Procedures URO Uroflow Robe Cueva M.D. [address] [place] [phone] [facility] Region Referral ID Status Reason Start Date Expiration Date Visits Re quested Visits Authorized [id number] Closed 07/01/2023 06/30/2024 1 1 Encounter Details Date Type Department Care Team (Latest Contact Info) Description 09/30/2023 3:00 PM CDT Procedure visit Department of Urology in [address] [phone] Robe Cueva M.D. [address] [place] [phone] Benign Prostatic Hyperplasia Hypertrophy With Obstruction Discharge Disposition: Home or Self Care Social History Tobacco Use Types Packs/Day Years Used Date Smoking Tobacco: Former Cigarettes Alcohol Use Standard Drinks/Week Comments Yes 2 (1 standard drink = 0.6 oz pur e alcohol) daily [facility] Utilities Answer Date Recorded In the past 12 months has e [employer], gas, oil, or water [employer] threatened to shut off services in your [...] your living situation today? I have a [facility] place to live 09/30/2023 Sex and Gender Information Value Date Recorded Sex Assigned at Male 09/30/2023 2:25 PM CDT Gender Identity Male 09/30/2023 2:25 PM CDT Sexual Orientation Straight 09/30/2023 2: 25 PM CDT documented as of this encounter Procedure Notes * Robe Cueva M.D. - 09/30/2023 3:00 PM CDTAssociated Order(s): URO Uroflow Pre-Procedure Diagnose(s): Benign Prostatic Hyperplasia Hypertrophy With Obstruction Post-Procedure Diagnose(s): Benign Prostatic Hyperplasia Hypertrophy With Obstruction URO Uroflow Performed by: Robe Cueva M.D. Authorized by: Robe Cueva M.D. Care team members present 1. Shelia Crystal [...] of procedure: successful Complications: no apparent complications documented in this encounter Plan of Treatment Not on file documented as of this encounter Procedures Procedure Name Priority Date/Time Associated Diagnosis Comments VA MG PST VOID RESID US NON IMG Routine 09/30/2023 3:00 PM CDT Benign Prostatic Hyperplasia Hypertrophy With Obstruction VA UROFLOWMETRY CMPLX Routine 09/30/2023 3:00 PM CDT Benign Prostatic Hyperplasia Hypertrophy With Obstruction documented in this encounter Results * VA UROFLOWMETRY CMPLX, VA MG PST VOID RESID US NON IMG [...] apparent complications Robe Cueva M.D. UROLOGY ORDERABLES documented in this encounter Visit Diagnoses Diagnosis Benign Prostatic Hyperplasia Hypertrophy With Obstruction documented in this encounter Care Teams Blower Feeder Dyed Raw Stock Relationship Specialty Start Date End Date Elsewhere, Pcp PCP - General Internal Medicine 02/20/23 documented as of this encounter
== END 2023-12-09 10:46 | disposition home or self-care (01) ==
PROVIDERS: PCP Family Medicine; Visit Provider Family Medicine
DX: E87.1 Hypo-osmolality and hyponatremia (principal); E78.2 Mixed hyperlipidemia; R74.8 Abnormal levels of other serum enzymes
CPT/HCPCS: 80048; 80061; 80076

== ENCOUNTER 2024-04-24 08:46 | Outpatient (CLI) | payer MEDICARE, OTHER, SELFPAY | END 2024-04-24 08:47 | disposition home or self-care (01) | LOC: MRI 08:47 | PROVIDERS: PCP Family Medicine; Visit Provider Surgery | DX: C43.9 Malignant melanoma of skin, unspecified (principal); I63.81 Other cerebral infarction due to occlusion or stenosis of small artery; I67.82 Cerebral ischemia; R59.1 Generalized enlarged lymph nodes | CPT/HCPCS: 70553; 76882; A9575 ==

== ENCOUNTER 2024-04-27 09:04 | Outpatient (CLI) | payer MEDICARE, OTHER, SELFPAY | END 2024-04-27 09:05 | disposition home or self-care (01) | LOC: FBOREF 09:05 | PROVIDERS: PCP Family Medicine; Visit Provider Family Medicine | DX: I10 Essential (primary) hypertension (principal) | CPT/HCPCS: 80048; 85025 ==

== ENCOUNTER 2024-05-04 07:56 | Day surgery (SDC) | payer MEDICARE, OTHER, SELFPAY ==
[2024-05-04] VITALS (13 sets, daily range): BP systolic 139–174; BP diastolic 66–82; PULSE 66–84; RESP 10–16; TEMP 36.2–37.2; O2SAT 94–99; BMI 32.0
--- OUTSIDE RECORDS SUMMARY | 2024-05-04 08:01 | XMS_ITS | Clinical Summary ---
Author Organization [facility] Address [address] [place] [id number] Care Team Providers Care Rubber Press Tender Name Role Phone Elsewhere, Pcp Primary Care Provider Unavailabl e Source Comments Patient records contain information from all sites at [facility]. For routine questions regarding patient records, call [phone] during business hours, M-F 8:00 AM - 5:00 PM Central Time. Record requests for emergency care only can be directed to [phone] at any time.[facility] Allergies Active Allergy Reactions Criticality Noted Date Comments Harpreet Inhibitors Cough 07/18/2006 Medications atorvastatin (LIPITOR) 40 mg tablet Take 40 mg by mouth daily. 01/25/2018 Active metoprolol succinate (TOPROL-XL) 200 mg 24 hr tablet Take 1 tablet by mouth daily. 01/13/2018 Active omega-3 fatty acids-fish oil 300-1,000 mg per capsule Take 2 g by mouth daily. Active cholecalciferol , vitamin D3, (cholecalcifero l) 25 mcg (1,000 Unit) tablet Take 25 [...] for 1 week after surgery 07/01/2023 Active Active Problems Problem Noted Date Diagnosed [...] Encounters Date Type Department Care Team Description 05/02/2024 5:29 PM SPARKER AND PATCHER - 05/02/2024 7:[address] [facility] Emergency [facility] [address] [place] [phone] Kimberlyn Norman P.A.-C. Sprain Knee Initial Right (Primary Dx) Discharge Disposition: Home or Self Care from Last 3 Months Immunizations Immunization Administration Dates Next Due HZV (ZOSTAVAX) 03/19/2012 Influenza, Unspecified 12/04/2016,2015,01/12/2013,01/04/2012, 7,01/30/2006,01/19/2005,01/06/2004,02/05/2003 PCV13 11/25/2015 PPSV23 01/30/2006 Td (Adult), adsorbed 02/05/2003 Social History Tobacco Use Types Packs/Day Years Used Date Smoking Tobacco: Former Cigarettes Tobacco Cessation:Counseling Given: Not Answered Alcohol Use Standard Drinks/Week Comments Yes 2 (1 standard drink = 0.6 oz pur e alcohol) daily [facility] Utilities Answer Date Recorded In the past 12 months has e electric, gas, oil, or water [employer] threatened to shut off services in your [...] your living situation today? I have a [facility] place to live 11/20/2023 Sex and Gender Information Value Date Recorded Sex Assigned at Male 09/30/2023 2:25 PM CDT Legal Sex Male 10:16 PM SPARKER AND PATCHER Gender Identity Male 09/30/2023 2:25 PM CDT Sexual Orientation Straight 09/30/2023 2: 25 PM CDT Last Filed Vital Signs Vital Sign Reading Time Taken Comments Blood Pressure 152/67 05/02/2024 7:00 PM SPARKER AND PATCHER Pulse 72 05/02/2024 6:45 PM SPARKER AND PATCHER Temperature 37.1 C (98.8 F) 05/02/2024 5:35 PM SPARKER AND PATCHER Respiratory Rate 18 05/02/2024 5:35 PM SPARKER AND PATCHER Oxygen Saturation 97% 05/02/2024 6:45 PM SPARKER AND PATCHER Inhaled Oxygen Concentration - - Weight 100 kg (221 lb 1.9 oz) 11/22/2023 6:04 AM CDT Height 177.8 cm (5' 10) 11/20/2023 9:33 PM CDT Body Mass Index 31.73 11/20/2023 9:33 PM CDT Plan of Treatment Health Maintenance Due Date Last Done Comments Office Visit for Blood Pressure Check / Re-check 1943 Zoster Vaccines (2 of 3) 05/14/2012 03/19/2012 RSV vaccine - (32-36 weeks) or 60+ years (1 - 1-dose 75+ series) 07/09/2018 COVID-19 Vaccine (4 - 2023- season) 2023 08/09/2021, 02/16/2021, 05/17/2020 Influenza Vaccine (#1) 2023 , 01/02/2022, 01/18/2021, Additional history exists DTaP,Tdap,and Td Vaccines (2 - Td or Tdap) 01/14/2024 01/13/2014, 02/05/2003 Depression Screening (Annual PHQ-2) 03/11/2024 Fall Risk Screen (Annual) 03/11/2024 Pneumococcal vaccine (50+ years) Completed 11/27/2017, 11/25/2015, 01/30/2006 Abdominal Aortic Aneurysm (AAA) Screen Discontinued 11/20/2023 IPV Vaccines Aged Out No longer eligi ble based on patient's age to complete this topic Procedures Procedure Name Priority Date/Time Associated Diagnosis Comments DX KNEE RIGHT 4+ VIEWS RAD - Semiurgent (Fast; most ED patients; some inpatients) 05/02/2024 6:07 [address] [address] ABDOMEN PELVIS WITH IV CONTRAST RAD - Semiurgent (Fast; most ED patients; some inpatients) 11/20/2023 5:44 PM CDT from Last 3 Months or Most Recently Relevant to Health Maintenance Results * DX Knee Right 4+ Views (05/02/2024 6:07 PM SPARKER AND PATCHER) Anatomical Region Laterality Modality Lower Extremity, Knee, Muscu loskeletal RST LOS, Musculoskeletal ARZ LOS, Muskuloskeletal FLA LOS Right Digit al Radiography Impressions 05/02/2024 6:27 PM SPARKER AND PATCHER Normal knee alignment. No fracture, joint space narrowing or dislocation. Small suprapatellar effusion. Mild to moderate degenerative changes in the medial, lateral and patellofemoral compartments. Narrative 05/02/2024 6:27 PM SPARKER AND PATCHER EXAM: DX KNEE RIGHT 4+ VIEWS Procedure Note Angel Pereira M.D. - 05/02/2024 EXAM: DX KNEE RIGHT 4+ VIEWS IMPRESSION: Normal knee alignment. No fracture, joint space narrowing or dislocation.Small suprapatellar effusion. Mild to moderate degenerative changes in themedial, lateral and patellofemoral compartments. us Kimberlyn Norman P.A.-C. IMG DIAGNOSTIC IMAG ING PROCEDURES Final Result * CT Abdomen Pelvis with IV Contrast [...] FINDINGS: Chest: Moderate multifocal patchy consolidative, and [id number] in the bilateral lower lobes, slightly greater [...] findings in the abdomen or pelvis. Laureen RAGSDALE PCasie., P.A. IMG CT PROC EDURES Final Result from Last 3 Months or Most Recently Relevant to Health Maintenance Insurance MEDICARE MEDICA Advance Directives For more information, please contact: [phone] * DNR/DNI (Latest Code Status on File) [...] Due to: Patient not available Care Teams Rubber Press Tender Relationship Specialty Start Date End Date Elsewhere, Pcp PCP - General Internal Medicine 02/20/23
--- OUTSIDE RECORDS SUMMARY | 2024-05-04 08:01 | XMS_ITS | Encounter Summary ---
Author Organization [facility] Address [address] [place] [address] Care Team Providers Care Apparel Patternmaker Name Role Phone Elsewhere, Pcp Primary Care Provider Unavailabl e Reason for Visit * Reason Comments Knee Pain Pt went to kick cat from going outside and twisted rt knee. Difficulty extending knee and bearing weight Encounter Details Date Type Department Care Team ([facility] st Contact Info) Description 05/02/2024 5:29 PM FUR PULLER - 05/02/2024 7:23 PM [facility] Emergency [place] [facility] [address] [place] [phone] Kimberlyn Norman, P.ACammie-CCammie [address] [place] [phone] Sprain Knee Initial Right (Primary Dx) Discharge Disposition: Home or Self Care Social History Tobacco Use Types Packs/Day Years Used Date Smoking Tobacco: Former Cigarettes Alcohol Use Standard Drinks/Week Comments Yes 2 (1 standard drink = 0.6 oz pur e alcohol) daily [facility] Utilities Answer Date Recorded In the past 12 months has e [employer], gas, oil, or water [employer] threatened to shut off services in your [...] your living situation today? I have a [facility] place to live 11/20/2023 Sex and Gender Information Value Date Recorded Sex Assigned at Male 09/30/2023 2:25 PM CDT Legal Sex Male 10:16 PM FUR PULLER Gender Identity Male 09/30/2023 2:25 PM CDT Sexual Orientation Straight 09/30/2023 2: 25 PM CDT documented as of this encounter Last Filed Vital Signs Vital Sign Reading Time Taken Comments Blood Pressure 152/67 05/02/2024 7:00 PM FUR PULLER Pulse 72 05/02/2024 6:45 PM FUR PULLER Temperature 37.1 C (98.8 F) 05/02/2024 5:35 PM FUR PULLER Respiratory Rate 18 05/02/2024 5:35 PM FUR PULLER Oxygen Saturation 97% 05/02/2024 6:45 PM FUR PULLER Inhaled Oxygen Concentration - - Weight - - Height - - Body Mass Index - - documented in this encounter Discharge Instructions * Attachments The following attachments cannot be sent through Care Everywhere. * Knee Sprain Adult [id number] (Hebrew) documented in this encounter Medications at Time of Discharge atorvastatin (LIPITOR) 40 mg tablet Take 40 mg by mouth daily. 01/25/2018 cholecalciferol, vitamin D3, (cholecalciferol) 25 mcg (1,000 Unit) tablet Take 25 mcg by mouth daily. clopidogreL (PLAVIX) 75 mg tablet Take 1 tablet (75 mg total) by mouth daily. Hold for 1 week after surgery 07/01/2023 ginkgo biloba leaf extract 60 mg capsule Take 1 capsule by mouth daily. metoprolol succinate (TOPROL-XL) 200 mg 24 hr [...] Take 1 capsule by mouth daily. 01/09/[address] tablet Take 1 tablet (81 mg total) by mouth daily. Hold for 1 week after surgery 07/01/2023 hydrOXYzine (ATARAX) 25 mg tablet Take 25 mg by mouth at bedtime as needed for allergies. documented as of this encounter ED Notes * Kimberlyn Norman P.A.-C. - 05/02/2024 5:46 PM CST HISTORY AND PHYSICAL: History of present illness: Kaushik Daily is an 78-year-old male who presents to the emergency room today with concern of right knee injury that occurred just prior to arrival to the emergency room. He states that he was walking out of his house when his cat was trying to escape up the door. He states that he made an odd maneuver on his right knee twisting his right knee trying to keep the cat inside, and began to have pain. He says that he has been able to walk with his cane. Patient denies fever, chills, chest pain, shortness of breath, or cough. Denies headache, neck stiff ness, change in vision, syncope, or near syncope. Denies nausea, vomiting, abdominal pain, diarrhea, constipation, or dysuria. Has not noted any blood in urine or stool. Patient has been eating and drinking appropriately. Review of systems: As per history of present illness and below otherwise all systems reviewed and negative. Past medical history: As per history of present illness and as reviewed below otherwise noncontributory. Surgical history: As per history of present illness and as reviewed below otherwise noncontributory. Social history: See social history for further information Family history: As per history of present illness and as reviewed below otherwise noncontributory. Physical exam: General: Patient is alert, oriented, and in no acute distress. Patient sitting comfortably on exam table. Blood pressure 114/72, pulse 75, temperature 37.1 ??C, temperature source Temporal, resp. rate 18, SpO2 97%. There is no height or weight on file to calculate BMI. HEENT: Atraumatic, normocephalic, pupils equal and reactive bilaterally, negative for conjunctival pallor or scleral icterus, mucous membranes moist, throat clear, neck supple, nontender, trachea midline. No drooling or trismus noted. No meningeal signs. No hot potato voice noted. Lungs: Clear to auscultation, breath sounds equal bilaterally, chest nontender. Heart: S1S2, regular rate and rhythm without overt murmur Abdomen: Soft, nondistended, nontender. Negative for masses or hepatosplenomegaly. Negative for costovertebral tenderness. Pelvis: Stable nontender. Genitourinary: Deferred. Rectal: Deferred. Skin: Intact, warm, dry. No lesions or rashes noted. Musculoskeletal: Patient does have pain to palpation of the medial compartment of the right knee with no obvious edema, erythema, or increased warmth. Dorsalis pedis and posterior tibial pulses are grossly intact of the right lower extremity with capillary refill less than 2 seconds. Patient does have full range of motion of bilateral lower extremities but does have pain with range of motion of the right knee. Otherwise, Atraumatic, negative for cords or calf pain. Neurovascular unremarkable. Neuro: Awake, alert, oriented. Cranial nerves II through XII unremarkable. Cerebellum unremarkable.Motor and sensory unremarkable throughout. Exam nonfocal. Medical Decision Making: Patient feels safe to discharge home with his knee injury and feels that he can ambulate stably. Hewas given a knee immobilizer and instructed to use his walker or his cane at home. He expresses understanding. I did discuss with the patient that if he does not feel safe ambulating with his knee injury, to return to the emergency room or call ambulance for assistance so that he does not fall or [place] stain any further injuries. He expresses understanding. Strict return precautions extensively discussed with patient. Discussed the importance for close follow up with the primary care provider. ED Course as of 05/02/241899 Sat May 02, 2024 183 DX Knee Right 4+ Views IMPRESSION: Normal knee alignment. No fracture, joint space narrowing or dislocation. Small suprapatellar effusion. Mild to moderate degenerative changes in the medial, lateral and patellofemoral compartments. Final Diagnoses: as of 05/02/241899 Sprain Knee Initial Right Definitive disposition and diagnosis as appropriate pending reevaluation and review of above. Kimberlyn Norman, PCammieASelin. 05/02/241901 PULLER documented in this encounter Plan of Treatment Not on file documented as of this encounter Procedures Procedure Name Priority Date/Time Associated Diagnosis Comments DX KNEE RIGHT 4+ VIEWS RAD - Semiurgent (Fast; most ED patients; some inpatients) 05/02/2024 6:07 PM FUR PULLER documented in this encounter Results * DX Knee Right 4+ Views (05/02/2024 6:07 PM FUR PULLER) Anatomical Region Laterality Modality Lower Extremity, Knee, Muscu loskeletal RST LOS, Musculoskeletal ARZ LOS, Muskuloskeletal FLA LOS Right Digit al Radiography Impressions 05/02/2024 6:27 PM FUR PULLER Normal knee alignment. No fracture, joint space narrowing or dislocation. Small suprapatellar effusion. Mild to moderate degenerative changes in the medial, lateral and patellofemoral compartments. Narrative 05/02/2024 6:27 PM FUR PULLER EXAM: DX KNEE RIGHT 4+ VIEWS Procedure Note Angel Pereira M.D. - 05/02/2024 EXAM: DX KNEE RIGHT 4+ VIEWS IMPRESSION: Normal knee alignment. No fracture, joint space narrowing or dislocation.Small suprapatellar effusion. Mild to moderate degenerative changes in themedial, lateral and patellofemoral compartments. Kimberlyn Norman P.A.-C. IMG DIAGNOSTIC IMAG ING PROCEDURES Final Result documented in this encounter Visit Diagnoses Diagnosis Sprain Knee Initial Right- Primary documented in this encounter Care Teams Apparel Patternmaker Relationship Specialty Start Date End Date Elsewhere, Pcp PCP - General Internal Medicine 02/20/23 documented as of this encounter
--- OUTSIDE RECORDS SUMMARY | 2024-05-04 08:01 | XMS_ITS | Encounter Summary ---
Author Organization [facility] Address [address] [place] [address] Care Team Providers Care Cloth Laminating Supervisor Name Role Phone Elsewhere, Pcp Primary Care Provider Unavailabl e Encounter Details Date Type Department Care Team (Latest Contact Info) Description 11/20/2023 Intake [facility] Social History Tobacco Use Types Packs/Day Years Used Date Smoking Tobacco: Former Cigarettes Alcohol Use Standard Drinks/Week Comments Yes 2 (1 standard drink = 0.6 oz pur e alcohol) daily [facility] Utilities Answer Date Recorded In the past 12 months has [employer], gas, oil, or water [employer] threatened to shut off services in your [...] your living situation today? I have a [facility] place to live 11/20/2023 Sex and Gender Information Value Date Recorded Sex Assigned at Male 09/30/2023 2:25 PM CDT Legal Sex Male 10:16 PM SHUTDOWN PLANNER Gender Identity Male 09/30/2023 2:25 PM CDT Sexual Orientation Straight 09/30/2023 2: 25 PM CDT documented as of this encounter Functional Status * Intimate Partner Violence Question Answer Date of Assessment Author Within the last year, have y ou been humiliated or emotionally abused in other ways by your partner or ex-partner? No 11/20/2023 9:00 PM CDT Juancho Betancourt, R.N. Within the last year, have y ou been afraid of your partner or ex-partner? No 11/20/2023 9:00 PM CDT Juancho Betancourt, R.N. Within the last year, have y ou been raped or forced to have any kind of sexual activity by your partner or ex-partner? No 11/20/2023 9:00 PM CDT Juancho Betancourt R.N. Within the last year, have y ou been kicked, hit, slapped, or otherwise physically hurt by your partner or ex-partner? No 11/20/2023 9:00 PM CDT Juancho Betancourt R.N. documented as of this encounter Plan of Treatment Not on file documented as of this encounter Visit Diagnoses Not on filedocumented in this encounter Additional Health Concerns Infection Onset Date Last Indicated Resolved Time COVID19 Pending 11/20/2023 11/20/2023 11/20/2023 3 :34 PM CDT Influenza 11/22/2023 11/22/2023 11/29/2023 5:57 AM CDT documented as of this encounter Care Teams Cloth Laminating Supervisor Relationship Specialty Start Date End Date Elsewhere, Pcp PCP - General Internal Medicine 02/20/23 documented as of this encounter
[2024-05-04] MEDS: LACTATED RINGERS 1000 ML 1,000 ML 100 ML IV (08:30)
[2024-05-04] MEDS: SODIUM CHLORIDE 0.9 % (FLUSH) 10 ML SYRINGE IVF (08:31)
--- NOTE | 2024-05-04 08:37 | W.PM.H&PU ---
History & Physical Update History & Physical Update H&P Reviewed and patient assessed: No changes noted
--- NOTE | 2024-05-04 08:40 | P.GSOP_ITS ---
Operative Note Date of procedure: 05/04/24 Pre-op diagnosis: 1. Recurrent melanoma of the right forearm. Post-op diagnosis: Same Type of Procedure: 1. Excision of recurrent right forearm melanoma with partial incisional closure. 2. Full-thickness skin graft 13.5 x 7.5 cm with left upper arm as the donor site. Indications: 78-year-old male with history of 2.8 mm right forearm melanoma s/p wide local excision with sentinel lymph node biopsy in 03/02 presented to clinic with 2 nodules adjacent to his previously well-healed scar. The nodules were symptomatic and were excised in clinic. Pathology came back as melanoma. One of the nodules was 9.2 mm deep and had deep positive margin and a second nodule Was 2.3 mm deep. On clinical exam patient has scars were healing okay with adjacent 2 small nodules palpated inferior and medial to the excised nodules. In the right axilla there was possibly 1 enlarged lymph node. Ultrasound of this lymph node was obtained and showed that the lymph node was enlarged by size measuring up to 2.3 cm but had benign appearance. Brain MRI was obtained that did not show brain metastases. Given patient's clinical history and following NCCN guidelines, excision of recurrent melanoma in the operating room was recommended. The procedure was discussed in detail. The risks associated proc edure including infection, bleeding, and melanoma recurrence were all discussed with the patient, and he agreed to proceed. Procedure Description: After discussing the risks and benefits of the procedure, the patient signed informed consent.? The operative site was marked and the patient was brought to the operating room and placed on the operating table in supine position.? Care was taken to pad the patient's pressure points.?? The patient was then intubated.?? The operative site was then prepped and draped in the usual sterile fashion.? A time-out was then performed. Local anesthetic was injected in the right forearm. An elliptical slightly oblique incision was marked with a marking pen allowing for 1 cm lateral and medial margin marked from the melanoma recurrence. The ellipse of skin that was marked also contained palpable nodules inferior medially. The largest area involved measured 5.7 x 3 cm. A skin incision was made with a scalpel. Subcutaneous fat was then divided with cautery. The ellipse of skin containing recurrent melanoma and the muscle fascia were excised with cautery. The superficial branch of the radial nerve was visualized and the medial cutaneous branch was divided. Bleeding was noted Adjacent to the superficial branch in the mid forearm and this was controlled with Vicryl stick tie. The ellipse of skin was then marked with a single stitch superior and double lateral and sent to pathology. The ellipse of skin was measuring 20 x 7.2 cm. The lateral and medial skin flaps were then developed with cautery as far posteriorly as possible. However, this did not allow for full primary closure. Superior and inferior most portions of the surgical incision was then reapproximated with interrupted 2-0 and 3-0 Vicryl sutures. The open area overlying the muscle required skin graft placement. This area measured 13.5 x 7.5 cm. The previously prepped skin of the left upper arm with redundancy was then marked with a marking pen. Local anesthetic was injected at the surgical site. The skin graft was taken from the left upper medial arm. Subdermal fat was then excised with scissors to clear the dermis. Slits were placed in the graft with a scalpel. The graft was then positioned and sutured in place over the muscle. It was secured in place with interrupted chromic sutures. A few Vicryl sutures were placed medially to relieve tension on the graft. Small area inferior medially was not covered by the continues graft and the excess skin from the superior portion was then used to cover this area. This small portion was secured in place with chromic sutures. The skin graft appeared to lie in good position. The superior and inferior reapproximated portions of the dermis were examined. The skin was closed with a running 4-0 Monocryl stitch. Steri-Strips were placed inferiorly and superiorly over the primarily closed skin. The graft was then covered with bacitracin and Xeroform. Fluffed Kerlix fluffs were placed over the graft and secured in place with Kerlix roll. There right forearm was then placed in the split arm splint which was secured in place with Harpreet wrap. I then proceeded with incisional closure of the left upper arm donor site. Skin flaps were developed minimally medially and laterally with cautery. Hemostasis achieved with cautery. The dermis was then reapproximated with interrupted 2-0 in 3-0 Vicryl sutures. The skin was closed with a running 4-0 Monocryl stitch. The length of the incision was 15 cm. Steri-Strips and sterile 4x4s were placed over the incision. the incision was wrapped with an Harpreet wrap. All counts were correct at the end of the case. ? The patient was then woken and transported to the recovery area in stable condition. ? The patient tolerated the procedure well. Findings: Large defect in the right forearm requiring skin graft. Anesthesia: GETA Surgeon: Terrance Hutton MD Estimated blood loss (mL): 15 Additional Specimen Information: 1. Right forearm recurrent melanoma. Condition: stable Disposition: PACU
[2024-05-04] MEDS: CEFAZOLIN 2 GM INJ IVP (09:05)
[2024-05-04] MEDS: LIDOCAINE 1%-EPI 1:100,000 20 ML INFILTRATI (10:00)
[2024-05-04] MEDS: BUPIVACAINE 0.25% 30 ML INJECTION (10:00)
[2024-05-04] MEDS: BACITRACIN OINTMENT BULK TUBE 1 APPLIC TOPICAL (10:45)
--- NOTE | 2024-05-04 11:21 | P.ANES_ITS ---
Anesthesia Charges Start Date/Time Anesthesia Start Date: 05/04/24 Anesthesia Start Time: 08:50 Stop Date/Time Anesthesia Stop Date: 05/04/24 Anesthesia Stop Time: 11:20 Coding CPT Codes CPT Codes: ANESTH SKIN EXT/PER/ATRUNK - 38010 ([id number]) P3 - PATIENT W/SEVERE SYS DISEASE, QK - TUBING MACHINE OPERATOR 2-4 CNCRNT ANES PROC, QX - AGENCY DIRECTOR SVC W/ MD MED DIRECTION
--- NOTE | 2024-05-04 11:21 | W.ANESCHARGE ---
Anesthesia Charges Start Date/Time Anesthesia Start Date: 05/04/24 Anesthesia Start Time: 08:50 Stop Date/Time Anesthesia Stop Date: 05/04/24 Anesthesia Stop Time: 11:20 Coding CPT Codes CPT Codes: ANESTH SKIN EXT/PER/ATRUNK - 12109 ([id number]) P3 - PATIENT W/SEVERE SYS DISEASE, QK - WAREHOUSE LABORER 2-4 CNCRNT ANES PROC, QX - FARM AGENT SVC W/ MD MED DIRECTION
--- NOTE | 2024-05-04 11:22 | P.ANES_ITS ---
Anesthesia Charges Start Date/Time Anesthesia Start Date: 05/04/24 Anesthesia Start Time: 08:50 Stop Date/Time Anesthesia Stop Date: 05/04/24 Anesthesia Stop Time: 11:20 Summary Extremes of Age - Over 70 or under 1: MDA Coding CPT Codes CPT Codes: ANESTH SKIN EXT/PER/ATRUNK - 53621 ([id number]) QK - BALANCING MACHINE SET UP WORKER 2-4 CNCRNT ANES PROC, QX - TELEVISION PRODUCTION TECHNICIAN SVC W/ MD MED DIRECTION, P3 - PATIENT W/SEVERE SYS DISEASE Additional Codes: Summary - Extremes of Age - Over 70 or under 1: MDA ([id number])
--- NOTE | 2024-05-04 13:21 | SUR.PHASEII ---
Pt down to PT at 1310 to work on stairs with cane d/t inability to move R extremity.
--- NOTE | 2024-05-28 09:55 | ONC.NURNOTE ---
this credit underwriter received a call from Nikkie- , she had called the clinics, and left a message so she is now calling the [facility] because she had this number for his upcoming appt with Oncology on 06/10 as a new patient Nikkie reports that Kaushik fell during the night- she was not present when he fell he has a black eye, and his graft donor site is bleeding Kaushik is alert, spoke with this credit underwriter on the phone it was recommended that they come into the [facility] now if needed- call 911 for assistance
== END 2024-05-04 13:39 | disposition home or self-care (01) ==
PROVIDERS: PCP Family Medicine; Visit Provider Surgery
PROC: (CPT 11606; principal; 2024-05-04 09:30)
DX: C43.61 Malignant melanoma of right upper limb, including shoulder (principal)
CPT/HCPCS: 11606; 15220; 17999; 00400; 81210; 88305; 97161; 99100; J0665; J0690; J1100; J2405; J2704; J3010; J3490; J7120

== ENCOUNTER 2024-05-28 10:59 | Emergency (ER) | payer MEDICARE, OTHER, SELFPAY ==
--- OUTSIDE RECORDS SUMMARY | 2024-05-28 11:01 | XMS_ITS | Encounter Summary ---
Author Organization [facility] Address [address] [place] [address] Care Team Providers Care Electric Stove Mechanic Name Role Phone Elsewhere, Pcp Primary Care Provider Unavailabl e Reason for Referral * Outpatient (Routine) - Authorized Specialty Diagnoses / Procedures Referred By Zak giron Referred To Contact Radiation Oncology Diagnoses Melanoma Skin (HCC) Terrance Hutton M.D. [address] [place] [address] Phone: tel: fax: [facility] Referral ID Status Reason Start Date Expiration Date V isits Requested Visits Authorized [id number] Authorized 05/22/2024 11/21/2025 1 1 Encounter Details Date Type Department Care Team (Late st Contact Info) Description 05/22/2024 [facility] [address] [place] [address] Terrance Hutton M.D. [address] [place] [address] Melanoma Skin (HCC) (Primary Dx) Social History Tobacco Use Types Packs/Day Years Used Date Smoking Tobacco: Former Cigarettes Alcohol Use Standard Drinks/Week Comments Yes 2 (1 standard drink = 0.6 oz pur e alcohol) daily [facility] Utilities Answer Date Recorded In the past 12 months has e electric, gas, oil, or water company threatened to shut [...] Date Recorded Dental: Regular Dentist Yes 09/30/19 24 Employment Answer Date Recorded Employment status Retired 09/30/2023 Housing Stability Answer Date Recorded What is your living situation today? 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 Gender Identity Male 09/30/2023 2:25 PM CDT Sexual Orientation Straight 09/30/2023 2: 25 PM CDT documented as of this encounter Plan of Treatment Scheduled Referrals Name Type Priority Associated Diagnoses Orde r Schedule Radiation Oncology Referral Outpatient Referral Routine Melanoma Skin (HCC) Expected: 05/22/2024 (Approximate), Expires: 08/22/2025 documented as of this encounter Visit Diagnoses Diagnosis Melanoma Skin (HCC)- Primary documented in this encounter Care Teams Electric Stove Mechanic Relationship Specialty Start Date End Date Elsewhere, Pcp PCP - General Internal Medicine 02/20/23 documented as of this encounter
--- OUTSIDE RECORDS SUMMARY | 2024-05-28 11:02 | XMS_ITS | Encounter Summary ---
Author Organization [facility] Address [address] [place] [address] Care Team Providers Care Consumer Relations Complaint Clerk Name Role Phone Elsewhere, Pcp Primary Care Provider Unavailabl e Reason for Visit * Reason Comments Knee Pain Pt went to kick cat from going outside and twisted rt knee. Difficulty extending knee and bearing weight Encounter Details Date Type Department Care Team ([facility] st Contact Info) Description 05/02/2024 5:29 PM PRE PRESS MANAGER - 05/02/2024 7:23 PM [facility] Emergency [place] [facility] [address] [place] [phone] Kimberlyn Norman, P.ACammie-CCammie [address] [place] [phone] Sprain Knee Initial Right (Primary Dx) Discharge Disposition: Home or Self Care Social History Tobacco Use Types Packs/Day Years Used Date Smoking Tobacco: Former Cigarettes Alcohol Use Standard Drinks/Week Comments Yes 2 (1 standard drink = 0.6 oz pur e alcohol) daily [facility] Utilities Answer Date Recorded In the past 12 months has [employer], gas, oil, or water [employer] threatened to shut off services in your [...] PM CDT Legal Sex Male 10:16 PM PRE PRESS MANAGER Gender Identity Male 09/30/2023 2:25 PM CDT Sexual Orientation Straight 09/30/2023 2: 25 PM CDT documented as of this encounter Last Filed Vital Signs Vital Sign Reading Time Taken Comments Blood Pressure 152/67 05/02/2024 7:00 PM PRE PRESS MANAGER Pulse 72 05/02/2024 6:45 PM PRE PRESS MANAGER Temperature 37.1 C (98.8 F) 05/02/2024 5:35 PM PRE PRESS MANAGER Respiratory Rate 18 05/02/2024 5:35 PM PRE PRESS MANAGER Oxygen Saturation 97% 05/02/2024 6:45 PM PRE PRESS MANAGER Inhaled Oxygen Concentration - - Weight - - Height - - Body Mass Index - - documented in this encounter Discharge Instructions * Attachments The following attachments cannot be sent through Care Everywhere. * Knee Sprain Adult [id number]-lc-[id number] (Danish) documented in this encounter Medications at Time of Discharge aspirin [address] tablet Take 1 [...] Take 1 capsule by mouth daily. 01/09/2011 documented as of this encounter ED Notes [...] review of above. Kimberlyn Norman, PCammieASelin. 05/02/241901 PRESS MANAGER documented in this encounter Plan of Treatment Not on file documented as of this encounter Procedures Procedure Name Priority Date/Time Associated Diagnosis Comments DX KNEE RIGHT 4+ VIEWS RAD - Semiurgent (Fast; most ED patients; some inpatients) 05/02/2024 6:07 PM PRE PRESS MANAGER documented in this encounter Results * DX Knee Right 4+ Views (05/02/2024 6:07 PM PRE PRESS MANAGER) Anatomical Region Laterality Modality Lower Extremity, Knee, Muscu loskeletal RST LOS, Musculoskeletal ARZ LOS, Muskuloskeletal FLA LOS Right Digit al Radiography Impressions 05/02/2024 6:27 PM PRE PRESS MANAGER Normal knee alignment. No fracture, joint space narrowing or dislocation. Small suprapatellar effusion. Mild to moderate degenerative changes in the medial, lateral and patellofemoral compartments. Narrative 05/02/2024 6:27 PM PRE PRESS MANAGER EXAM: DX KNEE RIGHT 4+ VIEWS Procedure [...] Primary documented in this encounter Care Teams Consumer Relations Complaint Clerk Relationship Specialty Start Date End Date Elsewhere, Pcp PCP - General Internal Medicine 02/20/23 documented as of this encounter
--- OUTSIDE RECORDS SUMMARY | 2024-05-28 11:02 | XMS_ITS | Encounter Summary ---
Author Organization [facility] Address [address] [place] [address] Care Team Providers Care Picked Edge Sewing Machine Operator Name Role Phone Elsewhere, Pcp Primary Care Provider Unavailabl e Encounter Details Date Type Department Care Team (Latest Contact Info) Description 11/20/2023 Intake [facility] Social History Tobacco Use Types Packs/Day Years Used Date Smoking Tobacco: Former Cigarettes Alcohol Use Standard Drinks/Week Comments Yes 2 (1 standard drink = 0.6 oz pur e alcohol) daily [facility] Utilities Answer Date Recorded In the past 12 months has e [employer], gas, oil, or water [employer] threatened to shut off services in your [...] your living situation today? I have a [facility] place to live 11/20/2023 Sex and Gender Information Value Date Recorded Sex Assigned at Male 09/30/2023 2:25 PM CDT Legal Sex Male 10:16 PM HAND SINGER Gender Identity Male 09/30/2023 2:25 PM CDT [...] documented as of this encounter Care Teams Picked Edge Sewing Machine Operator Relationship Specialty Start Date End Date Elsewhere, Pcp PCP - General Internal Medicine 02/20/23 documented as of this encounter
--- OUTSIDE RECORDS SUMMARY | 2024-05-28 11:02 | XMS_ITS | Clinical Summary ---
Author Organization [facility] Address [address] [place] [address] Care Team Providers Care Business Loan Processor Name Role Phone Elsewhere, Pcp Primary Care Provider Unavailabl e Source Comments Patient records contain information from all sites at [facility]. For routine questions regarding patient records, call [phone] during business hours, M-F 8:00 AM - 5:00 PM Central Time. Record requests for emergency care only can be directed to [phone] at any time.[facility] Allergies Active Allergy Reactions Criticality Noted [...] Encounters Date Type Department Care Team Description 05/22/2024 [facility] [address] [place] [address] Terrance Hutton M.D. Melanoma Skin (HCC) (Primary Dx) 05/02/2024 5:29 PM CARGO INSPECTOR - 05/02/2024 7:23 PM CARGO INSPECTOR Emergency [place] [facility] [address] [place] [phone] Kimberlyn Norman, PCammieAZackaryC. Sprain Knee Initial Right (Primary Dx) Discharge [...] = 0.6 oz pur e alcohol) daily [facility] Utilities Answer Date Recorded In the past 12 months has th e electric, gas, [employer], or water [employer] threatened to shut off services in your [...] your living situation today? I have a [facility] place to live 11/20/2023 Sex and Gender Information Value Date Recorded Sex Assigned at Male 09/30/2023 2:25 PM CDT Legal Sex Male 10:16 PM CARGO INSPECTOR Gender Identity Male 09/30/2023 2:25 PM CDT Sexual Orientation Straight 09/30/2023 2: 25 PM CDT Last Filed Vital Signs Vital Sign Reading Time Taken Comments Blood Pressure 152/67 05/02/2024 7:00 PM CARGO INSPECTOR Pulse 72 05/02/2024 6:45 PM CARGO INSPECTOR Temperature 37.1 C (98.8 F) 05/02/2024 5:35 PM CARGO INSPECTOR Respiratory Rate 18 05/02/2024 5:35 PM CARGO INSPECTOR Oxygen Saturation 97% 05/02/2024 6:45 PM CARGO INSPECTOR Inhaled Oxygen Concentration - - Weight 100 kg (221 lb 1.9 oz) 11/22/2023 6:04 AM CDT Height 177.8 cm (5' 10) 11/20/2023 9:33 PM CDT Body Mass Index 31.73 11/20/2023 9:33 PM CDT Plan of Treatment Health Maintenance Due Date Last Done Comments Office Visit for Blood Pressure Check / Re-check 1945 Zoster Vaccines (2 of 3) 05/14/2012 03/19/2012 COVID-19 Vaccine ( season) 2023 08/09/2021, 02/16/2021, 05/17/2020 DTaP,Tdap,and Td Vaccines (2 - Td or Tdap) 01/14/2024 01/13/2014, 02/05/2003 Depression Screening (Annual PHQ-2) 03/11/2024 Fall Risk Screen (Annual) 03/11/2024 Pneumococcal vaccine (50+ years) Completed 11/27/2017, 11/25/2015, 01/30/2006 Abdominal Aortic Aneurysm (AAA) Screen Discontinued 11/20/2023 Influenza Vaccine Completed 12/09/2023, , 01/02/2022, Additional history exists RSV vaccine - (32-36 weeks) or 60+ years Completed 01/13/2024 IPV Vaccines Aged Out No longer eligi ble based on patient's age to complete this topic Procedures Procedure Name Priority Date/Time Associated Diagnosis Comments DX KNEE RIGHT 4+ VIEWS RAD - Semiurgent (Fast; most ED patients; some inpatients) 05/02/2024 6:[address] ABDOMEN PELVIS WITH IV CONTRAST RAD - Semiurgent (Fast; most ED patients; some inpatients) 11/20/2023 5:44 PM CDT from Last 3 Months or Most Recently Relevant to Health Maintenance Results * DX Knee Right 4+ Views (05/02/2024 6:07 PM CARGO INSPECTOR) Anatomical Region Laterality Modality Lower Extremity, Knee, Muscu loskeletal RST LOS, Musculoskeletal ARZ LOS, Muskuloskeletal FLA LOS Right Digit al Radiography Impressions 05/02/2024 6:27 PM CARGO INSPECTOR Normal knee alignment. No fracture, joint space narrowing or dislocation. Small suprapatellar effusion. Mild to moderate degenerative changes in the medial, lateral and patellofemoral compartments. Narrative 05/02/2024 6:27 PM CARGO INSPECTOR EXAM: DX KNEE RIGHT 4+ VIEWS Procedure [...] FINDINGS: Chest: Moderate multifocal patchy consolidative, and ldmi-cb-szjltoiytwhska in the bilateral lower lobes, slightly greater [...] findings in the abdomen or pelvis. Laureen RAGSDALE, P.A.Ngoc., P.A. IMG CT PROC EDURES Final Result from Last 3 Months or Most Recently Relevant to Health Maintenance Insurance MEDICARE MEDICA Advance Directives For more information, please contact: [phone] * DNR/DNI (Latest Code Status on File) [...] Due to: Patient not available Care Teams Business Loan Processor Relationship Specialty Start Date End Date Elsewhere, Pcp PCP - General Internal Medicine 02/20/23
[2024-05-28 11:18] VITALS: BP 151/76; PULSE 76; RESP 20; TEMP 36.6; O2SAT 98
--- NOTE | 2024-05-28 11:40 | CRLHL7_ITS ---
For Patients: As a result of the Century Cures Act, medical imaging exams and procedure reports are released immediately into your electronic medical record. You may view this report before your referring provider. If you have questions, please contact your health care provider. Indication: Injury Technique: CT examination of the facial bones was performed. Imaging was acquired in the axial plane. Contrast was not administered. Imaging was acquired from above the frontal sinuses to below the hyoid bone. Sagittal and coronal reformatted imaging was performed. Comparison: Portions of a CT dated February 20, 2023 which included most of the relevant area. Findings: There are chronic sinus inflammatory changes primarily involving the frontal sinuses, left greater than right, the ethmoid air cells, the left half of the sphenoid sinus and the left maxillary sinus. These are similar to the prior study. There also findings likely related to prior sinus surgery. There is soft tissue swelling primarily anterior to the left orbit and anterior to the left maxilla. No gas within soft tissues. No radiopaque foreign body. No fracture or destructive process identified involving the orbits or facial bones. The mandible appears intact. Impression: 1. Soft tissue swelling primarily anterior to the left orbit and anterior to the left maxilla. No foreign body. No collection. The globes are intact. 2. No fracture or destructive process identified involving the facial bones, orbits or mandible. 3. Chronic sinus inflammatory disease and probable postsurgical changes of the nasal cavity and sinuses. Please note that all CT scans at this facility use dose modulation, iterative reconstruction, and/or weight-based dosing when appropriate to reduce radiation dose to as low as reasonably achievable. Dictated by Michael Ziegler MD @ 05/28/2024 12:37:58 PM (Electronically Signed)
--- NOTE | 2024-05-28 11:42 | ED.FALL ---
HPI - Fall General Chief Complaint: Fall/Minor Trauma Stated Complaint: Fall, Bleeding Time Seen by Provider: 05/28/24 11:14 History of Present Illness HPI Narrative: This 78-year-old male was sleeping in a recliner and woke up and got up but was off balance and fell into a cart. He hit the left side of his face and his left arm. He did not have loss of consciousness. He is on anticoagulants. His right arm is in a bandage because of a treatment for melanoma where he had a skin graft. He does not report any headache. He does have bruising under his left eye and an abrasion with swelling over his left cheek bone. He also has a skin tear on his left forearm. Related Data Home Medications ?Medication ?Instructions ?Recorded ?Confirmed cholecalciferol (vitamin D3) 10 10 mcg PO 09/26/21 05/20/24 mcg (400 unit) capsule Tumeric 500 mg PO QDAY 11/07/21 05/20/24 ginkgo biloba leaf extract 60 mg 60 mg PO QDAY 11/07/21 05/20/24 capsule multivitamin 1 tab PO QDAY 11/07/21 05/20/24 omega-3 fatty acids 500 mg capsule 500 mg PO BID 11/07/21 05/20/24 vitamin E mixed 1,000 unit capsule 5,000 unit PO QDAY 11/07/21 05/20/24 tamsulosin 0.4 mg capsule 0.4 mg PO DAILY 04/22/23 05/20/24 finasteride 5 mg tablet 5 mg PO DAILY 04/23/23 05/20/24 hydrocodone 5 mg-acetaminophen 325 1 tab PO Q6H PRN 04/23/23 05/20/24 mg tablet thiamine HCl (vitamin B1) 100 mg 100 mg PO DAILY 12/09/23 05/20/24 tablet Previous Rx's ?Medication ?Instructions ?Recorded cetirizine 10 mg tablet 10 mg PO DAILY #90 tabs 12/31/22 atorvastatin 40 mg tablet 40 mg PO QHS #90 tabs 01/10/24 clopidogrel 75 mg tablet 75 mg PO DAILY #90 tabs 01/10/24 metoprolol succinate 200 mg 200 mg PO DAILY #90 tabs 01/10/24 tablet,extended release 24 hr omeprazole 20 mg capsule,delayed 20 mg PO DAILY #90 caps 01/10/24 release triamterene 37.5 1 tab PO DAILY #90 tabs 01/10/24 mg-hydrochlorothiazide 25 mg tablet hydroxyzine HCl 25 mg tablet 25 mg PO QHS #90 tabs 04/27/24 hydrocodone 5 mg-acetaminophen 325 1 tab PO Q6H PRN pain #15 tabs 05/04/24 mg tablet Allergies Allergy/AdvReac Type Severity Reaction Status Date / Time HILARIA Inhibitors Allergy Intermediate Dizziness Verified 05/20/24 13:58 Review of Systems Status of ROS: Reports: 10 or more systems reviewed and unremarkable except as noted in History and below Narrative: Constitutional: No fevers, no weight gain or loss. Eyes: No discharge. No vision changes. HENT: No congestion, no sore throat, no ear pain. Cardiovascular: No chest pain, no palpitations. Respiratory: No shortness of breath, no wheezes, no cough. Gastrointestinal: No abdominal pain, no vomiting, no diarrhea. Genitourinary: No dysuria, no hematuria. Musculoskeletal: Normal range of motion. Skin: No rashes, no pruritis. Neurological: No dizziness, weakness, sensory change, speech change. Endo/Heme/Allergies: No polydipsia. Extra bruising while on anticoagulants. Pysch: no suicidality, no anxiety, no insomnia. All other systems reviewed and are negative. 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 - Kissing spine, site unspecified (ICD-10) History of stroke with residual effects (2018) ?I69.30 - Unspecified sequelae of cerebral infarction (ICD-10) Bilateral primary osteoarthritis of knee ?M17.0 - Bilateral primary osteoarthritis of knee (ICD-10) Mixed hyperlipidemia ?E78.2 - Mixed hyperlipidemia (ICD-10) Primary hypertension ?I10 - Essential (primary) hypertension (ICD-10) Osteoarthritis of left hip ?M16.12 - Unilateral primary osteoarthritis, left hip (ICD-10) Gout ?M10.9 - Gout, unspecified (ICD-10) Gastroesophageal reflux disease ?K21.9 - Gastro-esophageal reflux disease without esophagitis (ICD-10) Cataract of both eyes ?H26.9 - Unspecified cataract (ICD-10) Allergic rhinitis ?J30.9 - Allergic rhinitis, unspecified (ICD-10) Surgical History History of kidney stones ?Z87.442 - Personal history of urinary calculi (ICD-10) Scalp lesion ?L98.9 - Disorder of the skin and subcutaneous tissue, unspecified (ICD-10) History of prostate surgery (07/01/23) ?Z98.890 - Other specified postprocedural states (ICD-10) Malignant melanoma ?C43.9 - Malignant melanoma of skin, unspecified (ICD-10) Status post total replacement of hip ?Z96.649 - Presence of unspecified artificial hip joint (ICD-10) Social History Narrative: , No children Non-smoker, Social EtOH Retired from [employer] What is your current living situation?: I presently have a place to live Problems where you live: no known problems In the past 12 months, utilities in danger of being shut off: no In past 12 months, lack of transportation kept you from medical appts, meetings, work, or getting things needed for daily living: no In the past 12 mos, have been you worried that your food would run out before you had money to buy more?: never true In the past 12 mos, the food you bought just didn't last and you didn't have money to buy more?: never true Smoking Status: Former smoker Do you use any of these nicotine containing products: None How often do you have a drink containing alcohol: 4 or more times a week Alcohol type: beer How many standard drinks containing alcohol do you have on a typical day: 1 or 2 How often do you have six or more drinks on one occasion: Never AUDIT-C Alcohol total score: 4 Non-prescribed substance use: denies use Caffeine: Yes How often does anyone, including family, friends and others, physically hurt you: never How often does anyone, including family, friends and others, insult or talk down to you: never How often does anyone, including family, friends and others, threaten you with harm: never How often does anyone, including family, friends and others, scream or curse at you: never Exam Narrative: Exam Narrative: Constitutional: Well-developed, well-nourished, no acute distress. HEENT: Superficial abrasions and underlying swelling over the left cheek with some bruising under the left eye. Neck: Normal range of motion. Nontender. Supple. Heart: Regular. No murmurs. Normal rate. Intact distal pulses. Lungs: Clear to auscultation. No chest discomfort. No wheezes, rhonchi, or rales. Abdomen: Normal bowel sounds. Nontender. No rebound tenderness. Genitalia: Deferred. Back: No midline tenderness. Normal range of motion. Extremities: Normal range of motion. Left forearm has several skin tears with underlying bruising. Skin: Intact. No rash. Warm. No erythema or pallor. Neurologic: No altered sensation. No weakness. Alert and oriented. Psychiatric: No suicidality. No anxiety or depression. No insomnia. Nursing notes and vitals signs are reviewed. Const: Vital Signs, click to edit/add: Vital Signs - 24 hr 05/28/24 11:18 Temperature 97.9 F Pulse Rate [Pulse Oximeter] 76 Respiratory Rate 20 Blood Pressure [Ri ght Upper Arm] 151/76 H Pulse Oximetry 98 Oxygen Delivery Me thod Room Air Course Vital Signs Vital signs: Initial Vital Signs Temperature 97.9 F 05/28/24 11:18 Temperature Source Temporal Artery Scan 05/28/24 11:18 Pulse Rate 76 05/28/24 11:18 Respiratory Rate 20 05/28/24 11:18 Blood Pressure 151/76 H 05/28/24 11:18 Blood Pressure Mean 101 05/28/24 11:18 Pulse Oximetry 98 05/28/24 11:18 Oxygen Delivery Method Room Air 05/28/24 11:18 Vital Signs Temperature 97.9 F 05/28/24 11:18 Pulse Rate 76 05/28/24 11:18 Respiratory Rate 20 05/28/24 11:18 Blood Pressure 151/76 H 05/28/24 11:18 Pulse Oximetry 98 05/28/24 11:18 Oxygen Delivery Method Room Air 05/28/24 11:18 Temperature 97.9 F 05/28/24 11:18 Pulse Rate 76 05/28/24 11:18 Respiratory Rate 20 05/28/24 11:18 Blood Pressure 151/76 H 05/28/24 11:18 Pulse Oximetry 98 05/28/24 11:18 Oxygen Delivery Method Room Air 05/28/24 11:18 MDM - Fall MDM Narrative Medical decision making narrative: This patient has abrasions on his face and skin tear on his forearm from a fall that occurred prior to arrival. He recently had a graft to his right forearm to treat an area where a melanoma was removed. Surgery clinician came to see the patient in the room. His wounds were cleansed and a wrap was placed around his forearm. CT scan of his facial bones show no sign of fracture or other complication. He is okay to be discharged home to continue current plans. Imaging Data CT Facial bones: Radiologist's impression: 1. Soft tissue swelling primarily anterior to the left orbit and anterior to the left maxilla. No foreign body. No collection. The globes are intact. 2. No fracture or destructive process identified involving the facial bones, orbits or mandible. 3. Chronic sinus inflammatory disease and probable postsurgical changes of the nasal cavity and sinuses. Discharge Plan Discharge Clinical Impression: Skin tear Patient Disposition: Home w/ Parent or Adult Condition: Stable Additional Instructions: Continue current plans. Follow up with MD as scheduled or return if worsening. Prescriptions: No Action cholecalciferol (vitamin D3) 10 mcg (400 unit) capsule 10 mcg PO thiamine HCl (vitamin B1) 100 mg tablet 100 mg PO DAILY cetirizine 10 mg tablet 10 mg PO DAILY Qty: 90 3RF hydroxyzine HCl 25 mg tablet 25 mg PO QHS Qty: 90 3RF vitamin E mixed 1,000 unit capsule 5,000 unit PO QDAY Tumeric 500 mg PO QDAY omega-3 fatty acids 500 mg capsule 500 mg PO BID multivitamin Tablet 1 tab PO QDAY ginkgo biloba leaf extract 60 mg capsule 60 mg PO QDAY Rx Instructions: give with meal/snack tamsulosin 0.4 mg capsule 0.4 mg PO DAILY finasteride 5 mg tablet 5 mg PO DAILY hydrocodone-acetaminophen 5-325 mg tablet 1 tab PO Q6H PRN hydrocodone-acetaminophen 5-325 mg tablet 1 tab PO Q6H PRN (Reason: pain) Qty: 15 0RF atorvastatin 40 mg tablet 40 mg PO QHS Qty: 90 3RF clopidogrel 75 mg tablet 75 mg PO DAILY Qty: 90 1RF triamterene-hydrochlorothiazid 37.5-25 mg tablet 1 tab PO DAILY Qty: 90 3RF metoprolol succinate 200 mg tablet extended release 24 hr 200 mg PO DAILY Qty: 90 3RF omeprazole 20 mg capsule,delayed release(DR/EC) 20 mg PO DAILY Qty: 90 3RF Follow Up/Referrals: Robe Bejarano MD [Primary Care Provider] - Stand Alone Forms: [facility] Info Instructions
--- OUTSIDE RECORDS SUMMARY | 2024-05-28 13:12 | XMS_ITS | Clinical Summary ---
Author Organization [facility] Address [address] [place] [address] Care Team Providers Care City Solicitor Name Role Phone Elsewhere, Pcp Primary Care Provider Unavailabl e Source Comments Patient records contain information from all sites at [facility]. For routine questions regarding patient records, call [phone] during business hours, M-F 8:00 AM - 5:00 PM Central Time. Record requests for emergency care only can be directed to [phone] at any time.[facility] Allergies Active Allergy Reactions Criticality Noted Date [...] Date Type Department Care Team Description 05/22/2024 [facility] AND [facility] [address] [place] [address] Terrance Hutton M.D. Melanoma Skin (HCC) (Primary Dx) 05/02/2024 5:29 PM LABORER CONSTRUCTION OR LEAK GANG - 05/02/2024 7:23 PM LABORER CONSTRUCTION OR LEAK GANG Emergency [facility] [address] [place] [id number] Kimberlyn Norman, PCammieAZackaryC. Sprain Knee Initial Right [...] = 0.6 oz pur e alcohol) daily [facility] Utilities Answer Date Recorded In the past 12 months has th e electric, gas, [employer], or water [employer] threatened to shut off services in your [...] your living situation today? I have a [facility] place to live 11/20/2023 Sex and Gender Information Value Date Recorded Sex Assigned at Male 09/30/2023 2:25 PM CDT Legal Sex Male 10:16 PM LABORER CONSTRUCTION OR LEAK GANG Gender Identity Male 09/30/2023 2:25 PM CDT Sexual Orientation Straight 09/30/2023 2: 25 PM CDT Last Filed Vital Signs Vital Sign Reading Time Taken Comments Blood Pressure 152/67 05/02/2024 7:00 PM LAB[employer]ER [employer]STRUCTION OR LEAK GANG Pulse 72 05/02/2024 6:45 PM LAB[employer]ER CONSTRUCTION OR LEAK GANG Temperature 37.1 C (98.8 F) 05/02/2024 5:35 PM LABORER CONSTRUCTION OR LEAK GANG Respiratory Rate 18 05/02/2024 5:35 PM LABORER CONSTRUCTION OR LEAK GANG Oxygen Saturation 97% 05/02/2024 6:45 PM LAB[employer]ER [employer]STRUCTION OR LE[employer] GANG Inhaled Oxygen Concentration - - Weight 100 [...] ED patients; some inpatients) 05/02/2024 6:07 PM LABORER CONSTRUCTION OR LEAK GANG CT ABDOMEN PELVIS WITH IV CONTRAST RAD - Semiurgent (Fast; most ED patients; some inpatients) 11/20/2023 5:44 PM CDT from Last 3 Months or Most Recently Relevant to Health Maintenance Results * DX Knee Right 4+ Views (05/02/2024 6:07 PM [employer]ER [employer] LEAK GANG) Anatomical Region Laterality Modality Lower Extremity, Knee, Muscu loskeletal RST LOS, Musculoskeletal ARZ LOS, Muskuloskeletal FLA LOS Right Digit al Radiography Impressions 05/02/2024 6:27 PM LAB[employer]ER [employer]STRUCTION OR LEAK GANG Normal knee alignment. No fracture, joint space narrowing or dislocation. Small suprapatellar effusion. Mild to moderate degenerative changes in the medial, lateral and patellofemoral compartments. Narrative 05/02/2024 6:27 PM LAB[employer]ER CONSTRUCTION OR LEAK GANG EXAM: DX KNEE RIGHT 4+ VIEWS Procedure [...] FINDINGS: Chest: Moderate multifocal patchy consolidative, and [id number] in the bilateral lower lobes, slightly greater [...] Advance Directives For more information, please contact: [phone] * DNR/DNI (Latest Code Status on File) [...] Due to: Patient not available Care Teams City Solicitor Relationship Specialty Start Date End Date Elsewhere, Pcp PCP - General Internal Medicine 02/20/23
--- OUTSIDE RECORDS SUMMARY | 2024-05-28 13:12 | XMS_ITS | Encounter Summary ---
Author Organization [facility] Address [address] [place] [address] Care Team Providers Care Clin Tech Name Role Phone Elsewhere, Pcp Primary Care Provider Unavailabl e Reason for Referral * Outpatient (Routine) - Authorized Specialty Diagnoses / Procedures Referred By Zak giron Referred To Contact Radiation Oncology Diagnoses Melanoma Skin (HCC) Terrance Hutton M.D. [address] [place] [address] Phone: tel: fax: [facility] Referral ID Status Reason Start Date Expiration Date V isits Requested Visits Authorized [id number] Authorized 05/22/2024 11/21/2025 1 1 Encounter Details Date Type Department Care Team (Late st Contact Info) Description 05/22/2024 [facility] AND [facility] [address] [place] [address] Terrance Hutton M.D. [address] [place] [address] Melanoma Skin (HCC) (Primary Dx) Social History Tobacco Use Types Packs/Day Years Used Date Smoking Tobacco: Former Cigarettes Alcohol Use Standard Drinks/Week Comments Yes 2 (1 standard drink = 0.6 oz pur e alcohol) daily [facility] Utilities Answer Date Recorded In [...] your living situation today? 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
--- OUTSIDE RECORDS SUMMARY | 2024-05-28 13:13 | XMS_ITS | Encounter Summary ---
Author Organization [facility] Address [address] [place] [address] Care Team Providers Care Orthopedic Shoe Fitter Name Role Phone Elsewhere, Pcp Primary Care Provider Unavailabl e Encounter Details Date Type Department Care Team (Latest Contact Info) Description 11/20/2023 Intake [facility] Social History Tobacco Use Types Packs/Day Years Used Date Smoking Tobacco: Former Cigarettes Alcohol Use Standard Drinks/Week Comments Yes 2 (1 standard drink = 0.6 oz pur e alcohol) daily [facility] Utilities Answer Date Recorded In the past 12 months has e [employer], gas, oil, or water [employer] threatened to shut off services in your [...] your living situation today? 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
--- OUTSIDE RECORDS SUMMARY | 2024-05-28 13:13 | XMS_ITS | Encounter Summary ---
Author Organization [facility] Address [address] [place] [address] Care Team Providers Care Audit Control Clerk Name Role Phone Elsewhere, Pcp Primary Care Provider Unavailabl e Reason for Visit * Reason Comments Knee Pain Pt went to kick cat from going outside and twisted rt knee. Difficulty extending knee and bearing weight Encounter Details Date Type Department Care Team ([facility] st Contact Info) Description 05/02/2024 5:29 PM MULTIPLE GAMES DEALER - 05/02/2024 7:23 PM [facility] [address] [place] [phone] Kimberlyn Norman, P.ACammie-CCammie [address] [place] [phone] Sprain Knee Initial Right (Primary Dx) Discharge Disposition: Home or Self Care Social History Tobacco Use Types Packs/Day Years Used Date Smoking Tobacco: Former Cigarettes Alcohol Use Standard Drinks/Week Comments Yes 2 (1 standard drink = 0.6 oz pur e alcohol) daily [facility] Utilities Answer Date Recorded In the past 12 months has e [employer], gas, oil, or water [employer] threatened to shut off services in your [...] living situation today? I have a [facility] place to live 11/20/2023 Sex and Gender Information Value Date Recorded Sex Assigned at Male 09/30/2023 2:25 PM CDT Legal Sex Male 10:16 PM MULTIPLE GAMES DEALER Gender Identity Male 09/30/2023 2:25 PM CDT Sexual Orientation Straight 09/30/2023 2: 25 PM CDT documented as of this encounter Last Filed Vital Signs Vital Sign Reading Time Taken Comments Blood Pressure 152/67 05/02/2024 7:00 PM MULTIPLE GAMES DEALER Pulse 72 05/02/2024 6:45 PM MULTIPLE GAMES DEALER Temperature 37.1 C (98.8 F) 05/02/2024 5:35 PM MULTIPLE GAMES DEALER Respiratory Rate 18 05/02/2024 5:35 PM MULTIPLE GAMES DEALER Oxygen Saturation 97% 05/02/2024 6:45 PM MULTIPLE GAMES DEALER Inhaled Oxygen Concentration - - Weight - - Height - - Body Mass Index - - documented in this encounter Discharge Instructions * Attachments The following attachments cannot be sent through Care Everywhere. * Knee Sprain Adult [id number] (Lithuanian) documented in this encounter Medications at Time [...] review of above. Kimberlyn Norman, PCammieASelin. 05/02/241901 IPLE GAMES DEALER documented in this encounter Plan of Treatment Not on file documented as of this encounter Procedures Procedure Name Priority Date/Time Associated Diagnosis Comments DX KNEE RIGHT 4+ VIEWS RAD - Semiurgent (Fast; most ED patients; some inpatients) 05/02/2024 6:07 PM MULTIPLE GAMES DEALER documented in this encounter Results * DX Knee Right 4+ Views (05/02/2024 6:07 PM MULTIPLE GAMES DEALER) Anatomical Region Laterality Modality Lower Extremity, Knee, Muscu loskeletal RST LOS, Musculoskeletal ARZ LOS, Muskuloskeletal FLA LOS Right Digit al Radiography Impressions 05/02/2024 6:27 PM MULTIPLE GAMES DEALER Normal knee alignment. No fracture, joint space narrowing or dislocation. Small suprapatellar effusion. Mild to moderate degenerative changes in the medial, lateral and patellofemoral compartments. Narrative 05/02/2024 6:27 PM MULTIPLE GAMES DEALER EXAM: DX KNEE RIGHT 4+ VIEWS Procedure [...] Primary documented in this encounter Care Teams Audit Control Clerk Relationship Specialty Start Date End Date Elsewhere, Pcp PCP - General Internal Medicine 02/20/23 documented as of this encounter
--- OUTSIDE RECORDS SUMMARY | 2024-05-28 13:13 | XMS_ITS | Clinical Summary ---
Author Organization [employer] [facility] Address [address] [place] [address] Care Team Providers Care Fire Support Specialist Name Role Phone Robe Bejarano MD Primary Care Provider + Allergies Active Allergy Reactions Criticality Noted Date Comments Harpreet Inhibitors Cough 07/18/2006 Medications FISH OIL 1,000 MG CAP ONE CAPSULE ONCE DAILY 0 9 Active multivitamins-min erals-lutein (CENTURY MATURE) Tab tablet Take 1 tablet by mouth once daily. 0 1 Active vitamin e 200 unit capsule Take 1 capsule by mouth once daily. 0 1 Active aspirin 81 mg tablet Take 1 tablet by mouth once daily with a meal. 0 Active Calcium-Cholecalc iferol, D3, (CALCIUM 500+D) 500 mg(1,250mg) -400 unit chewable tablet Take 1 tablet by mouth once daily. 0 4 Active ginkgo biloba extract 120 mg cap Take 1 Cap by mouth once daily. 0 4 Active Cholecalciferol, Vitamin D3, (VITAMIN D-3) 5,000 unit tabIndications:[facility] annual wellness visit, subsequent Take 1 tablet by mouth once every other day. 0 6 Active triamterene-hydro chlorothiazide, 37.5-25 mg, (DYAZIDE) 37.5-25 mg capsuleIndication s:Essential hypertension Take 1 capsule by mouth every morning. 30 capsule 8 Active metoprolol succinate SR (TOPROL XL) 200 mg Sustained-Release tabletIndications :Essential hypertension Take 1 tablet by mouth once daily. 30 tablet 8 Active atorvastatin (LIPITOR) 40 mg tabletIndications :Hyperlipidemia TAKE 1 TABLET EVERY DAY 90 tablet 8 Active omeprazole (PRILOSEC) 20 mg Delayed-Release capsuleIndication s:Chronic GERD TAKE 1 CAPSULE ONE TIME DAILY BEFORE A MEAL 90 capsule 1 9 Active clopidogrel (PLAVIX) 75 mg tabletIndications :Cerebrovascular accident (CVA), unspecified mechanism (HC) TAKE 1 TABLET EVERY DAY 90 tablet 9 Active Active Problems Problem Noted Date Diagnosed [...] 10 years PSA - normal - 01/14 Encounters Date Type Department Care Team Description 05/04/2024 Lab Requisition [facility] [phone] Terrance Hutton MD 04/10/2024 Telephone [facility] [address] [place] [address] Terrance Hutton MD Results 03/26/2024 Lab Requisition [facility] [phone] Terrance Hutton MD from Last 3 Months Immunizations Immunization Administration Dates Next Due Influenza, High-dose Inactivated 11/25/2015,11/2014,01/11/2014 Influenza, IIV3 (Age >=3 years) 01/13/20 13,01/04/2012,12/18/2010,2009,02/04/2007,01/30/2006 [...] Recorded Sex Assigned at Not on file Legal Sex Male 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 Gender Identity Not on file Sexual Orientation Not on file Occupation Industry Job Start Date Job End Date Retired Not on file Not on file Not on file Obstetrics History Last Filed Vital Signs Vital Sign Reading Time Taken Comments Blood Pressure 136/60 11/27/2017 10:44 AM CDT Pulse 60 11/27/2017 10:44 AM CDT Temperature 36.5 C (97.7 F) 04/23/2017 5:21 PM ELEMENTARY ELL TEACHER Respiratory Rate 20 11/27/2017 10:4 4 AM CDT Oxygen Saturation 96% 04/01/2014 8: 00 AM ELEMENTARY ELL TEACHER Inhaled Oxygen Concentration - - Weight 107.3 kg (236 lb 9.6 oz) 018 10:44 AM CDT Height 170.2 cm (5' 7) 11/27/2017 10:4 4 AM CDT Body Mass Index 37.06 11/27/2017 10:44 AM CDT Plan of Treatment Health Maintenance Due Date Last Done Comments Tdap 07/09/1956 Zoster (shingles) series for age 50+ (2 of 3) 05/14/2012 03/19/2012 Tetanus booster 01/09/2013 01/09/2003 Medicare Wellness for age 65+ 12/05/2017 12/04/2016, 11/25/2015 RSV vaccine for adults or (1 - 1-dose 75+ series) 07/09/2018 BMI (ht and wt on same day) for age 18+ 11/27/2018 11/27/2017, 04/04/2017, 12/04/2016, Additional history exists Depression screening for age 12+ 11/27/2018 11/27/2017, 12/04/2016, 11/25/2015 COVID-19 vaccine series ( season) 2023 Influenza Vaccine (#1) 2023 8, 12/04/2016, 11/25/2015, Additional history exists Pneumococcal series for age 50+ Completed 11/27/2017, 11/25/2015, 01/30/2006 Medical Devices Implanted Type Area Patient Experience Coordinator Device Identifier Shelf Expiration Date Model / Serial / Lot [id number] - [id number] Implanted:Qty: 1 on 03/30/2014 by Earle Irizarry MD at [facility] Right: Hip DEPUY 01/09/2024 [id number] / / [id number] Description:PINNACLE Griptio n Acetabular shell sector [id number] - [id number] Implanted:Qty: 1 on 03/30/2014 by Earle Irizarry MD at [facility] Right: Hip DEPUY 01/08/2019 [id number] / / [id number] Description:PINNACLE ALTRIX polyethylene acetabular liner [id number] - [id number] Implanted:Qty: 1 on 03/30/2014 by Earle Irizarry MD at [facility] Right: Hip DEPUY 10/09/2023 [id number] / / [id number] Description:APEX Hole elimin ator-PS [id number] - [id number] Implanted:Qty: 1 on 03/30/2014 by Earle Irizarry MD at [facility] Right: Hip DEPUY 01/08/2019 [id number] / / [id number] Description:CORAIL hip syste m cementless femoral stem KLA size 15 high offset collar [id number] - [id number] Implanted:Qty: 1 on 03/30/2014 by Earle Irizarry MD at [facility] Right: Hip DEPUY 05/08/2018 [id number] / / [id number] Description:M-Spec metal fem oral head Procedures Procedure Name Priority Date/Time Associated Diagnosis Comments LAB TRACKING EVENT Routine 05/04/2024 12 :00 PM ELEMENTARY ELL TEACHER PATH TISSUE EXAM Routine 05/04/2024 11:1 2 AM ELEMENTARY ELL TEACHER FOCUS Routine 05/04/2024 11:12 AM ELEMENTARY ELL TEACHER PATH TISSUE EXAM Routine 03/25/2024 1:25 PM ELEMENTARY ELL TEACHER LAB TRACKING EVENT Routine 03/25/2024 12 :00 PM ELEMENTARY ELL TEACHER from Last 3 Months Results * LAB TRACKING EVENT (05/04/2024 12:00 PM ELEMENTARY ELL TEACHER) Only the most recent of2 resultswithin the time period is included. Other (Other) Client Collect / Unknown 05/04/2024 12:00 PM ELEMENTARY ELL TEACHER 05/04/2024 10:18 PM ELEMENTARY ELL TEACHER Terrance Hutton MD LAB BILL ONLY Final Resu lt Performing Organization Address [facility] [[email or web address]] Co de Phone Number [facility] [address] [place] [address], [place] * FOCUS (05/04/2024 11:12 AM ELEMENTARY ELL TEACHER) Other (Melanoma) 05/04/2024 11:12 AM ELEMENTARY ELL TEACHER 05/11/2024 12:57 PM ELEMENTARY ELL TEACHER us Terrance Hutton MD LABORATORY Final Resu lt Performing Organization Address [facility] [[email or web address]] Co de Phone Number [facility] [employer] [facility] [address] [place] [address], [place] * PATH TISSUE EXAM (05/04/2024 11:12 AM ELEMENTARY ELL TEACHER) Only the most recent of2 resultswithin the time period is included. Case Report Pathology Report Case: [id number] Authorizing Provider: Terrance Hutton MD Collected: 05/04/2024 1112 Ordering Location: [facility] Received: 05/05/2024 1350 Pathologist: Felicita Garcia MD Specimen: Melanoma, right forearm reccurrent melanoma 05/20/2024 8:41 AM CDT [facility] [employer] LABORATORY-C ENTRAL LABORATORY Amendment 05/20/2024 - Amendment to report [facility] Cutaneous Melanoma Targeted BRAF Next Generation Sequencing results. Please see diagnosis and attached scanned report. 05/20/2024 8:41 AM CDT [employer] LABORATORY-C ENTRME LABORATORY Final Diagnosis SKIN, RIGHT FOREARM, EXCISION: 1. Central abscess and biopsy site changes, consistent with prior surgical procedures 2. Dermal melanoma deposit, 5 mm in greatest dimension, present adjacent to biopsy changes (consistent with in transit metastasis) a. Margin status: Negative b. No epidermal connection, consistent with clinical history of recurrent melanoma 3. Ancillary testing: a. NGS for BRAF: Negative; see attached report 05/20/2024 8:41 AM CDT [facility]-C [facility] Amendment electronically signed by Lisette Mackay MD on 05/20/2024 at 0841 CDT at 0951 ELEMENTARY ELL TEACHER Clinical Information Recurrent melanoma. Original diagnostic biopsy [id number]; recurrence/metasta ses excised [id number] 05/20/2024 8:41 AM CDT [facility] LAB[facility] Gross Description A) Received in formalin, labeled with the patient's name and right forearm recurrent melanoma, is a previously oriented wide skin ellipse, measuring 18 x 6 cm, excessive depth 01 0.3 cm. On skin surface, there is a slightly raised ortega-white nodular lesion present, measuring 2.5 x 1.2 cm and it is 1.3 cm from nearest skin edge. The remaining skin surfaces ortega-white and gross unremarkable. There is a single suture at 1 tip marking superior (12:00) and a double stitch marking lateral (9:00). The deep margin is inked as follows: 12 o'clock to 3 o'clock: Blue 3 o'clock to 6 o'clock: Green 6 o'clock to 9 o'clock: Red 9 o'clock to 12 o'clock: Yellow Deep margin: Black The specimen serially section from 12:00 to 6:00 revealing a ortega-white indurated mass (2.2 x 0.9 x 1.0 cm) grossly extending to the underlying subcutaneous adipose tissue and is 0.2 cm from the deep margin. Wetlands Conservation Laborer sections are submitted as follows: 1. Tips, en face 2. 12:00 pseudotip 3. 6:00 pseudotip 4-8. Skin 1 cm superior to lesion, submitted sequentially from 12:00 to 6:00 9-17. Skin lesion, submitted sequentially from 12:00 to 6:00 18-23. Skin 1 cm inferior to lesion, submitted sequentially from 12:00 to 6:00 Note: Bisected/trisected slices are submitted sequentially and the 3:00 edge of the mid section is inked orange. RICKY 05/05/2024 05/20/2024 8:41 AM [facility] Microscopic Description The final diagnosis is based on microscopic examination of appropriate sections of all specimens. The presence of multicolored ink is confirmed on tissue sections. 05/20/2024 8:41 AM [facility] Molecular Diagnostics Summary Preanalytical microdissection of tissue/cytology slides for Next Generation Sequencing was performed according to laboratory protocol as follows: Microscopic examination was performed by a pathologist, Dr. Khan, to determine specimen adequacy and identify areas of tumor for isolation. Areas of tumor selected and marked by the pathologist were manually harvested by a laboratory geneticist for nucleic acid extraction. 05/20/2024 8:41 AM [facility] [employer] [facility] SYNOPTIC REPORTING MELANOMA OF THE SKIN: Excision, Re-Excision MELANOMA OF THE SKIN: EXCISION, RE-EXCISION - All Specimens 8th Edition - Protocol posted: 01/18/2021 SPECIMEN Procedure: Excision Procedure: Re-excision Procedure: Kramer node(s) biopsy Procedure: Biopsy Specimen Laterality: Right TUMOR Tumor Site: Skin of upper limb and shoulder: Forearm Histologic Type: Superficial spreading melanoma (low-cumulative sun damage (CSD) melanoma) Maximum Tumor (Breslow) Thickness (Millimeters): 2.8 mm Macroscopic Satellite Nodule(s): Present Ulceration: Not identified Anatomic (Bo) Level: IV (Melanoma invades reticular dermis) Mitotic Rate: 3 mitoses per mm2 Microsatellite(s) : Not identified Lymphovascular Invasion: Not identified Neurotropism: Not identified Tumor Regression: Not identified MARGINS: Margin Status for Invasive Melanoma: All margins negative for invasive melanoma Distance from Invasive Melanoma to Deep Margin: 7 mm Margin Status for Melanoma in situ: All margins negative for melanoma in situ REGIONAL LYMPH NODES: Regional Lymph Node Status: : All regional lymph nodes negative for tumor Total Number of Lymph Nodes Examined: 3 Number of Kramer Nodes Examined: 1 DISTANT METASTASIS: Distant Site(s) Involved: Skin, subcutaneous tissues, soft tissues including muscle and / or nonregional lymph nodes: Skin of right forearm PATHOLOGIC STAGE CLASSIFICATION (pTNM, AJCC 8th Edition): : Classification assigned in this report includes information from a prior procedure: [id number], [id number], [id number] TNM Descriptors: r (recurrence or retreatment) pT Category: pT3a pN Category: pN1c 05/20/2024 8:41 AM CDT [facility] LABORAT[facility]-C ENTRAL LABORATORY Additional Information Interpreted at [facility] - [address] [facility] [address] [address] 05/20/2024 8:41 AM CDT [facility] LABORATORY-C ENTRAL LABORATORY Other (Melanoma) 05/04/2024 11:12 AM ELEMENTARY ELL TEACHER 05/05/2024 1:50 PM ELEMENTARY ELL TEACHER Terrance Hutton MD PATHOLOGY/CYTOLOGY Edited Result - Final [facility]-CENTRAL LABORATORY [address] [place] [address], from Last 3 Months Insurance ActiveO PB ONLY MEDICARE PART B HB ONLY MEDICA PRIME SOLUTION HB MEDICA PRIME SOLUTIONS MEDICARE PART A HB ONLY MEDICARE PART B HB ONLY Care Teams Fire Support Specialist Relationship Specialty Start Date End Date Bejarano, Robe Chidi, MD [address] [place] [address] PCP - General 01/30/06
== END 2024-05-28 13:33 | disposition home or self-care (01) ==
PROVIDERS: Emergency Provider Emergency Medicine Emergency Medical Services; PCP Family Medicine
DX: S01.81XA Laceration without foreign body of other part of head, initial encounter (principal); W19.XXXA Unspecified fall, initial encounter
CPT/HCPCS: 70486; 99284

== ENCOUNTER 2024-06-04 15:21 | Outpatient (CLI) | payer MEDICARE, OTHER, SELFPAY ==
--- NOTE | 2024-06-04 16:00 | CRLHL7_ITS ---
For Patients: As a result of the 21st Century Cures Act, medical imaging exams and procedure reports are released immediately into your electronic medical record. You may view this report before your referring provider. If you have questions, please contact your health care provider. EXAM: FDG PET-CT Whole Body CLINICAL INFORMATION: 78-year-old man. History of right forearm melanoma status post excision 02/12/2023. 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 Restaging. TECHNIQUE: Radiopharmaceutical: 18F-fluorodeoxyglucose (18F-FDG) Dose: 13.29 M[employer]ie Blood glucose: 98 mg/dL. Image acquisition: At approximately 60 minutes following IV tracer administration via a right hand vein, positron emission tomography was performed from the vertex of the skull through the feet. Non-contrast low-dose helical CT imaging was performed over the same range without breath-hold for attenuation correction of PET images and anatomic correlation; it is neither sufficient, nor should it be substituted for diagnostic purposes. COMPARISON: Brain MRI 04/24/2024. FINDINGS: Mediastinal blood pool FDG uptake: SUVMax 2.6 (image 145) Liver background parenchymal FDG uptake: SUVMax 3.5 (image 195) HEAD AND NECK: Prior right frontal scalp excision, without abnormal increased FDG uptake in the resection bed. Near complete opacification of the left maxillary sinus, with associated FDG uptake likely inflammatory. No other abnormal FDG uptake in the imaged head and neck. Bilateral lens replacements. CHEST: Ports and devices: None. Lungs: No abnormal FDG uptake. Calcified granuloma and right upper lobe. Pleura: No abnormal FDG uptake. Thoracic lymph Nodes: No abnormal FDG uptake. Mediastinum: No abnormal FDG uptake. Coronary artery calcifications. Atherosclerotic calcifications of the thoracic aorta. Moderate to large hiatal hernia containing the gastric fundus and body, with stomach in organoaxial position. Breasts/Chest Wall: No abnormal FDG uptake. ABDOMEN/PELVIS: Liver/biliary system: No abnormal FDG uptake. Calcified hepatic granuloma. Pancreas: No abnormal FDG uptake. Spleen: No abnormal FDG uptake. Adrenal Glands: No abnormal FDG uptake. Kidneys: No abnormal FDG uptake. Bowel: No abnormal FDG uptake. Colonic diverticulosis. Mesentery, Omentum and Peritoneum: No abnormal FDG uptake. Atherosclerotic calcifications. Pelvic Organs: No abnormal FDG uptake. Abdominopelvic Lymph Nodes: No abnormal FDG uptake. Musculoskeletal/Lower extremities: *Moderately FDG avid lytic lesion in the left iliac wing SUVMax 5.0 (Image 260) *Asymmetrically increased moderate FDG uptake in cutaneous and subcutaneous tissues of the right forearm likely related to tracer injection in the right hand. This obscures evaluation for cutaneous lesions with low-level moderate FDG uptake. Within these limitations, no definite sites of focal increased FDG uptake are seen in the left upper extremity. *Moderate FDG uptake with cutaneous thickening in the lateral left foot, adjacent to the left 5th metatarsophalangeal joint. SUVMax 4.8 (Image 66). *Moderately FDG avid cutaneous thickening adjacent to the left 1st metatarsophalangeal joint, likely inflammatory. SUVMax 4.3 (Image 621) Mild focal cutaneous uptake in the left inguinal fold without definite CT correlate SUVMax 2.9 (Image 323). Right hip arthroplasty. Degenerative changes in the left shoulder, knees (right greater than left) and ankles. Multilevel degenerative changes in the spine. IMPRESSION: 1. Moderately FDG avid lytic lesion in the left iliac wing raises concern for a site of osseous metastatic disease. 2. No definite evidence of metabolically active residual or recurrent cutaneous lesions in the right forearm, within the limitations from radiotracer injected in the right hand vein on today`s study (see findings). Contralateral upper extremity injection of radiotracer is recommended for future follow-up FDG PET-CT studies. 3. No evidence of locally recurrent metabolically active malignancy in the right scalp. 4. Moderately FDG avid cutaneous thickening in the lateral left foot adjacent to the left 5th metatarsophalangeal joint, likely inflammatory. Moderate FDG uptake in the medial left foot adjacent to the left 1st metatarsophalangeal joint is likely inflammatory. Correlate with direct visual inspection at the sites. 5. Mild focal cutaneous uptake in the left inguinal fold without definite CT correlate may represent contamination from excreted radiotracer versus inflammatory uptake. Correlate with direct visual inspection. Dictated by Zaid Alicea MD @ 06/05/2024 4:33:04 PM (Electronically Signed)
== END 2024-06-04 15:22 | disposition home or self-care (01) ==
LOC: RAD 15:22
PROVIDERS: PCP Family Medicine; Visit Provider Surgery
DX: C43.61 Malignant melanoma of right upper limb, including shoulder (principal)
CPT/HCPCS: 78816; A9552

== ENCOUNTER 2024-07-01 15:05 | Outpatient (CLI) | payer MEDICARE, OTHER, SELFPAY | END 2024-07-01 15:06 | disposition home or self-care (01) | LOC: NFLDREF 07-03 01:14 | PROVIDERS: PCP Family Medicine; Referring Provider Family Medicine; Visit Provider Surgery | DX: T81.49XA Infection following a procedure, other surgical site, initial encounter (principal) | CPT/HCPCS: 87070; 87186 ==

== ENCOUNTER 2024-07-06 07:28 | Day surgery (SDC) | payer MEDICARE, OTHER, SELFPAY ==
[2024-07-06] MEDS: LACTATED RINGERS 1000 ML 1,000 ML 100 ML IV (07:45)
[2024-07-06] MEDS: SODIUM CHLORIDE 0.9 % (FLUSH) 10 ML SYRINGE IVF (07:45)
[2024-07-06 07:46] VITALS: BP 136/69; PULSE 65; RESP 16; TEMP 37; O2SAT 98; BMI 36.6
--- NOTE | 2024-07-06 07:53 | SUR.PREOP ---
Danielle Salazar RN inspecting right arm wounds to proceed with surgery. Dr. Hutton consulted.
--- NOTE | 2024-07-06 09:00 | CRLHL7_ITS ---
For Patients: As a result of the Cures Act, medical imaging exams and procedure reports are released immediately into your electronic medical record. You may view this report before your referring provider. If you have questions, please contact your health care provider. Indication: Port-A-Cath placement. Technique: Fluoroscopic guidance was utilized by Dr. Hutton 4 right-sided chest port placement. Two fluoroscopic spot images were recorded. 46 seconds of fluoroscopy time was utilized. Comparison: None. Findings: A right chest wall port catheter tip is seen superimposed over the region of the lower SVC. Dictated by Edgardo Carrasco MD @ 07/07/2024 2:16:36 PM (Electronically Signed)
--- NOTE | 2024-07-06 10:15 | CRLHL7_ITS ---
For Patients: As a result of the Century Cures Act, medical imaging exams and procedure reports are released immediately into your electronic medical record. You may view this report before your referring provider. If you have questions, please contact your health care provider. Indication: Postop Port-A-Cath placement. Technique: Portable AP upright view of the chest. Comparison: None. Findings: A right-sided chest port has been placed with catheter tip superimposed over the lower SVC. No pneumothorax or pleural effusion is identified. The lungs are clear. The cardiomediastinal silhouette and pulmonary vasculature are within normal limits. Impression: Status post placement of right chest wall port with catheter tip superimposed over the lower SVC. Dictated by Edgardo Carrasco MD @ 07/07/2024 2:17:44 PM (Electronically Signed)
--- NOTE | 2024-07-06 10:30 | W.PM.H&PU ---
History & Physical Update History & Physical Update H&P Reviewed and patient assessed: No changes noted H&P Updates: Patient's incisions and right forearm wound did not have any signs of infection. Patient will continue taking Bactrim. Will proceed with port placement today.
[2024-07-06] MEDS: CEFAZOLIN 1 GM inj IVP (10:45)
[2024-07-06] MEDS: HEPARIN 500 UNIT/5 ML SYRINGE IVF (11:06)
[2024-07-06] MEDS: BUPIVACAINE 0.25% 30 ML INJECTION (11:06)
[2024-07-06] MEDS: LIDOCAINE 1%-EPI 1:100,000 20 ML INFILTRATI (11:06)
[2024-07-06] MEDS: 0.9% SODIUM CHL 50 ML VIAL INJECTION (11:06)
[2024-07-06 11:40] VITALS: BP 120/61; PULSE 66; RESP 16; TEMP 36.3; O2SAT 96
--- NOTE | 2024-07-06 11:42 | P.ANES_ITS ---
Anesthesia Charges Start Date/Time Anesthesia Start Date: 07/06/24 Anesthesia Start Time: 10:35 Stop Date/Time Anesthesia Stop Date: 07/06/24 Anesthesia Stop Time: 11:40 Summary Extremes of Age - Over 70 or under 1: FINISHED STOCK INSPECTOR Coding CPT Codes CPT Codes: ANESTH VASCULAR ACCESS - 48904 ([id number]) P3 - PATIENT W/SEVERE SYS DISEASE, QK - TRAVEL CONSULTANT 2-4 CNCRNT ANES PROC, QX - FINISHED STOCK INSPECTOR SVC W/ MD MED DIRECTION Additional Codes: Summary - Extremes of Age - Over 70 or under 1: FINISHED STOCK INSPECTOR ([id number])
--- NOTE | 2024-07-06 11:42 | W.ANESCHARGE ---
Anesthesia Charges Start Date/Time Anesthesia Start Date: 07/06/24 Anesthesia Start Time: 10:35 Stop Date/Time Anesthesia Stop Date: 07/06/24 Anesthesia Stop Time: 11:40 Summary Extremes of Age - Over 70 or under 1: HEALTHCARE SCIENCE SPECIALIST Coding CPT Codes CPT Codes: ANESTH VASCULAR ACCESS - 26365 ([id number]) P3 - PATIENT W/SEVERE SYS DISEASE, QK - QUALITY ASSURANCE COORDINATOR 2-4 CNCRNT ANES PROC, QX - HEALTHCARE SCIENCE SPECIALIST SVC W/ MD MED DIRECTION Additional Codes: Summary - Extremes of Age - Over 70 or under 1: HEALTHCARE SCIENCE SPECIALIST ([id number])
[2024-07-06 11:45] VITALS: BP 125/59; PULSE 62; RESP 16; O2SAT 96
--- NOTE | 2024-07-06 11:46 | W.ANESCHARGE ---
Anesthesia Charges Start Date/Time Anesthesia Start Date: 07/06/24 Anesthesia Start Time: 10:35 Stop Date/Time Anesthesia Stop Date: 07/06/24 Anesthesia Stop Time: 11:40 Summary Extremes of Age - Over 70 or under 1: MDA Coding CPT Codes CPT Codes: ANESTH VASCULAR ACCESS - 01100 ([id number]) QK - BOX FOLDING MACHINE OPERATOR 2-4 CNCRNT ANES PROC, QX - MAINTENANCE ASSISTANT SVC W/ MD MED DIRECTION, P3 - PATIENT W/SEVERE SYS DISEASE Additional Codes: Summary - Extremes of Age - Over 70 or under 1: MDA ([id number])
--- NOTE | 2024-07-06 11:50 | P.GSOP_ITS ---
Operative Note Date of procedure: 07/06/24 Pre-op diagnosis: 1. 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 2. Desire for immunotherapy. Post-op diagnosis: Same Type of Procedure: 1. Right internal jugular Port-A-Cath placement under ultrasound and fluoroscopy guidance. Indications: 78-year-old male who underwent excision of right arm melanoma in the last 2 years presented with recurrent right forearm melanoma s/p wide local excision of recurrence with full-thickness skin graft. Patient was seen by Oncology and immunotherapy was recommended. Patient was scheduled for Port-A-Cath placement but developed stitch abscesses and infections at his left upper arm donor site and right forearm skin graft. Patient was treated with antibiotics and the infection has been controlled. Patient presents today for Port-A-Cath placement. Today his incisions do not have any signs of infection. He still has 2 open areas in the right forearm with no sign of infection. The procedure was discussed in detail. The risks associated procedure including infection, bleeding, and pneumothorax were all discussed with the patient, he agreed to proceed. Procedure Description: After discussing the risks and benefits of the procedure, the patient signed inf ormed consent.? The operative site was marked and the patient was brought to the operating room and placed on the operating table in supine position.? Care was taken to pad the patient's pressure points.?? The patient was then sedated by anesthesia.?? The operative site was then prepped and draped in the usual sterile fashion.? A time-out was then performed. Ultrasound was brought on to the field and the right internal jugular vein was assessed. This was found to be large and easily compressible and was overlying the right carotid artery. The base of the neck directly overlying the internal jugular vein was then anesthetized with 1% lidocaine and 0.25% Marcaine mixture, and an introducer needle was inserted into the internal jugular vein using ultrasound guidance. Entry into the vein was confirmed by the presence of dark, nonpulsatile blood. A guide wire was advanced through the needle. The introducer needle was removed, leaving the wire in place. Fluoroscopy was brought onto the field and used to confirm the passage of the wire through the superior vena cava and into the inferior vena cava. Lidocaine was then used to infiltrate the port skin site, along with the proposed tunneling tract. A 3 cm incision was made at the site of the port pocket and subcutaneous tissue was dissected down using electrocautery. Subcutaneous pocket was created with blunt dissection and electrocautery. The catheter was advanced through the subcutaneous tissue using a tunneling trocar, exiting the incision at the base of the neck. The trocar was then disconnected. Fluoroscopy was again brought on to the field and the internal jugular vein and adjacent subcutaneous tissue was dilated with a pre-split introducer sheath in place. The wire was removed and the catheter was inserted into the introducer sheath. As the catheter was advanced, the sheath was split and divided, removing the sheath as the catheter was advanced into place. Fluoroscopy was again brought on to the field and the catheter position was examined. The entire course of the catheter was then viewed, and catheter was pulled back under direct visualization to ensure that the tip is in the SVC. The port was connected to the catheter tip and placed into previously created pocket. Prolene was used to place anchoring port sutures and the port was then secured in the pocket. The flow through the catheter was checked with a syringe, and found to be excellent. The incision at the base of the neck was then closed with a single interrupted 4-0 monocryl stitch and dressed with a Steri-Strip and a sterile bandage. Subdermal layer was re-approximated with interrupted 3-0 vicryl stitches and skin over the port was closed with 4-0 monocryl using subcuticular stitch. Herrera needle was inserted through the skin into the port and the port was flushed with heparinized saline. The port was left accessed. Steri strips, sterile 2x2 and 4 x 4 as well as Tegaderm was applied over the incision. The patient was then roused and brought to same day surgery in satisfactory condition. Sponge and needle counts were correct at the end of the procedure. Post procedure CXR was ordered to be done in same day surgery. Sterile dressings were then applied. Findings: Easily compressible right IJ. Anesthesia: MAC and local Surgeon: Terrance Hutton MD Estimated blood loss (mL): 10 Condition: stable Disposition: same day
[2024-07-06 12:00] VITALS: BP 127/65; PULSE 62; RESP 16; O2SAT 96
[2024-07-06 12:15] VITALS: BP 122/59; PULSE 60; RESP 16; O2SAT 96
[2024-07-06 12:30] VITALS: BP 119/57; PULSE 65; RESP 16; O2SAT 96
== END 2024-07-06 12:40 | disposition home or self-care (01) ==
PROVIDERS: PCP Family Medicine; Visit Provider Surgery
PROC: (CPT 36561; principal; 2024-07-06 10:15)
DX: Z45.2 Encounter for adjustment and management of vascular access device (principal); C43.61 Malignant melanoma of right upper limb, including shoulder
CPT/HCPCS: 36561; 00532; 71045; 76000; 76998; 99100; C1788; J0665; J0690; J1100; J1642; J2405; J2704; J3010; J3490; J7120

== ENCOUNTER 2024-07-22 13:00 | Outpatient (RCR) | payer MEDICARE, OTHER, SELFPAY ==
--- NOTE | 2024-07-03 15:33 | PT.OPEX ---
PT [facility] Outpatient Eval PT [facility] Outpatient Eval Start: 07/03/24 10:58 Freq: Status: Active Protocol: Document 07/03/24 12:48 HLA (Rec: 07/03/24 15:27 HLA [id number]) E-signed By Bozena Holly PT, DPT Physical Therapy Outpatient Evaluation Insurance Information Insurance Name Medicare B Medical Diagnosis B LE lymphedema/balance, falls , not cancer related, current melanoma treatment; PMHx of BPH, hyponatremia, Baastrup's syndrome, stroke, B OA knees, hyperlipidemia, falls, HTN, OA L hip, gout, and GERD Treating Diagnosis pain, weakness, amb difficulties, falls Imaging Report Information melanoma R arm, superficial spreading melanoma. Referring MD Barron Subjective Preferred Name Kaushik Subjective Pt reports having a nightmare, got up in the night and fell onto his L arm. Got himself back up. Saw Dr. Barron from oncology regarding his ongoing melanoma and she ordered physical therapy. Pt today states, My body is falling apart. He reports L hip pain after a recent biopsy. Pain R knee from Apr fall 'chasing my cat' and twisted the R knee falling. States he is doing ok at home, recently got some lymphedema stockings and they are hard to get on. Can get his shoes on. Takes a sponge bath. He does his own meds. cooks and drives. Pain Comments pain L hip from biopsy, R knee from fall Date of Last Physician Visit 06/10/24 Current Work Status Retired Precautions Treatment Precautions/Contraindications melanoma, L hip lesion, biopsy , hx of stroke Weight Bearing Status Weight Bear as Tolerated Therapy Limitations/Systems Review Hearing Objective Range of Motion UEs shldr flex 0-90, abd 0-90, ER/IR full, elbow/wrists/ hands full LEs B hips 20-100 degrees flex, ER/IR 0-40 B, knees 10- 100 flex B, ankle DF L to 10, R to 5, PF to 45 B trunk, fwd bend 20 degrees Strength shldrs B 3+/5 B elbow/wrist/hands 5/5 B Hips 4/5 hip flex/abd/ext B knees knee flex/ext 4/5 B ankles 3+/5 DF 4/5 Swelling feet to upper calves, wears stockings, elevates at home Palpation pain on palpation L hip, R knee Balance & Gait Gait flexed at waist 30 degrees, short steps, flexed at hips and knees, uses cane. 100 feet x 3 5 time sit<>stand 33.38 sec- shows fall risk Functional reach 7.5 inches- shows fall risk TUG 18 sec shows fall risk Posture flexed fwd at waist, head down towards chest, flexed hips/ knees with gt. Sensation/Reflexes intact to light touch Functional Test Performed & Score 5 time sit<>stand 33.38 sec- shows fall risk Functional reach 7.5 inches- shows fall risk TUG 18 sec shows fall risk Assessment Assessment/Impression Kaushik is an 78 usep-lgi-iour wtih melanoma, recent biopsies and plan for port placement with immune therapy optivo. PMHx includes BPH, hyponatremia, Baastrup's syndrome, stroke, B OA knees, hyperlipidemia, falls, HTN, OA L hip, gout, and GERD Pt was referred to PT due to falls, weakness. Had referral to OT for LE lymphedema mgmt and is wearing stockings. Pt lives with his in their own home, ind ADLs except challenges getting his lymphedema stockings on. He sponge bathes, no shower. Pt uses a 4ww in the house, cane when he goes out. Sleeps in a recliner. He presents with hip and knee flex contractures, stooped posture with gt, flexed knees. Strength 4/5 overall. Balance testing shows fall risk with TUG 18 sec, 5 time sit<>stand 33.38 sec and Functional reach 7.5 inches. Tried ex to stretch and strengthen in supine, pt unable to tolerate lying flat and has posture consistent with recliner sleeping. Pt was able to do ex for strengthening seated and began some standing balance ex. We discussed increasing his amb, up every 1-2 hours during the day short bouts and doing his ex 1-2x/day with the goal of adding more balance work in as he becomes a bit more limber and stronger. PT to see pt weekly to work on balance, strength, gt, and fall prevention. Primary Functional Limitations impaired ROM, impaired strength, impaired gt, fall risk Plan of Care Rehabilitation Potential Good Physical Therapy Goals Within 6 weeks Pt will have 5/5 strength of LEs, pain free for ADLS, ambulation level surfaces and stairs. Pt will be able to amb 20 min pain free for mobility in the community. Pt will be independent in home ex program for strengthening, ROM and mobility to reduce fall risk Pt will demonstrate 9 point increase in LEF scale ( functional gain). Coordination/Communication With Referral Source Treatment Plan/Direct Interventions Compression Garments,Gait Training,Heat,Manual Therapy, Neuromuscular Re-ed,Orthotics/ Braces,Self-Care/Home Management,Therapeutic Activities,Therapeutic Exercises Patient Will Be Discharged From Therapy Completion of LTG(s),Skills Plateau,Independent w/HEP, Independently Progressing Evaluation Billing Untimed Code Treatment Minutes 20 PT Eval No Charge No Complexity Low Certification Information Initial Certification Date 07/03/24 Ending Certification Date 09/30/24 Provider Signature Required Yes Provider Signature Shows Agreement With POC & Medical Necessity Physician NPI Number Write NPI# Here Physician Comment/Change : Physician Signature & Date Requested Please Sign/Date Here
== END 2024-07-22 13:46 | disposition home or self-care (01) ==
PROVIDERS: PCP Family Medicine; Visit Provider Internal Medicine Hematology & Oncology
DX: I89.0 Lymphedema, not elsewhere classified (principal); Z51.89 Encounter for other specified aftercare
CPT/HCPCS: 97110; 97112; 97161; 97165; 97530

== ENCOUNTER 2024-09-03 09:20 | Outpatient (CLI) | payer MEDICARE, OTHER, SELFPAY ==
--- NOTE | 2024-09-03 09:00 | CT_ITS ---
Patient: REGLA GALVEZ Facility:?[facility] RIS Patient ID:?[id number] Site Patient ID:?[id number]. Site :?[id number] Study:?CT-Chest w/o-09/03/2024 9:47:45 AM Ordering Physician:Clarisa Mendieta Final Report: Indication: Cough, unspecified Technique: CT chest without IV contrast Comparison: None Findings: Suspected low-density left thyroid nodule measuring approximately 1.5 centimeters in greatest dimension incompletely assessed on this exam. No thoracic lymphadenopathy. The heart is normal in size. No pericardial effusion. Right IJ approach port catheter with tip overlying the upper to mid SVC. Coronary artery calcifications. The thoracic aorta and pulmonary artery are normal in caliber. Trace biapical pleural/parenchymal scarring. Trace right posterior basilar linear atelectasis. No focal airspace consolidation, pleural effusion, or pneumothorax. No emphysematous or fibrotic changes. There are sub 6 millimeter solid pulmonary nodules bilaterally, likely benign. There are few small calcified granulomas bilaterally. No suspicious pulmonary nodules or masses. Likely some minimal secretions seen in the upper trachea; otherwise, the airways are clear. The imaged upper abdomen is without acute abnormality. Moderate-sized hiatal hernia. Calcified granulomas in the liver and spleen. The soft tissues are unremarkable. Degenerative changes of the spine. Impression: 1. No CT evidence of an acute process involving the thorax. 2. No emphysematous or fibrotic changes. 3. Suspected low-density left thyroid nodule measuring approximately 1.5 centimeters in greatest dimension incompletely assessed on this exam. Recommend outpatient thyroid ultrasound if not recently performed. 4. There are few solid, sub 6 millimeter pulmonary nodules bilaterally, likely benign. If patient is at high risk for developing lung malignancy consider optional CT chest in 1 year; otherwise, no routine follow-up imaging is needed. Please note that all CT scans at this facility use dose modulation, iterative reconstruction, and/or weight-based dosing when appropriate to reduce radiation dose to as low as reasonably achievable. Dictated by Murray Pisano MD @ 09/03/2024 10:27:30 AM Signed by:?Murray Pisano MD @09/03/2024 10:27:30 AM (Electronic Signature)
== END 2024-09-03 09:21 | disposition home or self-care (01) ==
LOC: CT 09:21
PROVIDERS: PCP Family Medicine; Visit Provider Physician Assistant
DX: R05.9 Cough, unspecified (principal); E04.1 Nontoxic single thyroid nodule; R91.8 Other nonspecific abnormal finding of lung field; R06.00 Dyspnea, unspecified; C43.9 Malignant melanoma of skin, unspecified; C43.62 Malignant melanoma of left upper limb, including shoulder; I89.0 Lymphedema, not elsewhere classified; R26.89 Other abnormalities of gait and mobility
CPT/HCPCS: 71250

== ENCOUNTER 2024-11-05 14:15 | Outpatient (CLI) | payer MEDICARE, OTHER, SELFPAY ==
--- NOTE | 2024-11-05 15:00 | CRLHL7_ITS ---
For Patients: As a result of the 21st Century Cures Act, medical imaging exams and procedure reports are released immediately into your electronic medical record. You may view this report before your referring provider. If you have questions, please contact your health care provider. EXAM: FDG PET-CT Whole Body CLINICAL INFORMATION: 79-year-old man with history of melanoma. Interval excision of recurrent right forearm melanoma 05/04/2024. Restaging TECHNIQUE: Radiopharmaceutical: 18F-fluorodeoxyglucose (18F-FDG) Dose: 12.82 MilliCurie. Blood glucose: 131 mg/dL. Image acquisition: At approximately 60 minutes following IV tracer administration via an access port, positron emission tomography was performed from the vertex of the skull to the feet. Non-contrast low-dose helical CT imaging was performed over the same range without breath-hold for attenuation correction of PET images and anatomic correlation; it is neither sufficient, nor should it be substituted for diagnostic purposes. COMPARISON: FDG PET-CT 06/04/2024. FINDINGS: Mediastinal blood pool FDG uptake: SUVMax 2.4 (Image 149) Liver background parenchymal FDG uptake: SUVMax 3.1 (Image 197) PET Findings: Prior right frontal scalp excision. No abnormal increased FDG uptake in the resection bed. New 0.7 x 0.4 cm cutaneous mildly FDG avid lesion in the right lateral scalp SUVMax 2.7 (301:22, 202:20). Faint to mild FDG uptake in cutaneous and subcutaneous tissues of the right forearm SUVMax 2.5 (301:238, 202:236) is favored to be postoperative/post-radiation reactive/inflammatory change. Moderate linear FDG uptake in a skeletal muscle in the dorsal right forearm SUVMax 5.7 (301:227, 202:225), nonspecific but favored to be inflammatory/physiologic. *New moderate focal cutaneous uptake in the right dorsal midfoot without CT correlate likely inflammatory SUVMax 4.4 (301:616, 202:614) *Decreased mild FDG avid cutaneous thickening adjacent to the left 1st metatarsophalangeal joint, likely resolving inflammatory change SUVMax 2.8 (301:617, 202:615) previously SUV max 4.3. *Decreased moderate FDG uptake with cutaneous thickening in the lateral left foot, adjacent to the left 5th metatarsophalangeal joint SUVMax 3.3 (301:622, 202:620) previously SUVmax 4.8. *Resolved mild focal cutaneous uptake in the left inguinal fold, consistent with resolved contamination. No abnormal FDG avid lymphadenopathy. No abnormal focal increase FDG uptake in the visualized skeleton. *Decreased faint FDG uptake at a lytic lesion in the left iliac wing SUVMax 2.3 (301:257, 202:255) previously SUVMax 5.0. Near complete opacification of the left maxillary sinus, with associated FDG uptake likely inflammatory. Tracer uptake elsewhere is physiologic. Non-PET findings: Bilateral lens replacements. Coronary artery calcifications. Atherosclerotic calcifications of the thoracic and abdominal aorta. Moderate to large hiatal hernia containing the gastric fundus and body. Sequela of granulomatous disease. Colonic diverticulosis. Right hip arthroplasty. Degenerative changes in the left shoulder, knees (right greater than left) and ankles. Multilevel degenerative changes in the spine. IMPRESSION: 1. Decreased faint FDG avidity of a lytic lesion in the left iliac wing. Given negative biopsy from 06/18/2024 fine-needle aspiration, this may represent resolved nonspecific FDG uptake at a benign fibro-osseous lesion. Differential considerations include posttreatment change in osseous metastatic disease that was not sampled during the FNA, although this is less likely. 2. Faint to mild FDG uptake in cutaneous and subcutaneous tissues of the right forearm is favored to be postoperative/post-radiation reactive/inflammatory change. Moderate linear FDG uptake in a skeletal muscle in the dorsal right forearm is nonspecific but favored to be inflammatory/physiologic. 3. Decreased FDG uptake associated with cutaneous thickening adjacent to the left 1st metatarsophalangeal joint and in the lateral left foot, adjacent to the left 5th metatarsophalangeal joint, likely resolving inflammatory change. 4. Resolved mild focal cutaneous FDG uptake in the left inguinal fold, consistent with resolved contamination. 5. New 0.7 x 0.4 cm cutaneous mildly FDG avid lesion in the right lateral scalp, likely inflammatory. Correlate with direct inspection. 6. New moderate focal cutaneous uptake in the right dorsal midfoot without CT correlate is likely inflammatory. Correlate with direct inspection. 7. Near complete opacification of the left maxillary sinus. This is compatible with sinusitis in the appropriate clinical setting. Dictated by Zaid Alicea MD @ 11/06/2024 11:02:50 PM (Electronically Signed)
== END 2024-11-05 14:16 | disposition home or self-care (01) ==
LOC: RAD 14:16
PROVIDERS: PCP Family Medicine; Visit Provider Physician Assistant
DX: C43.61 Malignant melanoma of right upper limb, including shoulder (principal); L98.8 Other specified disorders of the skin and subcutaneous tissue
CPT/HCPCS: 78816; A9552

== ENCOUNTER 2024-11-10 14:30 | Outpatient (RCR) | payer MEDICARE, OTHER, SELFPAY ==
--- NOTE | 2024-06-16 14:15 | ONC.NURNOTE ---
Pt had been scheduled for labs and Pembrolizumab teaching today at 2:00 PM following a Radiation consult at 1:00 PM. Pt did not arrive for his visit so called [facility] and pt had just arrived for his consult there. Pt's infusions aren't to start until the first week of July, so his labs/teaching appointment was moved to the last week of June. Rashmi at [facility] will pass this appt info along to Kaushik as he was right there in their clinic.
--- NOTE | 2024-06-24 09:52 | URNOTE ---
Request received for authorization for Nivolumab/Opdivo ([id number]). Prior authorization is not required as services are based on medical necessity and follow Medicare guidelines. Active Medica Supplement on file.
[2024-07-07 11:51] LABS: Albumin* 3.9 g/dL (3.3-5.0); Chloride* 102 mmol/L (96-114); Potassium* 4.1 mmol/L (3.6-5.1); Sodium* 135 mmol/L (135-149)
--- NOTE | 2024-07-07 11:51 | ONC.NURNOTE ---
Optivo teaching with and patient reviewed reporting changes right away to the [facility] nurses-reviewed self care at home- reviewed contents of new patient treatment binder-treatment schedule discussed temp over 100.5 and ER management reviewed calendar of appts questions addressed consents and SONYA reviewed and signed over 75 minutes spent covering this material port placed yesterday- site clear with steris intact- pt arrived with port accessed from surgery labs drawn and port flushed and deaccessed discussed removing gauze dressing later today that was placed after needle d/anna incision covered with intact steri strips
[2024-07-07 11:54] LABS: Alanine Aminotransferase* 19 U/L (4-50); Alkaline Phosphatase* 74 U/L (40-150); Anion Gap 7 mEq/L (7-15); Aspartate Amino Transferase* 35 U/L (12-35); Bilirubin Total* 0.5 mg/dL (0.1-1.5); Blood Urea Nitrogen* 16 mg/dL (7-30); Calcium* 8.6 mg/dL (8.4-10.6); Carbon Dioxide* 26 mmol/L (20-32); Creatinine* 1.2 mg/dL (0.5-1.5); Est. Creatinine Clearance* 44.31; Estimated Glomerular Filt Rate 61 ml/min; Glucose* 101 mg/dL (60-115); Total Protein* 6.4 g/dL (6.0-8.3)
[2024-07-07 12:04] LABS: Hematocrit 31.9 % (37.0-53.0); Hemoglobin* 10.3 gm/dL (13.5-17.5); Immature Granulocytes Abs Auto 0.01 K/uL (0.00-0.30); Immature Granulocytes Pct Auto 0.2 %; Mean Corpuscular HGB Conc 32 gm/dL (32-36); Mean Corpuscular Hemoglobin 28 pg (26-34); Mean Corpuscular Volume 88 fL (80-100); RDW Coefficient of Variation % 16.0 % (11.5-15.5); Red Blood Count 3.63 m/uL (4.30-5.90); White Blood Count* 5.31 K/uL (4.50-11.00)
[2024-07-07 12:05] LABS: Lymphocytes Absolute Auto 0.80 K/uL (0.90-2.90); Slide Review Reflex No
[2024-07-14] MEDS: SODIUM CHLORIDE 0.9 % (FLUSH) 10 ML SYRINGE IVF ×2 (12:00→13:15)
[2024-07-14] MEDS: NIVOLUMAB 480 MG, TUBING PRIMARY 1 EACH, In-line 0.2 micron filter set 1 EACH in 0.9 % ... 148 MG IVPB (12:10)
[2024-07-14] MEDS: HEPARIN 500 UNIT/5 ML SYRINGE IVF (13:15)
[2024-08-12 08:39] LABS: Hematocrit 35.4 % (37.0-53.0); Hemoglobin* 11.2 gm/dL (13.5-17.5); Immature Granulocytes Abs Auto 0.00 K/uL (0.00-0.30); Immature Granulocytes Pct Auto 0.0 %; Mean Corpuscular HGB Conc 32 gm/dL (32-36); Mean Corpuscular Hemoglobin 28 pg (26-34); Mean Corpuscular Volume 87 fL (80-100); RDW Coefficient of Variation % 15.5 % (11.5-15.5); Red Blood Count 4.06 m/uL (4.30-5.90); White Blood Count* 7.00 K/uL (4.50-11.00)
[2024-08-12 08:43] LABS: Lymphocytes Absolute Auto 1.10 K/uL (0.90-2.90)
[2024-08-12 08:44] LABS: Slide Review Reflex No
[2024-08-12 09:01] LABS: Albumin* 4.2 g/dL (3.3-5.0); Chloride* 105 mmol/L (96-114); Potassium* 3.3 mmol/L (3.6-5.1); Sodium* 139 mmol/L (135-149)
[2024-08-12 09:03] LABS: Blood Urea Nitrogen* 21 mg/dL (7-30); Creatinine* 1.2 mg/dL (0.5-1.5); Est. Creatinine Clearance* 43.57; Estimated Glomerular Filt Rate 61 ml/min
[2024-08-12 09:04] LABS: Alanine Aminotransferase* 26 U/L (4-50); Alkaline Phosphatase* 87 U/L (40-150); Anion Gap 9 mEq/L (7-15); Aspartate Amino Transferase* 36 U/L (12-35); Bilirubin Total* 0.6 mg/dL (0.1-1.5); Calcium* 9.0 mg/dL (8.4-10.6); Carbon Dioxide* 25 mmol/L (20-32); Glucose* 130 mg/dL (60-115); Total Protein* 7.1 g/dL (6.0-8.3)
[2024-08-12] MEDS: POTASSIUM CHLORIDE 10 MEQ/100 ML PIGGYBACK 100 MEQ IVPB ×2 (09:40→10:52)
[2024-08-12] MEDS: SODIUM CHLORIDE 0.9 % (FLUSH) 10 ML SYRINGE IVF ×2 (09:42→12:51)
[2024-08-12] MEDS: NIVOLUMAB 480 MG, TUBING PRIMARY 1 EACH, In-line 0.2 micron filter set 1 EACH in 0.9 % ... 290 MG IVPB (12:12)
[2024-08-12] MEDS: HEPARIN 500 UNIT/5 ML SYRINGE IVF (12:51)
--- NOTE | 2024-08-13 09:40 | ONC.NURNOTE ---
phoned in to report new onset edema of fingers - reports reddened and painful when he moves his fingers hand and arm are not swollen- this is the same side as his skin graft he received optivo yesterday without any difficulty states that he needs to be evaluated today, either PCP or urgent care will [facility]
--- NOTE | 2024-09-02 10:23 | ONC.NURNOTE ---
Pt's spouse called today stating pt has had a cough on and off for a week, cough worse last couple days. Also c/o fatigue, poor appetite, achy, no chills, has not been checking fever. Discussed with Eduarda Aceves APRN, recommended having pt come in and see Val Conrad tomorrow morning if pt is not in any respiratory distress, sob, fever. If that is the case pt should be seen today by primary care or ED. Pt's spouse denied these symptoms and would like to come in tomorrow morning to see Val. Explained that pt should be seen today if symptoms worsen.
[2024-09-03 08:26] LABS: Hematocrit 35.0 % (37.0-53.0); Hemoglobin* 11.3 gm/dL (13.5-17.5); Immature Granulocytes Abs Auto 0.01 K/uL (0.00-0.30); Immature Granulocytes Pct Auto 0.1 %; Mean Corpuscular HGB Conc 32 gm/dL (32-36); Mean Corpuscular Hemoglobin 28 pg (26-34); Mean Corpuscular Volume 86 fL (80-100); RDW Coefficient of Variation % 15.3 % (11.5-15.5); Red Blood Count 4.09 m/uL (4.30-5.90); White Blood Count* 7.20 K/uL (4.50-11.00)
[2024-09-03 08:32] LABS: Lymphocytes Absolute Auto 0.80 K/uL (0.90-2.90)
[2024-09-03 08:33] LABS: Slide Review Reflex No
[2024-09-03 08:41] LABS: Albumin* 3.9 g/dL (3.3-5.0); Chloride* 101 mmol/L (96-114); Potassium* 3.6 mmol/L (3.6-5.1); Sodium* 137 mmol/L (135-149)
[2024-09-03 08:43] LABS: Blood Urea Nitrogen* 24 mg/dL (7-30); Creatinine* 1.0 mg/dL (0.5-1.5); Est. Creatinine Clearance* 52.28; Estimated Glomerular Filt Rate 76 ml/min
[2024-09-03 08:44] LABS: Alanine Aminotransferase* 25 U/L (4-50); Alkaline Phosphatase* 86 U/L (40-150); Anion Gap 9 mEq/L (7-15); Aspartate Amino Transferase* 30 U/L (12-35); Bilirubin Total* 0.5 mg/dL (0.1-1.5); Calcium* 9.1 mg/dL (8.4-10.6); Carbon Dioxide* 27 mmol/L (20-32); Glucose* 155 mg/dL (60-115); Total Protein* 7.0 g/dL (6.0-8.3)
--- NOTE | 2024-09-07 16:07 | ONC.NURNOTE ---
Pt here for nursing assessment of right forearm. Redness improved, no pain or warmth to area, pt also states cough has improved. Pt has MD appt with primary care tomorrow and returns to [facility] on .
[2024-09-10] MEDS: SODIUM CHLORIDE 0.9 % (FLUSH) 10 ML SYRINGE IVF ×2 (09:10→12:25)
[2024-09-10 09:55] LABS: Hematocrit 33.9 % (37.0-53.0); Hemoglobin* 10.9 gm/dL (13.5-17.5); Immature Granulocytes Abs Auto 0.03 K/uL (0.00-0.30); Immature Granulocytes Pct Auto 0.3 %; Mean Corpuscular HGB Conc 32 gm/dL (32-36); Mean Corpuscular Hemoglobin 27 pg (26-34); Mean Corpuscular Volume 85 fL (80-100); RDW Coefficient of Variation % 15.5 % (11.5-15.5); Red Blood Count 4.01 m/uL (4.30-5.90); White Blood Count* 9.11 K/uL (4.50-11.00)
[2024-09-10 10:00] LABS: Lymphocytes Absolute Auto 0.80 K/uL (0.90-2.90); Slide Review Reflex No
[2024-09-10 10:06] LABS: Albumin* 3.7 g/dL (3.3-5.0); Chloride* 102 mmol/L (96-114); Sodium* 135 mmol/L (135-149)
[2024-09-10 10:07] LABS: Potassium* 3.6 mmol/L (3.6-5.1)
[2024-09-10 10:09] LABS: Alanine Aminotransferase* 32 U/L (4-50); Alkaline Phosphatase* 79 U/L (40-150); Anion Gap 6 mEq/L (7-15); Aspartate Amino Transferase* 36 U/L (12-35); Bilirubin Total* 0.4 mg/dL (0.1-1.5); Blood Urea Nitrogen* 25 mg/dL (7-30); Carbon Dioxide* 27 mmol/L (20-32); Creatinine* 1.3 mg/dL (0.5-1.5); Est. Creatinine Clearance* 40.22; Estimated Glomerular Filt Rate 55 ml/min; Total Protein* 6.6 g/dL (6.0-8.3)
[2024-09-10 10:10] LABS: Calcium* 8.7 mg/dL (8.4-10.6); Glucose* 144 mg/dL (60-115)
[2024-09-10 10:29] VITALS: BP 134/66; PULSE 70; TEMP 37; O2SAT 96
[2024-09-10] MEDS: NIVOLUMAB 480 MG, TUBING PRIMARY 1 EACH, In-line 0.2 micron filter set 1 EACH in 0.9 % ... 300 MG IVPB (11:50)
[2024-09-10] MEDS: HEPARIN 500 UNIT/5 ML SYRINGE IVF (12:25)
[2024-10-08 10:40] LABS: Hematocrit 34.0 % (37.0-53.0); Hemoglobin* 10.8 gm/dL (13.5-17.5); Immature Granulocytes Abs Auto 0.02 K/uL (0.00-0.30); Immature Granulocytes Pct Auto 0.3 %; Mean Corpuscular HGB Conc 32 gm/dL (32-36); Mean Corpuscular Hemoglobin 27 pg (26-34); Mean Corpuscular Volume 84 fL (80-100); RDW Coefficient of Variation % 15.7 % (11.5-15.5); Red Blood Count 4.06 m/uL (4.30-5.90); White Blood Count* 7.54 K/uL (4.50-11.00)
[2024-10-08 10:41] LABS: Lymphocytes Absolute Auto 0.70 K/uL (0.90-2.90)
[2024-10-08 10:42] LABS: Slide Review Reflex No
[2024-10-08 10:52] LABS: Albumin* 3.7 g/dL (3.3-5.0); Chloride* 100 mmol/L (96-114); Potassium* 3.4 mmol/L (3.6-5.1); Sodium* 134 mmol/L (135-149)
[2024-10-08 10:55] LABS: Alanine Aminotransferase* 20 U/L (4-50); Alkaline Phosphatase* 85 U/L (40-150); Anion Gap 6 mEq/L (7-15); Aspartate Amino Transferase* 32 U/L (12-35); Bilirubin Total* 0.5 mg/dL (0.1-1.5); Blood Urea Nitrogen* 16 mg/dL (7-30); Calcium* 8.8 mg/dL (8.4-10.6); Carbon Dioxide* 28 mmol/L (20-32); Creatinine* 1.0 mg/dL (0.5-1.5); Est. Creatinine Clearance* 52.28; Estimated Glomerular Filt Rate 76 ml/min; Glucose* 147 mg/dL (60-115); Total Protein* 6.8 g/dL (6.0-8.3)
[2024-10-15 13:07] LABS: Hematocrit 34.4 % (37.0-53.0); Hemoglobin* 11.0 gm/dL (13.5-17.5); Immature Granulocytes Abs Auto 0.05 K/uL (0.00-0.30); Immature Granulocytes Pct Auto 0.6 %; Lymphocytes Absolute Auto 1.10 K/uL (0.90-2.90); Mean Corpuscular HGB Conc 32 gm/dL (32-36); Mean Corpuscular Hemoglobin 27 pg (26-34); Mean Corpuscular Volume 84 fL (80-100); RDW Coefficient of Variation % 16.0 % (11.5-15.5); Red Blood Count 4.11 m/uL (4.30-5.90); White Blood Count* 7.77 K/uL (4.50-11.00)
[2024-10-15 13:09] LABS: Slide Review Reflex No
[2024-10-15 13:17] LABS: Albumin* 3.5 g/dL (3.3-5.0); Chloride* 100 mmol/L (96-114); Sodium* 133 mmol/L (135-149)
[2024-10-15 13:18] LABS: Potassium* 4.0 mmol/L (3.6-5.1)
[2024-10-15 13:20] LABS: Alanine Aminotransferase* 30 U/L (4-50); Alkaline Phosphatase* 76 U/L (40-150); Anion Gap 5 mEq/L (7-15); Aspartate Amino Transferase* 37 U/L (12-35); Bilirubin Total* 0.3 mg/dL (0.1-1.5); Blood Urea Nitrogen* 26 mg/dL (7-30); Carbon Dioxide* 28 mmol/L (20-32); Creatinine* 1.0 mg/dL (0.5-1.5); Est. Creatinine Clearance* 52.28; Estimated Glomerular Filt Rate 76 ml/min; Total Protein* 6.3 g/dL (6.0-8.3)
[2024-10-15 13:21] LABS: Calcium* 8.5 mg/dL (8.4-10.6); Glucose* 117 mg/dL (60-115)
[2024-10-15] MEDS: NIVOLUMAB 480 MG, TUBING PRIMARY 1 EACH, In-line 0.2 micron filter set 1 EACH in 0.9 % ... 290 MG IVPB (14:18)
[2024-10-15] MEDS: HEPARIN 500 UNIT/5 ML SYRINGE IVF (14:52)
[2024-10-15] MEDS: SODIUM CHLORIDE 0.9 % (FLUSH) 10 ML SYRINGE IVF (14:52)
--- NOTE | 2024-10-16 11:12 | ONC.NURNOTE ---
PET order faxed to [facility].
[2024-11-05 14:50] LABS: Hematocrit 31.2 % (37.0-53.0); Hemoglobin* 9.9 gm/dL (13.5-17.5); Immature Granulocytes Abs Auto 0.01 K/uL (0.00-0.30); Immature Granulocytes Pct Auto 0.2 %; Mean Corpuscular HGB Conc 32 gm/dL (32-36); Mean Corpuscular Hemoglobin 27 pg (26-34); Mean Corpuscular Volume 83 fL (80-100); RDW Coefficient of Variation % 16.7 % (11.5-15.5); Red Blood Count 3.74 m/uL (4.30-5.90); White Blood Count* 5.45 K/uL (4.50-11.00)
[2024-11-05 14:55] LABS: Lymphocytes Absolute Auto 0.80 K/uL (0.90-2.90); Slide Review Reflex No
[2024-11-05 15:15] LABS: Albumin* 3.6 g/dL (3.3-5.0); Chloride* 98 mmol/L (96-114); Potassium* 3.9 mmol/L (3.6-5.1); Sodium* 129 mmol/L (135-149)
[2024-11-05 15:18] LABS: Alanine Aminotransferase* 17 U/L (4-50); Alkaline Phosphatase* 84 U/L (40-150); Aspartate Amino Transferase* 30 U/L (12-35); Bilirubin Total* 0.3 mg/dL (0.1-1.5); Blood Urea Nitrogen* 18 mg/dL (7-30); Calcium* 8.8 mg/dL (8.4-10.6); Carbon Dioxide* 27 mmol/L (20-32); Creatinine* 0.8 mg/dL (0.5-1.5); Est. Creatinine Clearance* 52.28; Estimated Glomerular Filt Rate 89 ml/min; Glucose* 109 mg/dL (60-115); Total Protein* 6.7 g/dL (6.0-8.3)
[2024-11-05 15:25] LABS: Anion Gap 4 mEq/L (7-15)
--- NOTE | 2024-11-05 16:27 | ONC.NURNOTE ---
Na- 129, discussed with Eduarda Groves APRN. Pt encouraged to add salt to diet this weekend and add electrolytes such as gatorade instead of just water. Pt can be reevaluated on 11/10/24 at his appt with Dr. Barron.
[2024-11-10] MEDS: NIVOLUMAB 480 MG, TUBING PRIMARY 1 EACH, In-line 0.2 micron filter set 1 EACH in 0.9 % ... 290 MG IVPB (14:48)
[2024-11-10] MEDS: HEPARIN 500 UNIT/5 ML SYRINGE IVF (15:19)
[2024-11-10] MEDS: SODIUM CHLORIDE 0.9 % (FLUSH) 10 ML SYRINGE IVF (15:19)
== END 2024-12-07 23:59 | disposition home or self-care (01) ==
LOC: CCIC 14:30
PROVIDERS: Clinical Nurse Specialist; Physician Assistant; PCP Family Medicine; Referring Provider Family Medicine; Visit Provider Internal Medicine Hematology & Oncology
DX: Z51.12 Encounter for antineoplastic immunotherapy (principal); C43.62 Malignant melanoma of left upper limb, including shoulder; E87.1 Hypo-osmolality and hyponatremia; R26.89 Other abnormalities of gait and mobility; I89.0 Lymphedema, not elsewhere classified
CPT/HCPCS: 36415; 36591; 80053; 84443; 84550; 85025; 96361; 96413; 99202; 99205; 99211; 99214; 99215; G0463; J1642; J3480; J7050; J9299